=== PATIENT | female | born 1945 | race Caucasian/White ===

== ENCOUNTER → 2016-08-17 | Outpatient (CLI) | payer MEDICARE ==
[~2016-08-17] MED LIST: CLON0.5T4 PO; DICY10CA13 PO; FLUO-138 PO; FLUT16SP EA NOSTRIL; GLIP10TA9 PO; IBUP-1724 PO; LEVO50TA11 PO; LISI10TA7 PO; LISINOPRIL; LORA10TA62 PO; PANT20TA PO; TRIA1TAB3 PO
--- NOTE | 2016-08-17 17:51 | DI ---
Indication: ITS.REASON: M25.561 PAIN IN RT KNEE PROCEDURE: MRI KNEE RIGHT W/O CONTRAST: Encounter: Initial Comparison: None Technique: Multiplanar multisequence MR imaging of the right knee was performed without contrast. Findings: There is a moderate knee effusion. There are moderate arthritic changes involving primarily the medial joint compartment greater than the lateral or patellofemoral joint compartment. There is moderate diffuse chondromalacia without definite focal osteochondral defect. No definite ligamentous injury. The lateral meniscus is unremarkable. There is extensive abnormal signal involving the medial meniscus extending from the posterior horn through the body all the way to the anterior horn with probably horizontal tear reaching the free edge and the tibial articular surface. There is no definite buckle handle component or displaced component. The body of the meniscus is is extruded medially out of the joint space. The extensor tendons are unremarkable. No periarticular abnormality. Impression: Extensive complex tearing involving the body and posterior horn of the medial meniscus with advanced osteoarthritis involving predominantly the medial joint compartment and to a lesser degree the lateral and patellofemoral joint compartment. No definite ligamentous injury. .
== END ==
LOC: IMA 14:40
PROVIDERS: ATTEND Family Medicine
DX: S83.231A Complex tear of medial meniscus, current injury, right knee, initial encounter (principal); X58.XXXA Exposure to other specified factors, initial encounter; Y93.9 Activity, unspecified; Y92.9 Unspecified place or not applicable; Y99.9 Unspecified external cause status; M25.561 Pain in right knee

== ENCOUNTER → 2016-09-17 | Outpatient (CLI) | payer MEDICARE ==
--- NOTE | 2016-09-17 15:37 | DI ---
INDICATION: ITS.REASON: Z01.811 PRE OP CHEST EXAM PROCEDURE: CHEST 2-VIEWS UPRIGHT (PA \T\ LAT) Encounter: Initial COMPARISON: February 28, 2016 FINDINGS: The lungs are clear without evidence of focal abnormal airspace opacity. There is no pleural effusion or pneumothorax. The heart size, mediastinal contours and pulmonary vascularity are within normal limits. IMPRESSION: No acute cardiopulmonary disease. .
== END ==
LOC: IMA 14:58
PROVIDERS: ATTEND Family Medicine
DX: Z01.811 Encounter for preprocedural respiratory examination (principal)

== ENCOUNTER 2016-12-15 07:30 | Inpatient (IN) ==
[2016-12-15 09:26] VITALS: BMI 31.6
[2016-12-15] MEDS ORDERED: TRANEXAMIC ACID 1,000 MG in NS 100 ML IV ONE (09:33)
[2016-12-15] MEDS ORDERED: ONDANSETRON 4 MG/2 ML INJECTION IVP ONE (09:33)
[2016-12-15] MEDS ORDERED: CEFAZOLIN 1 G INJECTION IVP ONE (09:33)
[2016-12-15] MEDS ORDERED: NOZIN NASAL SWAB NAS ONE ×2 (09:33→16:50)
[2016-12-15] MEDS ORDERED: EPINEPHrine 0.25 MG, BUPIVACAINE 0.25% PF 30 ML, MORPHINE SULFATE 15 MG, KETOROLAC INJ ... OPSITE ONE (09:33)
[2016-12-15] MEDS ORDERED: ACETAMINOPHEN 500 MG TABLET PO ONE (09:33)
[2016-12-15] MEDS ORDERED: SALINE FLUSH 10ml SYRINGE IVF PRN (09:33)
[2016-12-15] MEDS ORDERED: METOCLOPRAMIDE 10mg/2ml INJECTION IVP ONE (09:33)
[2016-12-15] MEDS ORDERED: FAMOTIDINE PB 20 MG/50 ML BAG IV ONE (09:33)
[2016-12-15] MEDS ORDERED: LIDOCAINE 1% (10mg/ml) 2mL INJ PF SDV ID ONE (09:33)
[2016-12-15] MEDS: LR 1,000 ML IV SCH ×3 (10:30→15:58)
--- NOTE | 2016-12-15 12:42 | Anesthesia Preoperative Report ---
Anesthesia Preoperative Record - Date and Time Date: 12/15/16 Preoperative Diagnosis: Rt TKA M17.11 primary osteoarthrtis Proposed Procedure: right total knee NPO Since Date: 12/14/16 NPO Since Time: 23:00 Allergies/Adverse Reactions: Allergies Allergy/AdvReac Type Severity Reaction Status Date / Time levofloxacin Allergy Intermediate Verified 11/04/16 09:54 - Vital Signs Vital Signs: Temperature 98.9 F 12/15/16 09:19 Pulse Rate 55 L 12/15/16 11:11 Respiratory Rate 18 12/15/16 09:19 Blood Pressure 159/72 H 12/15/16 09:19 Pulse Oximetry 98 12/15/16 09:19 Oxygen Delivery Method Room Air Height and Weight: Height 1.57 m Weight 78.4 kg Body Mass Index 31.6 - Medications Inpatient Medications: Current Medications Epinephrine HCl 0.25 mg/Bupivacaine HCl 30 ml/Morphine Sulfate 15 mg/Ketorolac Tromethamine 60 mg/Sodium Chloride 65.25 mls @ 1 mls/hr OPSITE INTRAOP ONE PRN Reason: Protocol Stop: 12/18/16 02:47 Lactated Ringer's (Lactated Ringers) 1,000 mls @ 50 mls/hr IV .Q20H SERGIO Last Admin: 12/15/16 10:30 Dose: 50 mls/hr Sodium Chloride (Iv Flush) 10 - 80 ml IVF PRN PRN PRN Reason: Flushing Home Medications: Home Medications Medication Instructions Recorded Confirmed Type Levothyroxine Sodium 50 mcg PO ACB #0 12/01/14 12/15/16 History glipiZIDE [Glipizide] 10 mg PO DAILY #0 04/21/15 12/15/16 History Lisinopril [Prinivil] 40 mg PO HS 11/05/16 12/15/16 History Loratadine [Claritin] 10 mg PO DAILY 11/05/16 12/15/16 History clonazePAM [Clonazepam] 0.5 mg PO HS PRN 11/05/16 12/15/16 History raNITIdine HCl [Zantac] 1 tab PO BID PRN 11/05/16 12/15/16 History Amlodipine [Norvasc] 10 mg PO DAILY 12/11/16 12/15/16 History Cyanocobalamin/Folic Acid [Vitamin 1 each PO DAILY 12/11/16 12/15/16 History L11-Axsic Acid Tablet] FLUoxetine [Prozac] 20 mg PO DAILY 12/11/16 12/15/16 History Nebivolol [Bystolic] 5 mg PO DAILY 12/11/16 12/15/16 History Potassium 99 mg PO DAILY 12/11/16 12/15/16 History Triamterene/Hydrochlorothiazid 1 tab PO DAILY 12/11/16 12/15/16 History [Triamterene-Hctz 37.5-25 mg Tb] Zolpidem Tartrate [Ambien] 10 mg PO HS PRN 12/11/16 12/15/16 History - Medical History Cardiovascular: Reports: Hypertension Neuro/Musculoskeletal: Reports: Depression (anxiety ) Renal/Endocrine: Reports: Diabetes Mellitus Type 2 - Surgical History HEENT Surgeries: Reports: Nose Surgery (multiple sinus surgeries), Tonsillectomy GI Surgery/Treatments: Reports: Cholecystectomy, Colonoscopy (2012) Musculoskeletal Surgery/Tx: Reports: Other (ORIF left wrist) Reproductive Surgery/Treatment: Reports: Hysteroscopy, Tubal Ligation Hx Family Anesthesia Reaction: No History of Motion Sickness: No - Social History Smoking Status: Never smoker - Pertinent Findings Laboratory: CBC and BMP 12/15/16 09:43 BMP 12/15/16 09:43 Sodium 143 Potassium 3.7 Chloride 107 Carbon Dioxide 27 BUN 16.0 Creatinine 0.9 Glucose 149 H Calcium 9.2 EKG Rhythm: Sinus Bradycardia - Physical Exam Respiratory Exam: Present: lungs clear Cardiovascular Exam: Present: regular rate and rhythm - Airway Assessment Mallampati Score: III TMD: 2 Fingerbreadths Neck Extension: fair Teeth: partial lower dentures Overall Assessment: may be difficult intubation - Plan Anesthesia: General Inhalation Gases Peripheral Nerve Block: Saphenous-Right - Discussion Discussion: Discussed risks/options/alternatives of anesthesia and questions answered. Patient consents. Nursing pain assessment noted. Attestation Statement: Prior to the delivery of any anesthetic medication, I examined the patient, developed the plan, obtained the patient's consent and discussed the risk and benefits of the procedure with the patient/guardian.
[2016-12-15] MEDS ORDERED: MIDAZOLAM 2mg/2ml INJECTION IVP ONE (12:45)
[2016-12-15] MEDS ORDERED: SCOPOLAMINE 1.5 MG PATCH TD ONE (12:45)
[2016-12-15] MEDS ORDERED: ROPIVACAINE 0.5% (5mg/ml) 30ml INJ ONE ×2 (13:00)
[2016-12-15] MEDS ORDERED: PROPOFOL 500 MG/50 ML VIAL IV ONE (13:11)
[2016-12-15] MEDS ORDERED: FentaNYL 100 MCG/2 ML INJECTION ONE ×3 (13:11→14:16)
[2016-12-15] MEDS ORDERED: LIDOCAINE 2% (100mg/5mL) PF 5ml vl ONE (13:11)
[2016-12-15] MEDS ORDERED: KETAMINE 500 MG/10 ML INJECTION ONE (13:12)
[2016-12-15] MEDS ORDERED: MIDAZOLAM 2mg/2ml INJECTION ONE (13:12)
[2016-12-15] MEDS ORDERED: GLYCOPYRROLATE 0.4 MG/2 ML INJECTION ONE (13:22)
[2016-12-15] MEDS ORDERED: VANCOMYCIN 1,000 MG INJECTION ONE (13:27)
[2016-12-15] MEDS ORDERED: EPHEDRINE 50mg/ml INJECTION ONE (13:28)
--- NOTE | 2016-12-15 13:39 | History & Physical Update ---
- History and Physical Update Date: 12/15/16 Update: I evaluated this patient and found no changes in the history and clinical exam findings. The treatment plan and recommendations are also unchanged from the previous documentation.
[2016-12-15] MEDS ORDERED: ACETAMINOPHEN IV 1,000 MG/100 ML VIAL IV ONE (14:01)
--- NOTE | 2016-12-15 14:09 | Anesthesia Procedure Note ---
Peripheral Nerve Blockade - Procedure Physician: Lucho Lainez MD Date: 12/15/16 Surgical Procedure: right knee arthoplasty Discussion: Discussed risks/options/alternatives of anesthesia and questions answered. Patient consents. Nursing pain assessment noted. Block Start: 12:59 Block Stop: 13:04 Blocked Employed: Adductor Canal Indication: Post-Operative Pain Approach: Right Side Confirmed Position: Supine Patient: Consent, Risks/Benefits Discussed, Informed, Post Block Act. Discussed Initial Vital Signs: Temperature 98.9 F 12/15/16 09:19 Temperature Source Oral 12/15/16 09:19 Pulse Rate 50 L 12/15/16 09:19 Respiratory Rate 18 12/15/16 09:19 Blood Pressure 159/72 H 12/15/16 09:19 Blood Pressure Mean 101 12/15/16 09:19 Pulse Oximetry 98 12/15/16 09:19 Oxygen Delivery Method 12/15/16 09:19 Post Vital Signs: Temperature 98.9 F 12/15/16 09:19 Pulse Rate 50 L 12/15/16 13:04 Respiratory Rate 20 12/15/16 13:04 Blood Pressure 142/65 H 12/15/16 13:04 Pulse Oximetry 96 12/15/16 13:04 Oxygen Delivery Method Nasal Cannula Oxygen Flow Rate 2 Initial Pain Pain Score: 3 Post Block Pain Score: 3 Prep: Chlorhexadine/ETOH Ultrasound Used?: Yes - Injectate Ropivacaine (%): 0.5 Ropivacaine (mL): 20 Was Epi 1:200,000 Used?: No Injection: Injection made incrementally with constant monitoring and aspiration every ml
[2016-12-15] MEDS ORDERED: VANCOMYCIN 1,000 MG INJECTION IAR ONE (14:19)
[2016-12-15] MEDS ORDERED: ONDANSETRON 4 MG/2 ML INJECTION ONE (15:05)
--- NOTE | 2016-12-15 15:23 | Anesthesia Postoperative Note ---
- Date and Time Date: 12/15/16 Time: 15:25 - Status Patient Participated in Evaluation: Patient Participated in Person Vital Signs: Temperature 98.9 F 12/15/16 09:19 Pulse Rate 50 L 12/15/16 13:04 Respiratory Rate 20 12/15/16 13:04 Blood Pressure 142/65 H 12/15/16 13:04 Pulse Oximetry 96 12/15/16 13:04 Oxygen Delivery Method Nasal Cannula Oxygen Flow Rate 2 Respiratory Function: Airway Patent Cardiovascular Function: Regular Pulse EKG Rhythm: Normal Sinus Rhythm Mental Status: Alert and Oriented Pain Intensity: 4 Hydration: IV Infusing Complications During Recover: None Apparent - Follow-Up Instructions Instructions: Per Surgeon
[2016-12-15] MEDS: HYDROMORPHONE 2 MG/ML INJECTION IVP PRN ×3 (15:53→16:27)
--- NOTE | 2016-12-15 15:58 | Operative Note ---
- Procedure Side: right Preoperative Diagnosis: knee primary DJD Postoperative Diagnosis: Same as preoperative diagnosis. Operation: total knee arthroplasty Surgeon: Jose C Lainez MD Ed Special Education Teacher: Aroldo Gonzalez Complications: None. Anesthesia: General TIVA Peripheral Nerve Block: Saphenous-Right Estimated Blood Loss: See Anesthesia Record. Fluids: Please see Anesthesia Record. Description of Procedure: Mrs. Ge and her right knee were identified and marked in the preoperative holding area. She was brought back to the operating suite and placed supine on the operating table. Spinal anesthetic was administered. The operative lower extremity was prepped and draped in a sterile fashion. Timeout was performed. She had a fixed varus deformity with no flexion contracture. An anterior midline incision followed by medial parapatellar arthrotomy was performed. The tourniquet was not used until cementing. Hemostasis was obtained with electrocautery. The patella was resurfaced to a size 29. A distal femoral osteotomy was then performed in 5 of valgus using intramedullary guide. The femur was sized at a 3 and rotation set using the epicondylar axis. Distal femoral cuts were performed with a 4-in-1 cutting block. A proximal tibial cut was then made perpendicular to its long axis using an extramedullary guide. At this point remaining meniscus and osteophytes were removed and joint cocktail was injected throughout soft tissue. Trial components were placed with a 9 mm spacer. Partial release of the PCL was performed. This allowed for full extension and flexion and the patella tracked well. The leg was then exsanguinated and the tourniquet inflated to 250 mmHg. The tibia was then stamped at a size 3 at the proper rotation. The bone was then prepared for cementing and Edith Triathalon components were cemented into place and allowed to cure in extension. The tourniquet was then let down and hemostasis obtained with electrocautery. Betadine solution was used during the curing period for 3 minutes. 1 g of vancomycin powder was placed into the joint before the capsulotomy was repaired with #1 Vicryl. I then left my financial legal assistant close the subcutaneous tissue and skin with 2-0 Vicryl and Monocryl. Dermabond was used on the skin. The drapes were then removed and she was taken to recovery room under the care of anesthesia.
[2016-12-15] MEDS ORDERED: ONDANSETRON 4 MG/2 ML INJECTION IV ONE ×2 (16:20)
--- NOTE | 2016-12-15 16:27 | XRay Report ---
Indication: postoperative image PROCEDURE: XR knee RT 2V: Encounter: Initial Comparison: September 02, 2016 Findings: Postoperative changes of right total knee replacement are seen. There is expected postoperative subcutaneous gas. No evidence of hardware failure or acute fracture. No retained radiopaque surgical instruments or sponges. Overlying material causing artifact. Impression: New right total knee prosthesis without evidence of immediate complication. .
[2016-12-15] MEDS ORDERED: ClonazePAM 0.5 MG TABLET PO PRN (16:50)
[2016-12-15] MEDS ORDERED: Oxycodone *IR* 5 MG TABLET PO PRN (16:50)
[2016-12-15] MEDS ORDERED: DiphenhydrAMINE 25 MG CAPSULE PO PRN (16:50)
[2016-12-15] MEDS ORDERED: RANITIDINE 150 MG TABLET PO PRN (16:50)
[2016-12-15] MEDS ORDERED: ONDANSETRON 4 MG/2 ML INJECTION IVP PRN (16:50)
[2016-12-15] MEDS ORDERED: DiphenhydrAMINE 50 MG/ML INJECTION IVP PRN (16:50)
[2016-12-15] MEDS: NS 1,000 ML IV SCH (17:18)
[2016-12-15] MEDS: ACETAMINOPHEN 325 MG TABLET PO SCH (17:52)
[2016-12-15] MEDS ORDERED: ACETAMINOPHEN 160mg/5ml ORAL LIQUID PO PRN ×2 (17:55→18:24)
--- NOTE | 2016-12-15 18:53 | Consult Note ---
Consult Information - Data of Consult Consult date: 12/15/16 Requesting Physician: Lucho Lainez MD Primary Care Provider: [facility] - Consult Narrative Reason for consult: hypertension, bradycardia History of present illness: Mrs. Ge is a 71-year-old female hospitalized by Dr. Lainez for right TKA for underlying degenerative joint disease. Surgery has been previously counseled on several occasions due to uncontrolled hypertension which the patient variably attributes to severe pain, stress, and medications for her sinuses. She's recently been started on amlodipine and Bystolic although timing of medication changes is unclear. Intraoperatively bradycardia developed with heart rate as low as 45 at one point. Blood pressures have been variable with preoperative blood pressure 159/72, maximum blood pressure 201/81, and current blood pressure 145/73. The patient reports previously being treated with lisinopril ( discharged on 10 mg lisinopril and Dyazide 37.5/25 in 02/2016) which was discontinued at some point for unclear reason. She describes chronic headaches which she attributes to sinus symptoms, denies chest pain, palpitations, or hematuria. [facility] Patient Stated Medical History Hypertension Diabetes mellitus, type II-A1c reported to be 6.? In August 2016 Hyperlipidemia Hypothyroidism Depression/anxiety with panic attacks GERD DJD Bilateral sciatica requiring prior injections Surgical History: Hysterectomy, Tonsillectomy, nasal surg-multiple, cholecystectomy, Lt wrist-ORIF, tubal ligation Family History: Family History (Last Reviewed 11/04/16 @ 10:23 by Lucho Lainez MD) Father HTN (hypertension) Heart attack Mother Diabetes Osteoarthritis Family History Updates: Additional family history of breast cancer and mood disorder reported - Social History Smoking status: Never smoker Alcohol intake frequency: does not drink Current residence: Apartment/Private Home Social history: PCP-Lisa Jimenez, full code Review of Systems Comprehensive ROS: completed and no additional positive findings except those as stated (blurry vision and dry eyes, trouble swallowing pills, reflux, occasional palpitations, intermittent nausea-patient correlates with medications frequently, nocturia, some medications caused red spots on her skin , anxiety/panic attack due to severe pain in her knee, chronic sinus trouble with headaches and nasal dryness, puffy face, weakness in her legs due to knee pain. Remainder of review of systems was negative or as noted in the history of present illness.) Medications Home Medications Medication Instructions Recorded Confirmed Type Levothyroxine Sodium 50 mcg PO ACB #0 12/01/14 12/15/16 History glipiZIDE [Glipizide] 10 mg PO DAILY #0 04/21/15 12/15/16 History Lisinopril [Prinivil] 40 mg PO HS 11/05/16 12/15/16 History Loratadine [Claritin] 10 mg PO DAILY 11/05/16 12/15/16 History clonazePAM [Clonazepam] 0.5 mg PO HS PRN 11/05/16 12/15/16 History raNITIdine HCl [Zantac] 1 tab PO BID PRN 11/05/16 12/15/16 History Amlodipine [Norvasc] 10 mg PO DAILY 12/11/16 12/15/16 History Cyanocobalamin/Folic Acid [Vitamin 1 each PO DAILY 12/11/16 12/15/16 History T07-Bvrvc Acid Tablet] FLUoxetine [Prozac] 20 mg PO DAILY 12/11/16 12/15/16 History Nebivolol [Bystolic] 5 mg PO DAILY 12/11/16 12/15/16 History Potassium 99 mg PO DAILY 12/11/16 12/15/16 History Triamterene/Hydrochlorothiazid 1 tab PO DAILY 12/11/16 12/15/16 History [Triamterene-Hctz 37.5-25 mg Tb] Zolpidem Tartrate [Ambien] 10 mg PO HS PRN 12/11/16 12/15/16 History Allergies Allergy/AdvReac Type Severity Reaction Status Date / Time levofloxacin Allergy Intermediate Verified 11/04/16 09:54 Exam Vital Signs: Temperature 97.6 F 12/15/16 17:15 Pulse Rate 55 L 12/15/16 18:15 Respiratory Rate 18 12/15/16 17:15 Blood Pressure 161/77 H 12/15/16 18:15 Pulse Oximetry 95 12/15/16 18:15 Oxygen Delivery Method Room Air EXAM: General-NAD, alert HEENT-PERRL, EOMI without nystagmus, conjugate gaze, conjunctiva clear, sclera anicteric facial structures symmetric, oropharynx clear, neck supple and without adenopathy Lungs-respirations nonlabored, good airflow, breath sounds clear Cardiac-regular rhythm, S1-S2 Abd-soft, nontender, bowel sounds present Ext-without edema, Polar Pack on right knee Skin-without rash or evidence of wounds MS-no active synovitis Neuro-cranial nerves 3-12 intact, motor tone normal, no tremors evident, sensation intact to light touch symmetrically distal extremities 4, [employer] 5/5, dorsiflexion/plantarflexion intact bilaterally with retained power Psych-some push of speech and perseveration, cooperative Height/Weight/BMI: Height 1.57 m Weight 78.4 kg Body Mass Index 31.6 Results - Labs CBC & Chem 7: 12/15/16 09:43 - ECG Data Tracing #1 I reviewed this ECG and interpreted as documented below: (sinus bradycardia, rate 45, T-wave inversion in lead III without ST changes; this is unchanged from an EKG in 2016 when patient had bradycardia with rate of 45 and T inversion in lead III) Assessment and Plan (1) HTN (hypertension) Current visit: No Status: Chronic (2) Sinus bradycardia Current visit: Yes Status: Acute Resuscitation Status: Full Code Assessment and Plan: Impression: Hypertension, uncontrolled Sinus bradycardia Diabetes mellitus, diabetic nephropathy, CKD-stage II, 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 Bystolic will be held initially and blood pressures followed. Patient indicated her intent to resume lisinopril but she has listed as taking 40 mg daily on her medication list. I think there is some uncertainty about what medications the patient actually takes at home based on her reported difficulty swallowing medications and side effects she describes. At present continue amlodipine, lisinopril, and diuretic. Monitor renal function and heart rate on telemetry. Of note sinus bradycardia with heart rate of 45 previously seen on EKG a little over a year ago at which time records indicate patient was taking no blood pressure medications because "they don't work". May have underlying bradycardia not due to beta beatriz. Will additionally monitor blood sugars and assist with glucose control as needed. Agree with diabetic diet, oral agent currently on hold pending demonstration of good oral intake. Corrective insulin ordered if needed overnight. Anticipate resumption of glipizide in the next 24 hours. Continue home psychiatric regimen. Discussed with Aroldo JEFFERSON, nursing, altered records reviewed, EKGs-current/ old reviewed, laboratory data reviewed. Hospital Course Summary Disclaimer: The visit summary below is not to be considered part of the above Progress Note. Sepsis Assessment - Evaluation Sepsis screening result: No Definite Risk
[2016-12-15] MEDS ORDERED: INSULIN ASPART 100unit/ml INJECTION SQ PRN (19:17)
[2016-12-15] MEDS: ASPIRIN *EC* 325 MG TABLET PO SCH (20:50)
[2016-12-15] MEDS: CEFAZOLIN 2 G in NS 100 ML IV SCH (20:51)
[2016-12-15] MEDS: INSULIN ASPART 100unit/ml INJECTION SQ PRN (20:51)
[2016-12-15] MEDS: DOCUSATE SODIUM 100 MG CAPSULE PO SCH (20:51)
[2016-12-15] MEDS ORDERED: LISINOPRIL 40 MG TABLET PO SCH (21:00)
[2016-12-15] MEDS ORDERED: SENNOSIDES 8.6 MG TABLET PO SCH (21:00)
[2016-12-15] MEDS: ACETAMINOPHEN 160mg/5ml ORAL LIQUID PO SCH (23:00)
[2016-12-15] MEDS: NOZIN NASAL SWAB NAS SCH (23:00)
[2016-12-16] MEDS: ACETAMINOPHEN 325 MG TABLET PO SCH (00:08)
[2016-12-16] MEDS: CEFAZOLIN 2 G in NS 100 ML IV SCH (04:25)
[2016-12-16] MEDS: NOZIN NASAL SWAB NAS SCH ×2 (05:23→14:54)
[2016-12-16] MEDS: ACETAMINOPHEN 160mg/5ml ORAL LIQUID PO SCH ×3 (06:05→14:54)
[2016-12-16] MEDS: NS 1,000 ML IV SCH (06:09)
[2016-12-16] MEDS ORDERED: LEVOTHYROXINE 50 MCG TABLET PO SCH (06:30)
[2016-12-16] MEDS: FLUoxetine 20 MG CAPSULE PO SCH ×2 (08:33→10:36)
[2016-12-16] MEDS ORDERED: TRIAMTERENE/HCTZ 37.5 MG-25 MG TABLET PO SCH (09:00)
[2016-12-16] MEDS ORDERED: FOLBIC TABLET PO SCH (09:00)
[2016-12-16] MEDS ORDERED: AMLODIPINE 10 MG TABLET PO SCH (09:00)
[2016-12-16] MEDS ORDERED: POLYETHYL GLYCOL 3350 17gm PACKET PO SCH (09:00)
[2016-12-16] MEDS ORDERED: FLUTICASONE NASAL SPRAY 50mcg EA NOSTRIL SCH (09:00)
[2016-12-16] MEDS ORDERED: LORATADINE 10 MG TABLET PO SCH (09:00)
[2016-12-16] MEDS: DOCUSATE SODIUM 100 MG CAPSULE PO SCH (10:35)
[2016-12-16] MEDS: ASPIRIN *EC* 325 MG TABLET PO SCH (11:02)
[2016-12-16] MEDS ORDERED: FALL RISK - PHARMACY CONSULT MC PRN (11:22)
--- NOTE | 2016-12-16 12:12 | Orthopedic Progress Note ---
Date: Doing well. No specific concerns. Orthopedic Objective Vital signs: Temperature 97.3 F 12/16/16 07:30 Pulse Rate 60 12/16/16 08:00 Respiratory Rate 16 12/16/16 07:30 Blood Pressure 171/67 H 12/16/16 07:30 Pulse Oximetry 90 12/16/16 07:30 Oxygen Delivery Method Room Air Oxygen Flow Rate 2 Height and Weight: Height 5 ft 2 in Weight 83.6 kg Body Mass Index 31.6 - Constitutional General Appearance: Present: no acute distress - Respiratory Exam Present: non-labored - Cardiovascular Exam Present: pedal pulses intact Capillary Refill: < 2-3 Seconds - Extremities Exam Absent: calf tenderness - Neurological Exam Present: no deficits. Absent: intact to light touch - Psychiatric Exam Present: alert - Wound Management Right Knee Drainage Amount: None Primary Dressing: Mepilex - Labs Result Diagrams: 12/16/16 04:28 12/16/16 04:28 Abnormal lab results 12/16/16 12/16/16 Range/Units 04:28 04:28 WBC 11.7 H (4.5-11.0) T/MM3 RBC 3.77 L (4.00-5.20) M/MM3 Hgb 11.3 L (12-16) GM/DL Hct 35.1 L (36-46) % Potassium 3.4 L (3.6-5) MEQ/L Calcium 8.2 L D (8.4-10.2) MG/DL H & H 12/16/16 Range/Units 04:28 Hgb 11.3 L (12-16) GM/DL Hct 35.1 L (36-46) % Orthopedic Assessment and Plan (1) Arthritis of knee, right Status: Resolved Assessment and Plan: Doing well. Continue current treatment. Anticipate discharge today. Hospital Course Summary Disclaimer: The visit summary below is not to be considered part of the above Progress Note.
[2016-12-16] MEDS: INSULIN ASPART 100unit/ml INJECTION SQ PRN ×2 (12:51→15:03)
[2016-12-16 13:24] VITALS: BP 136/74; PULSE 55; RESP 20; TEMP 98.2; O2SAT 96
--- NOTE | 2016-12-16 13:44 | Discharge Summary ---
Orthopedic Discharge Info Date of admission: 12/15/16 08:57 Attending Physician: Lucho Lainez MD Consults: 12/15/16 09:33 Consult to Anesthesiology [CONS] Routine Consulting Provider: RONNY Onofre Reason For Exam: Preoperative Assessment 12/15/16 16:50 Case Management Consult [CONS] Routine Reason For Exam: Discharge Planning DME-Walker [CONS] Routine Height: 5 ft 2 in Weight: 172 lb 13.478 oz Comment: change dressing in 2 weeks Physician Consult [CONS] Routine Consulting Provider: Areli Burgos Reason For Exam: Bradycardia, Hx of HTN, Ordering Provider has Notified Special Officer Automat: No Total Joint Outpatient Therapy [CONS] Routine Comment: change dressing in 2 weeks - Discharge Diagnosis (1) Arthritis of knee, right Status: Resolved - Procedures Procedures: Procedures Replacement of Right Knee Joint with Synthetic Substitute, Cemented, Open Approach (12/15/16) - Laboratory Result Diagrams: 12/16/16 04:28 12/16/16 04:28 Laboratory: Abnormal lab results 12/16/16 12/16/16 Range/Units 04:28 04:28 WBC 11.7 H (4.5-11.0) T/MM3 RBC 3.77 L (4.00-5.20) M/MM3 Hgb 11.3 L (12-16) GM/DL Hct 35.1 L (36-46) % Potassium 3.4 L (3.6-5) MEQ/L Calcium 8.2 L D (8.4-10.2) MG/DL H & H 12/16/16 Range/Units 04:28 Hgb 11.3 L (12-16) GM/DL Hct 35.1 L (36-46) % Orthopedic Discharge HPI - HPI Comments This patient was admitted for elective surgical tx of end stage degenerative joint disease that failed to respond to conservative treatment. Further details of this is found in the admission H&P. Orthopedic Hospital Course Hospital course: 12/16/16 13:42 After appropriate preoperative clearance and signing of operative consent, the patient was given IV antibiotics, according to orthopedic protocol. The patient was taken to the operating room and underwent elective joint arthroplasty. Following surgery, antibiotics were discontinued less than 24 hours according to joint protocol. Appropriate anticoagulants were initiated and SCDs added for DVT prevention. The dressing was clean, dry, and intact. Pain control was obtained via multimodal approach. Bowel motivation addressed with scheduled and PRN medications. Early mobilization was initiated through PT services. Discharge arrangements made by a collaborative effort between the patient and Case Management. Follow-up is scheduled in 2-3 weeks. Discharge instructions given by orthopedic providers and nursing staff at discharge. Discharge condition was good. Ongoing care required?: No - Postoperative Anemia patient received IVF, labs monitored daily, no intervention required, HGB drop- acceptable - Leukocytosis due to surgical stress response Discharge Plan - Med Rec/Dispo Referrals/Follow Up: Lucho Lainez MD [Physician] - 01/06/17 10:30 am Prescriptions: New Aspirin *EC* [Ecotrin] 325 mg PO BID #84 tablet Oxycodone *Ir* [Roxicodone *Ir*] 5 - 15 mg PO Q3H PRN #60 tablet PRN Reason: Breakthrough Pain Continue glipiZIDE [Glipizide] 10 mg PO DAILY #0 Ibuprofen 200 - 400 mg PO Q4H PRN 30 Days #0 tab PRN Reason: PAIN raNITIdine HCl [Zantac] 1 tab PO BID PRN PRN Reason: Epigastric Distress Loratadine [Claritin] 10 mg PO DAILY clonazePAM [Clonazepam] 0.5 mg PO HS PRN PRN Reason: Anxiety Nebivolol [Bystolic] 5 mg PO DAILY Cyanocobalamin/Folic Acid [Vitamin K20-Axfxx Acid Tablet] 1 each PO DAILY Potassium 99 mg PO DAILY Zolpidem Tartrate [Ambien] 10 mg PO HS PRN PRN Reason: Sleep FLUoxetine [Prozac] 20 mg PO DAILY Levothyroxine Sodium 50 mcg PO ACB #0 Fluticasone Nasal Wesley [Flonase] 2 spray EA NOSTRIL DAILY 30 Days #0 ml Lisinopril [Prinivil] 40 mg PO HS Amlodipine [Norvasc] 10 mg PO DAILY Triamterene/Hydrochlorothiazid [Triamterene-Hctz 37.5-25 mg Tb] 1 tab PO DAILY - Disposition [facility]
[2016-12-16] MEDS ORDERED: SENNOSIDES 8.6 MG TABLET PO PRN (15:16)
--- NOTE | 2016-12-16 18:58 | Progress Note ---
Subjective: Mrs. Ge was seen shortly after ambulating with physical therapy this morning. She complained of minor pain in her knee but was with pleased with her surgical outcome. She continued to complain about side effects from multiple medications. She was taking by mouth well although reported some mild nausea this morning. She had minimal lightheadedness. Heart rate has been variable overnight as has blood pressure. She denied dyspnea or palpitations. Objective Vital signs: Temperature 98.2 F 12/16/16 11:00 Pulse Rate 55 L 12/16/16 11:00 Respiratory Rate 20 12/16/16 11:00 Blood Pressure 136/74 12/16/16 11:00 Pulse Oximetry 96 12/16/16 11:00 Oxygen Delivery Method Room Air EXAM General-NAD, alert, talkative HEENT-conjunctiva clear Lungs-respirations nonlabored, good airflow, breath sounds clear Cardiac-regular rhythm, S1-S2 Abd-soft, nontender, bowel sounds present Ext-without edema Neuro-moving all extremities well, ambulating without assistance Psych-push of speech, perseverates - Rhythm: Normal Sinus Rhythm Height/Weight/BMI: Height 1.57 m Weight 83.6 kg Body Mass Index 31.6 Results - Labs CBC & Chem 7: 12/16/16 04:28 12/16/16 04:28 Assessment and Plan (1) HTN (hypertension) Status: Chronic (2) Sinus bradycardia Status: Acute Assessment and Plan: Impression: Hypertension, uncontrolled Sinus bradycardia Diabetes mellitus, diabetic nephropathy, CKD-stage II, without insulin use Depression/anxiety Hyperlipidemia DJD, status post right TKA 12/15/16 Recommendations: Blood pressure has improved in general with resumption of reported home medications. Bystolic remains on hold and patient refuses to resume it although I think it's unlikely that it's related to bradycardia demonstrated yesterday. Patient advised to follow-up with her outpatient provider regarding ongoing blood pressure management and for reassessment of bradycardia in the near future. Blood glucoses adequately controlled-fasting 141, postprandial 158 after breakfast. Stable for discharge from my perspective on home medications. Laboratory data reviewed, discussed with nursing and Dr. Lainez. Sepsis Assessment - Evaluation Sepsis screening result: No Definite Risk Hospital Course Summary Disclaimer: The visit summary below is not to be considered part of the above Progress Note.
[2016-12-17] MEDS ORDERED: BISACODYL 10 MG SUPPOSITORY RECTALLY SCH (20:00)
[2016-12-18] MEDS ORDERED: SCOPOLAMINE PATCH REMOVAL TD SCH (13:00)
== END 2016-12-16 15:31 | disposition home health service (06) | DRG 470 ==
LOC: SRG 08:57
PROVIDERS: ADMIT Orthopaedic Surgery; ATTEND Orthopaedic Surgery

== ENCOUNTER 2017-01-07 17:25 | Inpatient (IN) ==
--- OUTSIDE RECORDS SUMMARY | 2017-01-07 17:32 | External Medical Summary ---
:1945 Author Organization [employer] Care Team Providers Name Role Phone Ammy Bennett Provider Role Unavailable Allergies No Known Allergies Problems No Known Problems Medications No Known Medications Results No Known Results Summary Purpose eClinical[employer] Submission
--- OUTSIDE RECORDS SUMMARY | 2017-01-07 17:32 | External Medical Summary ---
:1945 Author Organization [employer] Care Team Providers Name Role Phone Liz Weber Provider Role Unavailable Allergies No Known Allergies Problems No Known Problems Medications No Known Medications Results No Known Results Summary Purpose eClinicalWorks Submission
[2017-01-07 17:42] VITALS: BMI 31.1
[2017-01-07] MEDS ORDERED: FALL RISK - PHARMACY CONSULT MC PRN (20:41)
[2017-01-07] MEDS: HYDROCODONE/APAP 5mg/325mg TABLET PO PRN (20:53)
[2017-01-07] MEDS: ATORVASTATIN 40 MG TABLET PO SCH (20:53)
[2017-01-07] MEDS ORDERED: PNEUMOCOCCAL 13 VACCINE 0.5ml INJECTION IM ONE (21:32)
[2017-01-08] MEDS: LEVOTHYROXINE 50 MCG TABLET PO SCH (05:32)
[2017-01-08] MEDS: GlipiZIDE 5 MG TABLET PO SCH ×2 (08:29→18:27)
[2017-01-08] MEDS: ClonazePAM 0.5 MG TABLET PO SCH (08:29)
[2017-01-08] MEDS: AMLODIPINE 10 MG TABLET PO SCH (08:30)
[2017-01-08] MEDS: CLOPIDOGREL 75 MG TABLET PO SCH (08:30)
[2017-01-08] MEDS: TRIAMTERENE/HCTZ 37.5 MG-25 MG TABLET PO SCH (08:30)
[2017-01-08] MEDS: HYDROCODONE/APAP 5mg/325mg TABLET PO PRN ×2 (08:30→19:18)
[2017-01-08] MEDS: LISINOPRIL 40 MG TABLET PO SCH (08:30)
[2017-01-08] MEDS: FLUoxetine 10 MG CAPSULE PO SCH (08:31)
--- NOTE | 2017-01-08 11:10 | IRU History & Physical Report ---
[facility] IRU Date: 056 Chief complaint: Right sided weakness HPI: Ms. Ge is a very pleasant 72-year-old female who underwent a right total knee replacement by Dr. Lainez on 12/15/2016 at [facility]. She was recovering from this nicely at home. She was receiving home health services. She progressed to not even needing a walker nor a cane. Subsequently, she started feeling badly. She felt weak and lightheaded. Sultana like she was going to pass out but did not do so. Subsequently developed some slurred speech. The ambulance was called and she requested direct transfer to [facility]. She was admitted to [facility] on 01/03/[address] Ammy Rowley. While at [place], she was noted to have right sided partial hemiparesis. MRI of the brain demonstrated acute ischemia in the left anterior lynda without evidence of hemorrhagic conversion nor mass effect. Carotid ultrasound demonstrated only mild atherosclerotic plaque in both carotid systems without hemodynamically significant stenosis. CT head showed no acute intracranial hemorrhage nor CT evidence of acute stroke. Transthoracic echocardiogram demonstrated ejection fraction of around 55-65% with some dilatation of left atrium. Lipid assessment demonstrated LDL of 125 HDL 38 total cholesterol 197. 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 They recommended keeping her on a dysphagia 1 diet and continued evaluation by speech therapy. Plavix was continued while aspirin was discontinued. 8 lovastatin was continued at 40 mg. She did have some hypokalemia. Her A1c in [place] was 6.3%. She reports that she does check her blood sugars at home twice daily. Fasting sugars are always around 90 and after eating the baby up into the 138 range. She was on insulin in the distant past but has more recently been on oral agents. She notes that she has fallen a couple of times recently. She has also had a poor oral intake due to fear of choking. In addition she reports episodes of dizziness. She has taken meclizine for this with benefit. I am not clear if this is true vertigo or not based on her report. Results of the stroke have been primarily right upper arm and hand weakness, right lower extremity weakness, some slurred speech, dysphagia and numbness. In addition she has developed new diplopia when she gazes to her left. She has a long history of depression and states that she has been crying frequently since the year 1999. Uncertain really what triggered that. At home, she lives in an apartment by herself. She is . She does not have any stairs. Apart from the use of the assistive device for the knee replacement she does not routinely use a walker nor a cane. She states that her primary desire is to get back home and able to walk and care for herself. She has not been incontinent. Prior to the stroke she was independent for ADLs and able to ambulate without difficulty. She clearly continues to have difficulty with fine motor movement involving the right upper extremity. The following medical conditions are noted and require active monitoring and/or management: 1. Acute CVA Left Lynda, ischemic with neg carotids and echo: She has recently been started on Plavix. She is at risk for recurrent stroke. She will require medical management of monitoring of her neurologic status. 2. DM II: She is on oral agents. Because of her dysphagia and recent stroke she is at risk for hypoglycemia or hyperglycemia. This will need to be monitored carefully in the acute rehabilitation unit. 3. Hypertension: She is on oral agents for her hypertension. She is at risk for hypotension and further hypertension and this will also need to be monitored. 4. Dysphagia: Because of her difficulty swallowing related to the stroke as well as the cricopharyngeal bar, she is at risk for malnutrition. 5. Dizziness: She reports subacute to chronic "dizziness." Not certain if this is truly vertigo. However she has been benefited by the use of meclizine and requests that we continue this. This may impact her therapy as well. 6. Depression: This appears to be a chronic issue for her. She is on antidepressants. The following therapies will be needed: 1. Physical therapy: for transfers and ambulation and stairs. 2. Occupational therapy: for ADL's and transfers. 3. Dietitian: To ensure adequate nutrition. 4. Medical management: for the above conditions. 5. 24 hour Rehabilitation Nursing to monitor and address the following: Blood sugars, neurologic status, blood pressures, adequate nutrition. Review of Systems - Constitutional Constitutional: Present: fatigue, headache(s), night sweats, weakness, weight gain, weight loss - EENMT Eyes: Present: change in vision, diplopia. Absent: blurry vision Ears: Absent: ear discharge Balance: Present: vertigo, other (has had a couple of falls recently.) Nose: Absent: change in smell, pain Mouth/Throat: Absent: sore throat - Cardiovascular Cardiovascular: Present: heart murmur. Absent: chest pain, palpitations, syncope, dyspnea on exertion, orthopnea, edema Rhythm: Present: regular rhythm Vascular: Absent: intermittent claudication - Respiratory Respiratory: Absent: cough, dyspnea, hemoptysis, dyspnea on exertion, wheezing - Gastrointestinal Gastrointestinal: Present: constipation, diarrhea, dyspepsia, nausea, vomiting. Absent: abdominal pain, coffee ground emesis - Musculoskeletal Musculoskeletal: Present: abnormal gait, joint swelling (right knee since the surgery.). Absent: myalgias - Integumentary/Breasts Integumentary: Absent: alopecia - Neurological Neurological: Present: abnormal gait, abnormal speech (slurred speech noted.). Absent: abnormal movements, memory loss - Psychiatric Psychiatric: Present: anxiety, depression PFSH Patient Stated Medical History Hypertension Yes Sleep Apnea No Diabetes Mellitus Type 2 Yes Constipation Yes Gastroesophageal Reflux Yes Disease Other GI Yes: IBS, constipation Hx Incontinence Yes: Used to leak after hysterectomy Osteoarthritis Yes Anesthesia Reactions Yes: N/V Depression Yes: anxiety Uterine Prolapse Yes Clinic Medical History (Last Reviewed 11/04/16 @ 10:23 by Lucho Lainez MD) Hernández's palsy (Chronic Medical) Osteoarthritis (Chronic Medical) Depression (Chronic Medical) Anxiety (Chronic Medical) Thyroid disease (Chronic Medical) High cholesterol (Chronic Medical) HTN (hypertension) (Chronic Medical) Surgical History: Hysterectomy, Tonsillectomy, nasal surg-multiple, cholecystectomy, Lt wrist-ORIF, tubal ligation. Recent right total knee replacement. BS&O with the hysterectomy Family History: Family History (Last Reviewed 11/04/16 @ 10:23 by Lucho Lainez MD) Father HTN (hypertension) Heart attack Mother Diabetes Osteoarthritis Family History Updates: Mother had what sounds like hiatal hernia surgery and subsequent sepsis. She apparently from that. - Social History Smoking status: Former smoker (reports that she smoked "socially" a number of years ago. 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 She lives alone here in [place]. Formerly lived in [place] for a number of years. Medications Home Medications Medication Instructions Recorded Confirmed Type Levothyroxine Sodium 50 mcg PO ACB #0 12/01/14 01/07/17 History glipiZIDE [Glipizide] 10 mg PO BIDWM #0 04/21/15 01/07/17 History Lisinopril [Prinivil] 40 mg PO DAILY 11/05/16 01/07/17 History clonazePAM [Clonazepam] 0.5 mg PO DAILY 11/05/16 01/07/17 History Amlodipine [Norvasc] 10 mg PO DAILY 12/11/16 01/07/17 History FLUoxetine [Prozac] 30 mg PO DAILY 12/11/16 01/07/17 History Triamterene/Hydrochlorothiazid 1 cap PO DAILY 12/11/16 01/07/17 History [Triamterene-Hctz 37.5-25 mg Tb] Atorvastatin [Lipitor] 1 tab PO HS 01/07/17 01/07/17 History Clopidogrel [Plavix] 1 tab PO DAILY 01/07/17 01/07/17 History Allergies Allergy/AdvReac Type Severity Reaction Status Date / Time aspirin Allergy Intermediate Tinnitus Verified 01/07/17 20:55 latex Allergy Intermediate Rash Verified 01/08/17 05:23 levofloxacin Allergy Intermediate Verified 11/04/16 09:54 Penicillins Allergy Unknown Verified 01/07/17 20:52 Results IRU - Labs Labs: Reviewed extensive outside records from [facility]. Exam Vital Signs: Temperature 98.4 F 01/08/17 08:00 Pulse Rate 61 01/08/17 08:00 Respiratory Rate 18 01/08/17 08:00 Blood Pressure 167/79 H 01/08/17 08:00 Pulse Oximetry 98 01/08/17 08:00 Telemetry Rhythm: Sinus Rhythm Height/Weight/BMI: Height 1.57 m Weight 77.1 kg Body Mass Index 31.1 - Constitutional Present: no acute distress, obese, cooperative - Routine HEENT Exam Head: Present: normocephalic, atraumatic. Absent: cushingoid faces Eye: Absent: EOMI (left eye may be somewhat deviated to her left side.), conjunctival icterus, scleral injection ENT: Present: mucous membranes moist - Routine Neck Exam Present: supple, full ROM - Routine Respiratory Exam Present: CTA bilaterally. Absent: accessory muscle use, dyspnea, decreased breath sounds, prolonged expiratory phase, wheezes, crackles, distant breath sounds - Routine Cardiovascular Exam Present: RRR, S1, S2, murmur (grade 2-3/6 left sternal border. No gallop.) - Routine Abdominal Exam Present: soft, normoactive bowel sounds, non distended, non tender. Absent: tenderness - Routine Extremities Exam Present: no edema. Absent: cyanosis - Routine Skin Exam Present: intact, dry. Absent: erythema - Routine Neurological Exam Present: alert, oriented X3, motor deficit (fine motor movement markedly reduced right hand. Right arm strength reduced on flexion and extension.), facial asymmetry. Absent: CN II-XII intact (mild right facial droop noted. Some slurred speech.), normal speech, tremors - Routine Psychiatric Exam Present: normal affect, normal thought process, cooperative, depressed Sepsis Assessment - Evaluation Sepsis screening result: No Definite Risk IRU A/P (1) Left pontine CVA Current visit: Yes Status: Acute She has experienced a recent left pontine CVA, ischemic. This has resulted in slurred speech, diplopia, dysphagia and right-sided weakness. She will require intensive individualized occupational and physical therapy as well as medical monitoring. (2) DM type 2 (diabetes mellitus, type 2) Qualifiers: Diabetes mellitus complication status: without complication Diabetes mellitus salvage determiner insulin use: without salvage determiner use Qualified Code(s): E11.9 - Type 2 diabetes mellitus without complications Current visit: Yes Status: Chronic She is at risk for hypoglycemia in view of her reduced oral intake and recent CVA. At home she does check her sugars twice daily and she appears to be fairly well-controlled chronically prior to the stroke. This will require medical management and active monitoring. (3) Knee osteomyelits, right Current visit: Yes Status: Chronic (4) Status post total right knee replacement Current visit: Yes Status: Acute She is status post right total knee replacement. States that the knee is stiff. She would like to see Dr. Lainez. This is the affected side from her stroke as well. (5) Benign essential hypertension Current visit: Yes Status: Chronic She has a risk for hypertension or hypotension in view of the recent CVA. We will monitor her blood pressures carefully. (6) Mixed hyperlipidemia Current visit: Yes Status: Chronic She was on atorvastatin. We will monitor for side effects. Her LDL was 125. Target would be 70 or less in view of the CVA and hypertension. DVT Prophylaxis: SCD's, Lovenox Resuscitation Status: Do Not Resuscitate - Course Hospital Course: Josiah Gonzalez MD: - Interventions to Obtain Goals PT Treatment Plan: Balance/Proprioception, Functional Activities, Gait Training , Patient/Family Education, Therapeutic Exercise Goals Progress/Modifications: It is anticipated the patient will be able to return to her home with modified independent functioning. We will involve speech therapy, occupational therapy and physical therapy as well as intensive medical management for several medical conditions.
--- NOTE | 2017-01-08 11:28 | IRU 24Hr Post Admit Eval ---
24 Hr Post Admission Physical - Relevant Changes Relevant Changes: No Reviewed: I have reviewed the patient's information and concur with the finding and results of the pre-admission screen. Certification: I certify the patient for rehabilitation. - Patient Condition (1) Left pontine CVA Status: Acute Code(s): I63.50 - Cerebral infarction due to unspecified occlusion or stenosis of unspecified cerebral artery Classification: Present on IRF Admission, IRF Tx That Should Address Diagnosis, Diagnosis Requiring Medical Follow Up (2) DM type 2 (diabetes mellitus, type 2) Status: Chronic Qualifiers: Diabetes mellitus complication status: without complication Diabetes mellitus longterm insulin use: without longterm use Qualified Code(s): E11.9 - Type 2 diabetes mellitus without complications Code(s): E11.9 - Type 2 diabetes mellitus without complications Classification: Present on IRF Admission, IRF Tx That Should Address Diagnosis, Diagnosis Requiring Medical Follow Up (3) Knee osteomyelits, right Status: Chronic Code(s): M86.9 - Osteomyelitis, unspecified Classification: Present on IRF Admission, IRF Tx That Should Address Diagnosis, Complications Since IRF Admission (4) Status post total right knee replacement Status: Acute Code(s): Z96.651 - Presence of right artificial knee joint Classification: Present on IRF Admission, Diagnosis Requiring Medical Follow Up , Other Contributing Factor (5) Benign essential hypertension Status: Chronic Code(s): I10 - Essential (primary) hypertension Classification: Present on IRF Admission, Diagnosis Requiring Medical Follow Up (6) Mixed hyperlipidemia Status: Chronic Code(s): E78.2 - Mixed hyperlipidemia Classification: Present on IRF Admission, Diagnosis Requiring Medical Follow Up - Prior Functional Status Lives With: Alone Residence Type: Apartment/Private Home Assitive Devices: Front Wheeled Walker Prior Functional Status: Indep. at home or school - Current Functional Status Failed Alternative Therapy: Arrived from Acute Care Patient Requirements: The patient requires oversight by rehabilitation physician to manage their rehabilitation treatment plan and multidisciplinary approach to care that can only be provided in an IRF and requires a multidisciplinary approach to care, provided by professional PTs, OTs, STs, dieticians, RTs, rehabilitation nurses and is not available in lesser levels of care. Limitiations Req: Mobility Impairment, ADL Impairment Speech Therapy Minutes: 30 Physical Therapy Minutes: 90 Occupational Therapy Minutes: 90 Therapy: The patient is to receive therapy at least [address] Treatment Plan: Swallow Retraining/Exercises, Swallow Precautions, Modified Diet ST Treatment Plan Frequency: Five Times Per Week ROM Deficit: Right Lower Extremity - Complications/Comorbidities Barriers to Discharge: Weakness, Endurance, Pain Control, Medical Limitation - Plan to Avoid Complications Plan to Avoid Complications: The patient cannot receive this care in a lesser intensive setting such as [facility] or Outpatient Therapy due to the patient requiring the following : Recent CVA requiring close neurologic monitoring. Her blood sugars and blood pressures need to be monitored carefully. .
--- NOTE | 2017-01-08 11:30 | IRU Plan of Care ---
IRU Overall Plan of Care - Date Date: 01/08/17 - Patient Impairments (1) Left pontine CVA Code(s): I63.50 - Cerebral infarction due to unspecified occlusion or stenosis of unspecified cerebral artery Status: Acute Classification: Present on IRF Admission, IRF Tx That Should Address Diagnosis, Diagnosis Requiring Medical Follow Up (2) DM type 2 (diabetes mellitus, type 2) Qualifiers: Diabetes mellitus complication status: without complication Diabetes mellitus detention insulin use: without joint terminal attack controller use Qualified Code(s): E11.9 - Type 2 diabetes mellitus without complications Code(s): E11.9 - Type 2 diabetes mellitus without complications Status: Chronic Classification: Present on IRF Admission, IRF Tx That Should Address Diagnosis, Diagnosis Requiring Medical Follow Up (3) Knee osteomyelits, right Code(s): M86.9 - Osteomyelitis, unspecified Status: Chronic Classification: Present on IRF Admission, IRF Tx That Should Address Diagnosis, Complications Since IRF Admission (4) Status post total right knee replacement Code(s): Z96.651 - Presence of right artificial knee joint Status: Acute Classification: Present on IRF Admission, Diagnosis Requiring Medical Follow Up , Other Contributing Factor (5) Benign essential hypertension Code(s): I10 - Essential (primary) hypertension Status: Chronic Classification: Present on IRF Admission, Diagnosis Requiring Medical Follow Up (6) Mixed hyperlipidemia Code(s): E78.2 - Mixed hyperlipidemia Status: Chronic Classification: Present on IRF Admission, Diagnosis Requiring Medical Follow Up - Relevant Changes Relevant Changes: No Reviewed: I have reviewed the patient's information and concur with the finding and results of the pre-admission screen. Certification: I certify the patient for rehabilitation. - Medical Prognosis Medical Prognosis: Good Vital Signs: Last Vital Signs Temp 98.4 F 01/08/17 08:00 Pulse 61 01/08/17 08:00 Resp 18 01/08/17 08:00 BP 167/79 H 01/08/17 08:00 Pulse Ox 98 01/08/17 08:00 - Anticipated Interventions Anticipated Interventions: The patient requires inpatient IRF care for PT, OT, and/or ST for residuals remaining from recent left pontine ischemic stroke resulting in muscular weakness and strength deficits. ROM Deficit: Right Lower Extremity Strength Deficits: Right Upper Extremity, Right Lower Extremity - FIM Ambulation Distance: 74 Toileting Adaptive Equipment: Grab Bars Number of Continent Voids: 1 - Current Functional Status Failed Alternative Therapy: Arrived from Acute Care Patient Requires: The patient requires oversight by rehabilitation physician to manage their rehabilitation treatment plan and multidisciplinary approach to care that can only be provided in an IRF and requires a multidisciplinary approach to care, provided by professional PTs, OTs, STs, dieticians, RTs, rehabilitation nurses and is not available in lesser levels of care. Speech-Language Pathology Minutes: 30 Physical Therapy Minutes: 90 Occupational Therapy Minutes: 90 Therapy: The patient is to receive therapy at least [address] Treatment Plan: Swallow Retraining/Exercises, Swallow Precautions, Modified Diet ST Treatment Plan Frequency: Five Times Per Week - Anticipated LOS/Outcomes Anticipated Functional Outcome: It is anticipated the patient will be able to return home to modified independent functioning Anticipated Length of Stay: 14 Anticipated DC Destination: Home, Self Care, Home Health Service Home Safety Plan: The patient will be provided with the development of a Home Safety Plan for return to a home or home-like environment and and to ensure safety post discharge. - Plan to Avoid Complications Barriers to Attaining Goals: Weakness, Endurance, Medical Limitation Plan to Avoid Complications: The patient cannot receive this care in a lesser intensive setting such as [facility] or Outpatient Therapy due to the patient requiring the following : Patient requires close 24 rehabilitation nursing monitoring for her recent neurologic status change (stroke). In addition she requires close monitoring of blood pressures and blood sugars in this setting. Her nutritional status is also at risk. .
[2017-01-08] MEDS: MECLIZINE 12.5 MG TABLET PO SCH ×2 (14:39→21:53)
[2017-01-08] MEDS: ENOXAPARIN 40 MG/0.4 ML INJECTION SQ SCH (14:39)
--- NOTE | 2017-01-08 17:14 | Consult Note ---
<Jessica Dominguez - Last Filed: 01/08/17 17:07> Consult Information - Data of Consult Consult date: 01/08/17 Requesting Physician: Josiah Gonzalez MD Primary Care Provider: Enedelia Basurto, - Consult Narrative Reason for consult: Medical mgt post-stroke History of present illness: Zulay Ge is a 72-year-old woman who had been living at home recovering quite well from a right total knee replacement by Dr. Lainez on 12/15/16. However, she describes dizziness, seeing stars and seeing "black" on 01/03/17 - she was admitted to [facility] with an acute ischemic stroke to the left anterior lynda. She had right-sided partial hemiparesis. CT was negative for hemorrhage; carotid ultrasound was negative for hemodynamically significant stenosis. She also had an echocardiogram with an EF of 55-65%. Lipid panel was assessed; statin was increased. Norvasc was held initially for permissive HTN. She was started on Plavix. She was evaluated by speech therapy, who recommended dysphagia diet. Anemia workup was done - iron, B12, folate normal. She was discharged from [place] and admitted to [place] [facility] on 01/07/17. She was seen in the afternoon of 01/08/17 after waking up from a short nap. She is noting improvement in nearly all of her stroke symptoms. She feels like she is gaining better fine motor control in her right hand, though still describes a little bit of tingling to her fingertips. She has numbness to her right toes, but it used to be. Her entire foot. She still has difficulty with right leg weakness and ambulation. Her swallowing is stronger, and she is no longer slurring her words. She still complains of double vision in her right eye when she looks towards her nose. 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 She states that since she's been started on some new medicine. She is having increased dizziness and weakness. That is her primary complaint. She also states that she has in the past experienced intermittent and fleeting heart fluttering, but denies any chest pain or difficulty breathing. She states that she was coughing , but isn't coughing much anymore. She added that part of the reason she is coughing was to help her clear secretions. She denies any fevers. No abdominal pain or GI complaints, though was slightly uncomfortable with constipation up until today (had a small bowel movement after drinking prune juice). She states she is urinating more frequently because of a diuretic that has recently been started. She states that her right knee and right calf occasionally cramp up. She still has fluid in her right knee postoperatively. 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 Recent right total knee replacement 12/15/16. Transthoracic echocardiogram 12/2016 EF 55-65%, some dilatation of left atrium. Carotid ultrasound 12/2016 mild atherosclerotic plaque in both carotids without hemodynamically significant stenosis Family History: Father - HTN (hypertension); PA Mother - Diabetes; Osteoarthritis - Social History Smoking status: Former smoker (used to smoke "socially") Substance use type: does not use Alcohol intake frequency: does not drink Current occupational status: retired Current residence: Apartment/Private Home Review of Systems Comprehensive ROS: completed and no additional positive findings except those as stated - Constitutional Constitutional: Present: headache(s) - EENMT Balance: Present: other (has had a couple of falls recently.) Mouth/Throat: Present: as per HPI, changes in swallowing - Cardiovascular Cardiovascular: Present: palpitations - Respiratory Respiratory: Present: cough - Gastrointestinal Gastrointestinal: Present: as per HPI, constipation - Musculoskeletal Musculoskeletal: Present: as per HPI, abnormal gait, muscle cramps, muscle weakness - Neurological Neurological: Present: abnormal gait, dizziness, frequent falls, numbness, paresthesias, restless legs (right leg - since sx), weakness - Psychiatric Psychiatric: Present: anxiety, depression - Hematologic/Lymphatic Hematologic/Lymphatic: Present: easy bruising Medications Home Medications Medication Instructions Recorded Confirmed Type Levothyroxine Sodium 50 mcg PO ACB #0 12/01/14 01/07/17 History glipiZIDE [Glipizide] 10 mg PO BIDWM #0 04/21/15 01/07/17 History Lisinopril [Prinivil] 40 mg PO DAILY 11/05/16 01/07/17 History clonazePAM [Clonazepam] 0.5 mg PO DAILY 11/05/16 01/07/17 History Amlodipine [Norvasc] 10 mg PO DAILY 12/11/16 01/07/17 History FLUoxetine [Prozac] 30 mg PO DAILY 12/11/16 01/07/17 History Triamterene/Hydrochlorothiazid 1 cap PO DAILY 12/11/16 01/07/17 History [Triamterene-Hctz 37.5-25 mg Tb] Atorvastatin [Lipitor] 1 tab PO HS 01/07/17 01/07/17 History Clopidogrel [Plavix] 1 tab PO DAILY 01/07/17 01/07/17 History Allergies Allergy/AdvReac Type Severity Reaction Status Date / Time aspirin Allergy Intermediate Tinnitus Verified 01/07/17 20:55 latex Allergy Intermediate Rash Verified 01/08/17 05:23 levofloxacin Allergy Intermediate Verified 11/04/16 09:54 Penicillins Allergy Unknown Verified 01/07/17 20:52 Exam Vital Signs: Temperature 98.4 F 01/08/17 08:00 Pulse Rate 61 01/08/17 08:00 Respiratory Rate 18 01/08/17 08:00 Blood Pressure 167/79 H 01/08/17 08:00 Pulse Oximetry 98 01/08/17 08:00 Height/Weight/BMI: Height 1.57 m Weight 77.1 kg Body Mass Index 31.1 - Constitutional Present: no acute distress, well nourished, well developed - Routine HEENT Exam Head: Present: normocephalic Eye: Present: EOMI, PERRL ENT: Present: mucous membranes moist, dentition normal - Routine Neck Exam Present: supple - Routine Respiratory Exam Present: CTA bilaterally - Routine Cardiovascular Exam Present: RRR, S1, S2 - Routine Abdominal Exam Present: soft, normoactive bowel sounds, non distended. Absent: tenderness - Routine Extremities Exam Present: pulses intact, normal capillary refill, joint swelling (right knee - healing incision from TKA) - Routine Back/Spine/Pelvis Exam Back/Spine: Present: full ROM - Routine Skin Exam Present: intact, dry, warm - Routine Neurological Exam Present: alert, oriented X3, CN II-XII intact, motor deficit (decreased fine motor to right hand; decreased strength right leg), normal speech (no slurring during this assessment) - Routine Psychiatric Exam Present: normal affect, normal thought process, cooperative Results - Labs CBC & Chem 7: 01/08/17 05:32 01/08/17 05:32 Assessment and Plan (1) Left pontine CVA Current visit: Yes Status: Acute Resuscitation Status: Do Not Resuscitate Assessment and Plan: ASSESSMENT Ischemic stroke to the left anterior lynda on 01/03/17 Rt total knee replacement 12/15/16 Hypokalemia - POA and also noted during hospitalization at [place] Anemia of chronic disease - iron workup negative at [place] Type 2 diabetes - A1c 6.3% 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 Continue meclizine for dizziness. PT/OT orders per Dr. Gonzalez. Recommend reassessment by speech given her reported improvement in speech and swallow ability. KDur for hypokalemia. HTN - Norvasc 10 mg; Lisinopril 40 mg; Maxzide Reyes records reviewed - I asked nurses to verify home meds so we know which medications she will need Rx at time of discharge. Pneumococcal vaccine given. Hospital Course Summary Disclaimer: The visit summary below is not to be considered part of the above Progress Note. 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 Continue meclizine for dizziness. PT/OT orders per Dr. Gonzalez. Recommend reassessment by speech given her reported improvement in speech and swallow ability. KDur for hypokalemia. HTN - Norvasc 10 mg; Lisinopril 40 mg; Maxzide Reyes records reviewed - I asked nurses to verify home meds so we know which medications she will need Rx at time of discharge. Pneumococcal vaccine given. Sepsis Assessment - Evaluation Sepsis screening result: No Definite Risk <Mike Borja - Last Filed: 01/08/17 19:12> Consult Information - Data of Consult Requesting Physician: Josiah Gonzalez MD Primary Care Provider: Enedelia Basurto DO [facility] Patient Stated Medical History Hypertension Yes Sleep Apnea No Diabetes Mellitus Type 2 Yes Constipation Yes Gastroesophageal Reflux Yes Disease Other GI Yes: IBS, constipation Hx Incontinence Yes: Used to leak after hysterectomy Osteoarthritis Yes Anesthesia Reactions Yes: N/V Depression Yes: anxiety Uterine Prolapse Yes Clinic Medical History (Last Reviewed 11/04/16 @ 10:23 by Lucho Lainez MD) Hernández's palsy (Chronic Medical) Osteoarthritis (Chronic Medical) Depression (Chronic Medical) Anxiety (Chronic Medical) Thyroid disease (Chronic Medical) High cholesterol (Chronic Medical) HTN (hypertension) (Chronic Medical) Family History: Family History (Last Reviewed 11/04/16 @ 10:23 by Lucho Lainez MD) Father HTN (hypertension) Heart attack Mother Diabetes Osteoarthritis Exam Vital Signs: Temperature 98.4 F 01/08/17 08:00 Pulse Rate 61 01/08/17 08:00 Respiratory Rate 18 01/08/17 08:00 Blood Pressure 167/79 H 01/08/17 08:00 Pulse Oximetry 98 01/08/17 08:00 Height/Weight/BMI: Height 1.57 m Weight 77.1 kg Body Mass Index 31.1 Results - Labs CBC & Chem 7: 01/08/17 05:32 01/08/17 05:32 Assessment and Plan (1) Left pontine CVA Current visit: Yes Status: Acute Assessment and Plan: ASSESSMENT Ischemic stroke to the left anterior lynda on 01/03/17 Right hemiparesis secondary to CVA Rt total knee replacement 12/15/16 Hypokalemia - POA and also noted during hospitalization at [place] Anemia of chronic disease - iron workup negative at [place] Type 2 diabetes - A1c 6.3% 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 Chart reviewed. Case discussed with my FRONT MAKER. Above car plan developed with my supervision; agree with above. Admitted to IRU for therapy following CVA with right hemiparesis. Has made good gains with mobility of right hand, but not to prior level of function. Right knee still stiff and painful from replacement in November. Bowels slow. Breathing well-not SOA or congested. No chest pain. Eating well. Tolerating therapy and really working hard for recovery. Lungs: clear bilaterally CV: regular MSE: awake alert appropriate Plan: Agree with admission of patient to IRU to maximize functional status. Continue with medications outlined from [facility]. Encourage therapy. Monitor BP with current medications. Medically stable for IRU floor activity. Hospital Course Summary Disclaimer: The visit summary below is not to be considered part of the above Progress Note.
[2017-01-08] MEDS: ATORVASTATIN 40 MG TABLET PO SCH (21:53)
[2017-01-09] MEDS: HYDROCODONE/APAP 5mg/325mg TABLET PO PRN ×3 (03:17→17:53)
[2017-01-09] MEDS: LEVOTHYROXINE 50 MCG TABLET PO SCH (05:59)
[2017-01-09] MEDS: FLUoxetine 10 MG CAPSULE PO SCH (08:55)
[2017-01-09] MEDS: AMLODIPINE 10 MG TABLET PO SCH (08:55)
[2017-01-09] MEDS: CLOPIDOGREL 75 MG TABLET PO SCH (08:55)
[2017-01-09] MEDS: TRIAMTERENE/HCTZ 37.5 MG-25 MG TABLET PO SCH (08:55)
[2017-01-09] MEDS: LISINOPRIL 40 MG TABLET PO SCH (08:55)
[2017-01-09] MEDS: ClonazePAM 0.5 MG TABLET PO SCH (08:55)
[2017-01-09] MEDS: MECLIZINE 12.5 MG TABLET PO SCH ×3 (08:56→21:08)
[2017-01-09] MEDS: GlipiZIDE 5 MG TABLET PO SCH ×2 (08:56→17:50)
[2017-01-09] MEDS: ENOXAPARIN 40 MG/0.4 ML INJECTION SQ SCH (08:56)
--- NOTE | 2017-01-09 10:29 | Progress Note ---
<AngelicaJessica D - Last Filed: 01/09/17 10:25> Subjective: Patient was seen at breakfast table to discuss pain. She states that she is having a burning sensation to her right hip that wraps around into her groin. She notes a history of sciatica but it's been worse over the last couple of days. She's tried Neurontin in the past (300 mg) but states it made her very drowsy and gain weight, but she wants to try it at a lower dose. She also reports that Flexeril has been helpful - again at lower dose and only at night because it makes her sleepy. She wants to be able to work well with therapy. She is seeing better fine motor control of her right hand today. Otherwise no dyspnea, chest pain, abdominal pain. She is still constipated and plans on drinking warm prune juice later, which works well for her. Objective Vital signs: Temperature 98.1 F 01/09/17 08:00 Pulse Rate 68 01/09/17 08:00 Respiratory Rate 18 01/09/17 08:00 Blood Pressure 144/77 H 01/09/17 08:00 Pulse Oximetry 98 01/09/17 08:00 Height/Weight/BMI: Height 1.57 m Weight 77.1 kg Body Mass Index 31.1 - Constitutional Present: no acute distress, well nourished, well developed - Routine HEENT Exam Head: Present: normocephalic ENT: Present: mucous membranes moist - Routine Respiratory Exam Present: CTA bilaterally - Routine Cardiovascular Exam Present: RRR, S1, S2, murmur (3/6) - Routine Abdominal Exam Present: soft, non distended, non tender. Absent: normoactive bowel sounds ( slightly hypoactive) - Routine Extremities Exam Present: pulses intact, normal capillary refill - Routine Musculoskeletal Exam Musculoskeletal: Present: joint swelling (right knee), limited range of motion ( right leg especially) - Routine Skin Exam Present: intact, dry, warm - Routine Neurological Exam Present: alert, oriented X3, motor deficit (right UE and LE), normal speech - Routine Psychiatric Exam Present: normal affect, normal thought process, cooperative Results - Labs CBC & Chem 7: 01/08/17 05:32 01/08/17 05:32 Assessment and Plan (1) Left pontine CVA Current visit: Yes Status: Acute Resuscitation Status: Do Not Resuscitate Assessment and Plan: ASSESSMENT Ischemic stroke to the left anterior lynda on 01/03/17 Right hemiparesis secondary to CVA Rt total knee replacement 12/15/16 Hypokalemia - POA and also noted during hospitalization at [place] Anemia of chronic disease - iron workup negative at [place] Type 2 diabetes - A1c 6.3% 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 Constipation - prefers to try prune juice but will add PRN bowel aids in case she needs them. Repeat BMP in am to follow up on hypokalemia. BP moderately elevated - permissive HTN in setting of acute stroke. Continue with current antiHTN. BGM - good control. Sepsis Assessment - Evaluation Sepsis screening result: No Definite Risk Hospital Course Summary Disclaimer: The visit summary below is not to be considered part of the above Progress Note. 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 Continue meclizine for dizziness. PT/OT orders per Dr. Gonzalez. Recommend reassessment by speech given her reported improvement in speech and swallow ability. KDur for hypokalemia. HTN - Norvasc 10 mg; Lisinopril 40 mg; Maxzide Reyes records reviewed - I asked nurses to verify home meds so we know which medications she will need Rx at time of discharge. Pneumococcal vaccine given. 01/09/17 Add Neurontin 100 mg and Flexeril 5 mg HS to help with sciatic pain. Constipation - prefers to try prune juice but will add PRN bowel aids in case she needs them. BP moderately elevated - permissive HTN in setting of acute stroke. Continue with current antiHTN. BGM - good control. <Mike Borja D - Last Filed: 01/09/17 14:10> Objective Vital signs: Temperature 98.1 F 01/09/17 08:00 Pulse Rate 68 01/09/17 08:00 Respiratory Rate 18 01/09/17 08:00 Blood Pressure 144/77 H 01/09/17 08:00 Pulse Oximetry 98 01/09/17 08:00 Height/Weight/BMI: Height 1.57 m Weight 77.1 kg Body Mass Index 31.1 Results - Labs CBC & Chem 7: 01/08/17 05:32 01/08/17 05:32 Assessment and Plan (1) Left pontine CVA Current visit: Yes Status: Acute Assessment and Plan: ASSESSMENT Ischemic stroke to the left anterior lynda on 01/03/17 Right hemiparesis secondary to CVA Rt total knee replacement 12/15/16 Hypokalemia - POA and also noted during hospitalization at [place] Anemia of chronic disease - iron workup negative at [place] Type 2 diabetes - A1c 6.3% 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 Chart reviewed. Case discussed with my BEHAVIORAL MODIFICATION ASSISTANT. Above care plan developed with my supervision; agree with above. Doing okay other than right leg problems. Increase sciatic pain. Notes discomfort to hip and ankle with movements. Worries something happened to theses joints when she fell. Was having significant problems with right hip/ ankle prior to right knee surgery-was hopeful improvement of function of right knee would improve her hip/ankle (with recent stroke, really hasn't fully rehabbed her right knee). Is seeing improvement of function/control on right side-not to baseline, but slow gains made--this is very encouraging for her. Breathing well. Stools still not moving. Lungs: clear CV: regular AB: soft nt/nd +BS MSE: awake alert appropriate; thoughts linear Plan: Will check xrays of hip and ankle on right. Continue to work on bowel function. Continue therapy; encourage patient to continue to do exercises even when not in therapy sessions. Neurontin and Flexeril added to help her sciatic pain. Monitor lab. Medically stable to IRU floor care. Hospital Course Summary Disclaimer: The visit summary below is not to be considered part of the above Progress Note.
[2017-01-09] MEDS ORDERED: SENNA + DOCUSATE TABLET PO PRN (10:32)
[2017-01-09] MEDS ORDERED: POLYETHYL GLYCOL 3350 17gm PACKET PO PRN (10:32)
[2017-01-09] MEDS ORDERED: FALL RISK - PHARMACY CONSULT MC PRN (10:45)
[2017-01-09] MEDS ORDERED: CALCIUM CARBONATE Chewable 500mg TABLET PO PRN (17:58)
[2017-01-09] MEDS: MAG-AL + SIM ORAL LIQUID 30ml PO PRN (18:16)
[2017-01-09] MEDS: ATORVASTATIN 40 MG TABLET PO SCH (21:08)
[2017-01-09] MEDS: GABAPENTIN 100 MG CAPSULE PO SCH (21:08)
[2017-01-09] MEDS: CYCLOBENZAPRINE 5 MG TABLET PO PRN (21:11)
[2017-01-10] MEDS: HYDROCODONE/APAP 5mg/325mg TABLET PO PRN ×3 (04:03→15:58)
[2017-01-10] MEDS: LEVOTHYROXINE 50 MCG TABLET PO SCH (06:30)
[2017-01-10] MEDS: TRIAMTERENE/HCTZ 37.5 MG-25 MG TABLET PO SCH (09:10)
[2017-01-10] MEDS: GlipiZIDE 5 MG TABLET PO SCH ×2 (09:10→17:33)
[2017-01-10] MEDS: AMLODIPINE 10 MG TABLET PO SCH (09:10)
[2017-01-10] MEDS: LISINOPRIL 40 MG TABLET PO SCH (09:10)
[2017-01-10] MEDS: CLOPIDOGREL 75 MG TABLET PO SCH (09:10)
[2017-01-10] MEDS: FLUoxetine 10 MG CAPSULE PO SCH (09:10)
[2017-01-10] MEDS: MECLIZINE 12.5 MG TABLET PO SCH ×3 (09:11→20:34)
[2017-01-10] MEDS: ClonazePAM 0.5 MG TABLET PO SCH (09:11)
[2017-01-10] MEDS: ENOXAPARIN 40 MG/0.4 ML INJECTION SQ SCH (09:11)
--- NOTE | 2017-01-10 11:40 | XRay Report ---
Indication: Right hip pain PROCEDURE: XR hip RT min 2V: Encounter: Initial Comparison: None Findings: There is no acute fracture, dislocation or malalignment identified. Mild joint space narrowing and tiny osteophytes. Impression: No acute osseous abnormality. .
--- NOTE | 2017-01-10 11:41 | XRay Report ---
Indication: right ankle pain PROCEDURE: XR ankle RT min 3V: Encounter: Initial Comparison: None Findings: Artifact from socks obscuring fine bony detail. Suggestion of a possible linear lucency in the tip of the fibula seen on the AP view only. No additional area concerning for acute fracture. No dislocation. Impression: Limited exam due to artifact with a possible fracture versus artifact in the distal fibula. Recommend repeat exam with overlying material removed. .
--- NOTE | 2017-01-10 18:18 | XRay Report ---
Indication: Pain PROCEDURE: XR ankle RT min 3V: Encounter: Initial Comparison: January 09, 2017 Findings: There is no acute fracture, dislocation or malalignment identified. Prior possible lucency in the fibula is not confirmed on this exam. Lucency in the medial talar dome consistent with an osteochondral lesion. Impression: No acute osseous abnormality. .
[2017-01-10] MEDS: MAG-AL + SIM ORAL LIQUID 30ml PO PRN (19:41)
[2017-01-10] MEDS: CYCLOBENZAPRINE 5 MG TABLET PO PRN (20:34)
[2017-01-10] MEDS: RANITIDINE 150 MG TABLET PO SCH (20:34)
[2017-01-10] MEDS: GABAPENTIN 100 MG CAPSULE PO SCH (20:34)
[2017-01-10] MEDS: ATORVASTATIN 40 MG TABLET PO SCH (20:34)
[2017-01-10] MEDS ORDERED: RANITIDINE 150 MG/10 ML PO SCH (21:00)
[2017-01-11] MEDS: HYDROCODONE/APAP 5mg/325mg TABLET PO PRN ×4 (01:35→20:47)
[2017-01-11] MEDS: LEVOTHYROXINE 50 MCG TABLET PO SCH (06:05)
[2017-01-11] MEDS: ClonazePAM 0.5 MG TABLET PO SCH ×2 (09:08→20:47)
[2017-01-11] MEDS: FLUoxetine 10 MG CAPSULE PO SCH (09:08)
[2017-01-11] MEDS: TRIAMTERENE/HCTZ 37.5 MG-25 MG TABLET PO SCH (09:09)
[2017-01-11] MEDS: AMLODIPINE 10 MG TABLET PO SCH (09:09)
[2017-01-11] MEDS: LISINOPRIL 40 MG TABLET PO SCH (09:09)
[2017-01-11] MEDS: ENOXAPARIN 40 MG/0.4 ML INJECTION SQ SCH (09:09)
[2017-01-11] MEDS: GlipiZIDE 5 MG TABLET PO SCH ×2 (09:09→17:54)
[2017-01-11] MEDS: MECLIZINE 12.5 MG TABLET PO SCH ×3 (09:10→20:48)
[2017-01-11] MEDS: CLOPIDOGREL 75 MG TABLET PO SCH (09:10)
--- NOTE | 2017-01-11 09:40 | Progress Note ---
Subjective: Zulay is seen this morning during breakfast. She is very emotional and tearful as she is frustrated that she cannot move her right side. She is angry that the CVA happened to her. She reports anxiety and worry regarding going home independently and caring for herself. Objective Vital signs: Temperature 98.4 F 01/11/17 08:00 Pulse Rate 58 L 01/11/17 08:00 Respiratory Rate 18 01/11/17 08:00 Blood Pressure 156/69 H 01/11/17 08:00 Pulse Oximetry 96 01/11/17 08:00 Height/Weight/BMI: Height 1.57 m Weight 77.1 kg Body Mass Index 31.1 - Constitutional Present: no acute distress, well nourished, well developed - Routine HEENT Exam Eye: Present: EOMI ENT: Present: mucous membranes moist, dentition normal - Routine Respiratory Exam Present: CTA bilaterally. Absent: wheezes - Routine Cardiovascular Exam Present: RRR, S1, S2. Absent: murmur - Routine Abdominal Exam Present: soft, normoactive bowel sounds, non distended. Absent: tenderness - Routine Extremities Exam Present: full ROM, normal capillary refill - Routine Back/Spine/Pelvis Exam Back/Spine: Present: full ROM - Routine Skin Exam Present: intact, dry, warm - Routine Neurological Exam Present: alert, oriented X3, CN II-XII intact - Routine Lymphatic Exam Lymphatic: Absent: adenopathy - Routine Psychiatric Exam Present: cooperative, depressed, anxious Results - Labs CBC & Chem 7: 01/08/17 05:32 01/10/17 03:56 Assessment and Plan (1) Left pontine CVA Current visit: Yes Status: Acute Assessment and Plan: ASSESSMENT Ischemic stroke to the left anterior lynda on 01/03/17 Right hemiparesis secondary to CVA Rt total knee replacement 12/15/16 Hypokalemia - POA and also noted during hospitalization at [facility] Anemia of chronic disease - iron workup negative at [facility] Type 2 diabetes - A1c 6.3% 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 She was recently increased to Prozac 30 mg daily. She also uses Clonazepam 0.5 mg several times during the day and once at night. Will add the night dose to help with sleeping. Noted she was recently prescribed Ambien. Nursing staff calls following exam to reports she is now complaining of indigestion and shoulder pain. Obtain EKG and Troponin at this time. Continue with Flexeril and gabapentin for pain control Encouraged patient to work with PT/OT as she does noted improvements in right hand strength. Sepsis Assessment - Evaluation Sepsis screening result: No Definite Risk Hospital Course Summary Disclaimer: The visit summary below is not to be considered part of the above Progress Note. 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 Continue meclizine for dizziness. PT/OT orders per Dr. Gonzalez. Recommend reassessment by speech given her reported improvement in speech and swallow ability. KDur for hypokalemia. HTN - Norvasc 10 mg; Lisinopril 40 mg; Maxzide [facility] records reviewed - I asked nurses to verify home meds so we know which medications she will need Rx at time of discharge. Pneumococcal vaccine given. 01/09/17 Add Neurontin 100 mg and Flexeril 5 mg HS to help with sciatic pain. Constipation - prefers to try prune juice but will add PRN bowel aids in case she needs them. BP moderately elevated - permissive HTN in setting of acute stroke. Continue with current antiHTN. BGM - good control. 01/11/17 Reviewed external medication list. She was recently increased to Prozac 30 mg daily. She also uses Clonazepam 0.5 mg several times during the day and once at night. Will add the night dose to help with sleeping. Noted she was recently prescribed Ambien. Nursing staff calls following exam to reports she is now complaining of indigestion and shoulder pain. Obtain EKG and Troponin at this time. Continue with Flexeril and gabapentin for pain control Encouraged patient to work with PT/OT as she does noted improvements in right hand strength.
[2017-01-11] MEDS: MAG-AL + SIM ORAL LIQUID 30ml PO PRN ×2 (09:46→20:47)
--- NOTE | 2017-01-11 10:17 | IRU Progress Note ---
- Subjective/Serverity of Illness Luan was interviewed and the dining area. She was sitting by herself at the table. She is upset that she continues to have a lot of burning sciatica type of pain down her right leg. Right knee continues to hurt her since it was recently replaced. She states that she is unable to ambulate very far because of the knee pain. She would really like to be able to walk and get back home. She remains tearful and upset and anxious. I have reviewed therapy notes. She requires verbal cueing to stay on task. However she is progressing toward her goals. She denies any shortness of breath at present. She apparently has had some chest discomfort. Electrocardiogram was done and reviewed. This shows sinus mechanism and no acute changes this morning. Update on medical issues as follows: 1. Acute CVA Left Devante, ischemic with neg carotids and echo: She has recently been started on Plavix. No evidence of bleeding. No evidence of worsening neurologic status. 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 She is on several anti depressants. 2. DM II: She is on oral agents. Her blood sugars are reasonably well- controlled. 3. Hypertension: She is on oral agents for her hypertension. Her blood pressure is running a bit on the high side. This may be due to her anxiety. 4. Dysphagia: She has been evaluated and is followed by speech therapy. She has some weakness at the base of her tongue. However has minimal impairment otherwise. Per nursing, she has variable degrees of ability to swallow safely however. 5. Dizziness: She reports subacute to chronic "dizziness." Appears to be stable. 6. Depression: This appears to be a chronic issue for her. She is on antidepressants. As noted above, much of this may be pseudobulbar affect. Exam Vital Signs: Temperature 98.4 F 01/11/17 08:00 Pulse Rate 58 L 01/11/17 08:00 Respiratory Rate 18 01/11/17 08:00 Blood Pressure 156/69 H 01/11/17 08:00 Pulse Oximetry 96 01/11/17 08:00 Height/Weight/BMI: Height 1.57 m Weight 77.1 kg Body Mass Index 31.1 Comments: The patient is awake, alert and oriented and in no acute distress. However does complain of right hip and leg pain consistent with sciatica. Also she is tearful during interview. Pupils are equal. The neck is supple. Chest: Clear to auscultation bilaterally. Cor: RR with no gallop, click nor murmur Abd: soft with normo-active bowel sounds. There are no masses, no tenderness and no guarding. Extremities: No edema is noted. There is no cyanosis. Results IRU - Labs Labs: I reviewed the other progress notes as well as labs etc. Blood pressures are running a bit high. Sepsis Assessment - Evaluation Sepsis screening result: No Definite Risk IRU A/P (1) Left pontine CVA Current visit: Yes Status: Acute Patient's neurologic status appears to be stable. Her dysphagia is minimal. She is being seen by physical therapy, occupational therapy and speech therapy and these notes are reviewed. She is on Plavix. No evidence of bleeding. However she is obviously emotionally labile and likely this is related to pseudobulbar affect plus or minus her underlying depression. Consider the possibility of Nuedexta although questionable ability to afford this when she gets out. In addition we would have to decrease doses and eliminate some of the antidepressants. 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 Because of her intermittently poor oral intake however she is at risk for hypoglycemia. Currently these are stable. (3) Knee osteomyelits, right Current visit: Yes Status: Chronic (4) Status post total right knee replacement Current visit: Yes Status: Acute (5) Benign essential hypertension Current visit: Yes Status: Chronic Her blood pressures are running a bit on the high side. I will discuss with hospitalists and possibly increase her medication. (6) Mixed hyperlipidemia Current visit: Yes Status: Chronic (7) Sciatica of right side Current visit: Yes Status: Acute Complains of severe pain in the right low back and right hip down the right leg. She says this is consistent with sciatica and I would tend to agree with this. This did predate her stroke. DVT Prophylaxis: SCD's, Lovenox Resuscitation Status: Do Not Resuscitate - Course Hospital Course: Josiah Gonzalez MD: 01/11/17 10:21 Continues to progress with therapy. Dysphagia with minimal impairment. She is emotionally labile and anxious. 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 Considered use of Nuedexta but likely not able to afford it when she gets out. In addition we would have to cut back on current antidepressants. Continues to complain of right hip and low back pain and discomfort consistent with sciatica. Blood pressure a bit elevated. - Interventions to Obtain Goals PT Treatment Plan: Balance/Proprioception, Functional Activities, Gait Training , Patient/Family Education, Therapeutic Exercise OT Treatment Plan: ADL (Basic Care), Balance Training, IADL, Pt./Family Education, Ther. Exercise for ADL, UE Functional Training Goals Progress/Modifications: Time spent with patient and on floor reviewing data and documentin minutes Barriers to dismissal: Right hip and leg pain (sciatica), right knee pain ( recent total knee replacement), weakness on the right side, emotional lability. Medical decision-making: As noted above, her blood pressures running a bit high. I will discuss with the hospitalist and possibly increase her dose of medication. With regard to her emotional lability, she may benefit from Nuedexta but in my opinion this is not yet affordable. In addition we would have to stop her other antidepressants.
[2017-01-11] MEDS ORDERED: FALL RISK - PHARMACY CONSULT MC PRN (11:24)
[2017-01-11] MEDS: GABAPENTIN 100 MG CAPSULE PO SCH (20:47)
[2017-01-11] MEDS: RANITIDINE 150 MG TABLET PO SCH (20:47)
[2017-01-11] MEDS: ATORVASTATIN 40 MG TABLET PO SCH (20:48)
[2017-01-12] MEDS: HYDROCODONE/APAP 5mg/325mg TABLET PO PRN ×3 (03:28→12:45)
[2017-01-12] MEDS: LEVOTHYROXINE 50 MCG TABLET PO SCH (05:38)
[2017-01-12] MEDS: LISINOPRIL 40 MG TABLET PO SCH (08:42)
[2017-01-12] MEDS: TRIAMTERENE/HCTZ 37.5 MG-25 MG TABLET PO SCH (08:42)
[2017-01-12] MEDS: FLUoxetine 10 MG CAPSULE PO SCH (08:42)
[2017-01-12] MEDS: AMLODIPINE 10 MG TABLET PO SCH (08:43)
[2017-01-12] MEDS: GlipiZIDE 5 MG TABLET PO SCH ×2 (08:43→17:29)
[2017-01-12] MEDS: MECLIZINE 12.5 MG TABLET PO SCH ×3 (08:43→20:01)
[2017-01-12] MEDS: CLOPIDOGREL 75 MG TABLET PO SCH (08:43)
[2017-01-12] MEDS: ClonazePAM 0.5 MG TABLET PO SCH ×2 (08:43→20:01)
[2017-01-12] MEDS: ENOXAPARIN 40 MG/0.4 ML INJECTION SQ SCH (09:50)
[2017-01-12] MEDS ORDERED: AZITHROMYCIN 500 MG TABLET PO ONE (10:05)
--- NOTE | 2017-01-12 10:38 | IRU Progress Note ---
- Subjective/Serverity of Illness Luan continues to complain of significant pain in the right hip down the right leg. It feels heavy. Much of this may well be due to her stroke. Also had pre- existing sciatica she states. In addition, the right knee is hurting worse. There is more pain behind the right knee and into the right calf. The knee itself is more edematous and perhaps warm. However range of motion actually looks fairly good. While she is not able to fully extend the right knee, nevertheless when she bends that she moves fairly freely. I think this would argue against a local infection in the knee itself. She feels strongly that she has a sinus infection as characterized by blowing out discolored material from her nose. She states that an antibiotic obese helps and she would like a Z-Donnie. I told her that many of these are viral and that antibiotics may or may not be beneficial. However she virtually demands an antibiotic be given so we will give for this at this time. She denies any shortness of breath. Update on medical conditions as follows: 1. Acute CVA Left Devante, ischemic with neg carotids and echo: She has recently been started on Plavix. No evidence of bleeding. No evidence of worsening neurologic status. Appears to be stable at this time. 2. DM II: She is on oral agents. Her blood sugars are reasonably well- controlled. These look good. 3. Hypertension: She is on oral agents for her hypertension. Her BP is improved today compared to prior readings. 4. Dysphagia: She has been evaluated and is followed by speech therapy. She has some weakness at the base of her tongue. However has minimal impairment otherwise. Per nursing, she has variable degrees of ability to swallow safely however. 5. Dizziness: She reports subacute to chronic "dizziness." Appears to be stable. 6. Depression: This appears to be a chronic issue for her. She is on antidepressants. As noted above, much of this may be pseudobulbar affect. Exam Vital Signs: Temperature 98.1 F 01/12/17 08:00 Pulse Rate 61 01/12/17 08:00 Respiratory Rate 12 01/12/17 08:00 Blood Pressure 117/58 01/12/17 08:00 Pulse Oximetry 98 01/12/17 08:00 Height/Weight/BMI: Height 1.57 m Weight 77.1 kg Body Mass Index 31.1 Comments: The patient is awake, alert and oriented and in some pain from the right leg and knee. She is anxious. Pupils are equal. The neck is supple. Chest: Clear to auscultation bilaterally. Cor: RR with no gallop, click nor murmur Abd: soft with normo-active bowel sounds. There are no masses, no tenderness and no guarding. Extremities: The right knee is bending fairly well on flexion but unable to fully extend it. Her CVA has interfered with this process. The knee itself is indeed a bit warm and red. The knee is puffy. We will check a venous Doppler. Sepsis Assessment - Evaluation Sepsis screening result: No Definite Risk IRU A/P (1) Left pontine CVA Current visit: Yes Status: Acute Her neurologic status appears to be stable. 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 (3) Knee osteomyelits, right Current visit: Yes Status: Chronic (4) Status post total right knee replacement Current visit: Yes Status: Acute The knee does appear to be more warm and red and puffy today. We'll check a venous Doppler for completeness. However she is able to bend it reasonably well (although not able to fully extend it). This would argue against a primary knee joint infection at present. We will check a white count. (5) Benign essential hypertension Current visit: Yes Status: Chronic (6) Mixed hyperlipidemia Current visit: Yes Status: Chronic (7) Sciatica of right side Current visit: Yes Status: Acute She describes fairly typical sciatica on the right side. This predated her stroke although there is more heaviness and difficulty moving the right leg since the stroke obviously. Continue physical therapy. DVT Prophylaxis: SCD's, Lovenox Resuscitation Status: Do Not Resuscitate - Course Hospital Course: Josiah Gonzalez MD: 01/11/17 10:21 Continues to progress with therapy. Dysphagia with minimal impairment. She is emotionally labile and anxious. 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 Considered use of Nuedexta but likely not able to afford it when she gets out. In addition we would have to cut back on current antidepressants. Continues to complain of right hip and low back pain and discomfort consistent with sciatica. Blood pressure a bit elevated. 01/12/17 10:40 She would like an antibiotic for her sinuses. Advised to resume her may not be of benefit. We will try a Z-Donnie due to discolored drainage. Blood pressures are improved. Continues to be emotionally labile and anxious with probable pseudobulbar affect. We will check a venous Doppler due to more swelling and redness involving the right knee. We'll check a white count although she is able to bend the knee fairly well so that would argue against primary knee joint infection. May be more red and puffy just because she is using it more. - Interventions to Obtain Goals PT Treatment Plan: Balance/Proprioception, Functional Activities, Gait Training , Patient/Family Education, Therapeutic Exercise OT Treatment Plan: ADL (Basic Care), Balance Training, IADL, Pt./Family Education, Ther. Exercise for ADL, UE Functional Training Goals Progress/Modifications: Time spent with patient and on floor reviewing data and documentin minutes. Barriers to dismissal: Pain and stiffness right low back right hip and right leg , emotional lability Medical decision-making: We will check a white count regarding the knee. Also check a venous Doppler in view of the swelling and redness. Begin Z-Donnie per request.
--- NOTE | 2017-01-12 11:05 | Ultrasound Report ---
Indication: pain and swelling right leg, recent knee replacement surgery PROCEDURE: US venous doppler LE RT: Encounter: Initial Comparison: None Technique: Color Doppler duplex and grayscale sonographic imaging of the right lower extremity was performed. Findings: There is no evidence for acute deep venous thrombosis in the right thigh. Specifically, serial graded compression was performed from the inguinal ligament to the popliteal bifurcation, on the right thigh, demonstrating appropriate compressibility of the deep venous system. In addition, color and pulsed Doppler demonstrate appropriate spontaneous flow, variation with respiration, and augmentation with calf compression. At the ankle, normal flow is identified in the posterior tibial veins; these vessels are also normal in caliber. Impression: No evidence of acute DVT in the right lower limb. .
--- NOTE | 2017-01-12 13:07 | Progress Note ---
<TommyElba Liz - Last Filed: 01/12/17 13:02> Subjective: Luan is seen today in follow up for her recent CVA. She is seen while sitting in her recliner, working with therapy. She is very pleased with her therapy progress and demonstrates her improved hand mobility. She continues to complain of right hip and knee pain but admits to increased mobility with both. She denies any fevers, chills, nausea, vomiting, chest pain, shortness of breath, abdominal pain or dysuria. She does complain of feeling constipated despite recent documented bowel movements. Her appetite has been good. Review of the medical records and prior notes indicates that yesterday afternoon she complained of indigestion and right shoulder pain. An EKG and troponin were obtain and were negative. No other new labs are available for review. Due to concerns of increased swelling, redness and pain to her right thigh, knee and calf, and ultra sound was obtained this morning and was negative for acute changes or DVT. Results of the ultrasound were review with Luan and she complains of clicking sensation to the medial aspect of her right knee since she fell 3 weeks ago. She denies any prior imaging including x-ray. She was started on azithromycin today for sinus infection per the patient's strong request according to Dr. Gonzalez' note. Objective Vital signs: Temperature 98.1 F 01/12/17 08:00 Pulse Rate 61 01/12/17 08:00 Respiratory Rate 12 01/12/17 08:00 Blood Pressure 117/58 01/12/17 08:00 Pulse Oximetry 98 01/12/17 08:00 Height/Weight/BMI: Height 5 ft 2 in Weight 169 lb 15.622 oz Body Mass Index 31.1 - Constitutional Present: no acute distress, well nourished, well developed, cooperative - Routine HEENT Exam Head: Present: normocephalic, atraumatic Eye: Present: PERRL. Absent: conjunctival icterus ENT: Present: mucous membranes moist - Routine Respiratory Exam Present: CTA bilaterally. Absent: stridor, wheezes, crackles - Routine Cardiovascular Exam Present: RRR, S1, S2 - Routine Abdominal Exam Present: soft, normoactive bowel sounds, non distended, non tender - Routine Extremities Exam Present: pulses intact Comments: swelling to right knee as compared to left with healing linear incision noted to right knee that is clean, dry and intact. Mild erythema and warmth noted to anterior right knee with dry skin flaking off. - Routine Back/Spine/Pelvis Exam Back/Spine: Present: full ROM - Routine Musculoskeletal Exam Musculoskeletal: Present: moving extremities well, limited range of motion ( right side, right knee), surgical scar - Routine Skin Exam Present: intact, erythema (mild, right knee), dry, warm Comments: afebrile - Routine Neurological Exam Present: alert, oriented X3, moving all extremities, hearing grossly intact, normal speech - Routine Psychiatric Exam Present: cooperative Results - Labs CBC & Chem 7: 01/08/17 05:32 01/10/17 03:56 Assessment and Plan (1) Left pontine CVA Current visit: Yes Status: Acute DVT Prophylaxis: Lovenox GI Prophylaxis: other (Zantac) Resuscitation Status: Do Not Resuscitate Assessment and Plan: 01/12: [place]. 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 Continue to encourage participation in therapies and provide safe and supportive environment. Concern regarding increased pain to posterior thigh and calf with increased swelling to right knee and mild erythema to right knee. US obtain and was negative for DVT. Patient reports that she had her knee replaced in November and injured it when she fell 3 weeks ago. Clicking sensation noted to medial aspect of right knee which patient reports is knee. Will obtain knee x-ray and consult ortho for further evaluation and treatment recommendations. Appreciate their time and expertise. Due to patient concerns and strong requests, she was initiated on a z-pack for suspected sinus infection by Dr. Gonzalez. Monitor closely for additional signs of respiratory infections. Antibiotic to be complete on 01/16. Patient complained of indigestion and shoulder pain yesterday afternoon. Troponin was negative at <0.012. No pain or concerns currently. Continue with medication for GERD and GI protection. Continue with Flexeril and gabapentin for pain control. Continue mediations for bowel motivation. Sepsis Assessment - Evaluation Sepsis screening result: No Definite Risk Hospital Course Summary Disclaimer: The visit summary below is not to be considered part of the above Progress Note. 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 Continue meclizine for dizziness. PT/OT orders per Dr. Gonzalez. Recommend reassessment by speech given her reported improvement in speech and swallow ability. KDur for hypokalemia. HTN - Norvasc 10 mg; Lisinopril 40 mg; Maxzide [place] records reviewed - I asked nurses to verify home meds so we know which medications she will need Rx at time of discharge. Pneumococcal vaccine given. 01/09/17 Add Neurontin 100 mg and Flexeril 5 mg HS to help with sciatic pain. Constipation - prefers to try prune juice but will add PRN bowel aids in case she needs them. BP moderately elevated - permissive HTN in setting of acute stroke. Continue with current antiHTN. BGM - good control. 01/11/17 Reviewed external medication list. She was recently increased to Prozac 30 mg daily. She also uses Clonazepam 0.5 mg several times during the day and once at night. Will add the night dose to help with sleeping. Noted she was recently prescribed Ambien. Nursing staff calls following exam to reports she is now complaining of indigestion and shoulder pain. Obtain EKG and Troponin at this time. Continue with Flexeril and gabapentin for pain control Encouraged patient to work with PT/OT as she does noted improvements in right hand strength. 01/12/17: Overall, Luan is making good gains in therapy and with her strength. Continue to encourage participation in therapies and provide safe and supportive environment. Concern regarding increased pain to posterior thigh and calf with increased swelling to right knee and mild erythema to right knee. US obtain and was negative for DVT. Patient reports that she had her knee replaced in November and injured it when she fell 3 weeks ago. Clicking sensation noted to medial aspect of right knee which patient reports is knee. Will obtain knee x-ray and consult ortho for further evaluation and treatment recommendations. Appreciate their time and expertise. Due to patient concerns and strong requests, she was initiated on a z-pack for suspected sinus infection by Dr. Gonzalez. Monitor closely for additional signs of respiratory infections. Antibiotic to be complete on 01/16. Patient complained of indigestion and shoulder pain yesterday afternoon. Troponin was negative at <0.012. No pain or concerns currently. Continue with medication for GERD and GI protection. Continue with Flexeril and gabapentin for pain control. Continue mediations for bowel motivation. <Xiomy Hirsch - Last Filed: 01/13/17 20:36> Objective Vital signs: Temperature 98.6 F 01/13/17 19:47 Pulse Rate 74 01/13/17 19:47 Respiratory Rate 18 01/13/17 19:47 Blood Pressure 148/67 H 01/13/17 19:47 Pulse Oximetry 95 01/13/17 19:47 Height/Weight/BMI: Height 1.57 m Weight 77.1 kg Body Mass Index 31.1 Results - Labs CBC & Chem 7: 01/12/17 18:22 01/10/17 03:56 Assessment and Plan (1) Left pontine CVA Current visit: Yes Status: Acute Hospital Course Summary Disclaimer: The visit summary below is not to be considered part of the above Progress Note.
--- NOTE | 2017-01-12 14:32 | IRU Team Meeting ---
IRU Team Meeting - Nursing Vital Signs: Vital Signs - 24 hr 01/11/17 16:00 01/11/17 21:22 01/12/17 08:00 Temperature 98.1 F 98.6 F 98.1 F Pulse Rate 72 74 61 Respiratory Rate 16 15 12 Blood Pressure 145/69 H 147/80 H 117/58 Pulse Oximetry 95 95 98 Current Medications: Acetaminophen/Hydrocodone Bitart (Severy 5/325) 1 tab PO Q4H PRN PRN Reason: Pain Last Admin: 01/12/17 12:45 Dose: 1 tab Al Hydroxide/Mg Hydroxide (Maalox Plus) 30 ml PO Q3H PRN PRN Reason: Indigestion Last Admin: 01/11/17 20:47 Dose: 30 ml Amlodipine Besylate (Norvasc) 10 mg PO DAILY [facility] Last Admin: 01/12/17 08:43 Dose: 10 mg Atorvastatin Calcium (Lipitor) 40 mg PO HS [facility] Last Admin: 01/11/17 20:48 Dose: 40 mg Azithromycin (Zithromax Eq.) 250 mg PO ACB [facility] Stop: 01/16/17 12:00 Calcium Carbonate (Tums) 500 mg PO Q2H PRN Clonazepam (Klonopin) 0.5 mg PO DAILY [facility] Last Admin: 01/12/17 08:43 Dose: 0.5 mg Clonazepam (Klonopin) 0.5 mg PO HS [facility] Last Admin: 01/11/17 20:47 Dose: 0.5 mg Clopidogrel Bisulfate (Plavix) 75 mg PO DAILY [facility] Last Admin: 01/12/17 08:43 Dose: 75 mg Cyclobenzaprine HCl (Flexeril) 5 mg PO HS PRN PRN Reason: Muscle spasm Last Admin: 01/10/17 20:34 Dose: 5 mg Enoxaparin Sodium (Lovenox) 40 mg SQ DAILY [facility] Last Admin: 01/12/17 09:50 Dose: 40 mg Fluoxetine HCl (Prozac) 30 mg PO DAILY [facility] Last Admin: 01/12/17 08:42 Dose: 30 mg Gabapentin (Neurontin) 100 mg PO HS [facility] Last Admin: 01/11/17 20:47 Dose: 100 mg Glipizide (Glucotrol) 10 mg PO BIDWM [facility] Last Admin: 01/12/17 08:43 Dose: 10 mg Levothyroxine Sodium (Synthroid) 50 mcg PO ACB [facility] Last Admin: 01/12/17 05:38 Dose: 50 mcg Lisinopril (Prinivil) 40 mg PO DAILY [facility] Last Admin: 01/12/17 08:42 Dose: 40 mg Magnesium Hydroxide (Mom) 30 ml PO DAILY PRN PRN Reason: Constipation Meclizine HCl (Antivert) 12.5 mg PO TID [facility] Last Admin: 01/12/17 08:43 Dose: 12.5 mg Polyethylene Glycol (Miralax) 17 gm PO DAILY PRN PRN Reason: Constipation Ranitidine HCl (Zantac) 150 mg PO HS [facility] Last Admin: 01/11/17 20:47 Dose: 150 mg Senna/Docusate Sodium (Senna Plus Tablet) 1 tab PO BID PRN PRN Reason: Constipation Triamterene/HCTZ (Maxzide-25 Eqv) 1 tab PO DAILY [facility] Last Admin: 01/12/17 08:42 Dose: 1 tab Current Medical Issues: 1. Recent CVA with right-sided weakness 2. Pain in right knee with some limitation of range of motion 3. Sciatica pain right leg Comments: I certify that I personally led the interdisciplinary team meeting and agree with comments, barriers and goals indicated. Team meeting was held in the patient's room with the patient and the following family members present: Patient alone - Speech Therapy Patient is more comfortable with soft foods. She is working with speech therapy. Does have a prominent cricopharyngeal bar that will require addressing down the road. Swallow study demonstrated weakness in base of tongue and she is doing exercises in this regard. At home she will be able to consume water consistency food that she wishes. - Physical Therapy Comments: She is progressing with physical therapy. She is contact-guard assistance walking 226 feet. She declines to try the stairs. Car transfers are contact guard assistance. - Occupational Therapy Comments: She is modified independent functioning for upper body dressing, standby assistance for lower body dressing and standby assistance for baths. - Goals 1. Walk at modified independent functioning 3 and 50 feet 2. Increased standing endurance to 10 minutes 3. Work in kitchen for ADLs more - Barriers to Discharge Barriers to Attaining Goals: Pain Control, Other (anxiety) - Care Plan Anticipated DC Destination: Home, Self Care, Home Health Service I have led this team conference and agree with the plan. Anticipated Length of Stay (days): 6
--- NOTE | 2017-01-12 14:53 | XRay Report ---
Indication: knee pain; s/p TKA PROCEDURE: XR knee RT 3V: Encounter: Initial Comparison: December 15, 2016 Findings: There is no acute fracture, dislocation or malalignment identified. Total knee prosthesis appears stable in position. No evidence of hardware failure. Impression: Stable appearance of the right total knee prosthesis. .
--- NOTE | 2017-01-12 17:58 | Orthopedic Consult Note ---
Orthopedic Consultation HPI - Consultation Info Consult Date: 01/12/17 Attending Physician: Josiah Gonzalez MD Consult Reason: joint pain - History of Present Illness Mrs Ge is a 72 yo lady who had a left TKA on 12/15/[address] Lainez. She did well with her knee replacement and has been working with therapy for the rehab process. Unfortunately, she developed some right sided weakness and slurred speech about 1 1/2 weeks ago. She was seen at [facility] and diagnosed with a CVA. Pt is now in our IRU recovering from this stroke. She still has some right sided weakness but admits it is improving. She has trouble lifting the right leg and wonders if it is from the stroke or another problem. She reports that it feels like the knee needs to pop or something. Prior to the stroke she had good movement and was progressing well with PT. Nursing reports that she trouble walking normally and doesn't strike the foot on the ground normally. She does have some knee pain in the suprapatellar region and along both sides. Denies increased knee swelling or any bruising. Review of Systems - Constitutional Constitutional: Present: weakness (Recent CVA.). Absent: chills, fever(s) - EENT Eyes: Present: diplopia (when she looks to one side.) Ears, nose, mouth, throat: Absent: headaches, lightheadedness - Cardiovascular Cardiovascular: Absent: chest pain, palpitations - Respiratory Respiratory: Absent: cough, dyspnea, hemoptysis - Gastrointestinal Gastrointestinal: Absent: abdominal pain, nausea - Genitourinary Genitourinary General: Absent: chills, fever(s) - Musculoskeletal Musculoskeletal: Present: as per HPI, muscle weakness (Right CVA with weakness.) - Integumentary/Breasts Integumentary: Absent: erythema, lesions, rash - Neurological Neurological: Present: abnormal gait, weakness, change in strength, other ( Slurred speech improving.). Absent: numbness, tingling PFSH Patient Stated Medical History Hypertension Yes Sleep Apnea No Diabetes Mellitus Type 2 Yes Constipation Yes Gastroesophageal Reflux Yes Disease Other GI Yes: IBS, constipation Hx Incontinence Yes: Used to leak after hysterectomy Osteoarthritis Yes Anesthesia Reactions Yes: N/V Depression Yes: anxiety Uterine Prolapse Yes Clinic Medical History (Last Reviewed 11/04/16 @ 10:23 by Lucho Lainez MD) Hernández's palsy (Chronic Medical) Osteoarthritis (Chronic Medical) Depression (Chronic Medical) Anxiety (Chronic Medical) Thyroid disease (Chronic Medical) High cholesterol (Chronic Medical) HTN (hypertension) (Chronic Medical) Surgical History: Hysterectomy & BSO, Tonsillectomy, Multiple nasal surgeries, cholecystectomy, Lt wrist-ORIF, tubal ligation. Recent right total knee replacement 12/15/16. Transthoracic echocardiogram 12/2016 EF 55-65%, some dilatation of left atrium. Carotid ultrasound 12/2016 mild atherosclerotic plaque in both carotids without hemodynamically significant stenosis Family History: Family History (Last Reviewed 11/04/16 @ 10:23 by Lucho Lainez MD) Father HTN (hypertension) Heart attack Mother Diabetes Osteoarthritis - Social History Smoking status: Former smoker (used to smoke "socially") Current residence: Apartment/Private Home Medications Home Medications Medication Instructions Recorded Confirmed Type Levothyroxine Sodium 50 mcg PO ACB #0 12/01/14 01/07/17 History glipiZIDE [Glipizide] 10 mg PO BIDWM #0 04/21/15 01/07/17 History Lisinopril [Prinivil] 40 mg PO DAILY 11/05/16 01/07/17 History clonazePAM [Clonazepam] 0.5 mg PO DAILY 11/05/16 01/07/17 History Amlodipine [Norvasc] 10 mg PO DAILY 12/11/16 01/07/17 History FLUoxetine [Prozac] 30 mg PO DAILY 12/11/16 01/07/17 History Triamterene/Hydrochlorothiazid 1 cap PO DAILY 12/11/16 01/07/17 History [Triamterene-Hctz 37.5-25 mg Tb] Atorvastatin [Lipitor] 1 tab PO HS 01/07/17 01/07/17 History Clopidogrel [Plavix] 1 tab PO DAILY 01/07/17 01/07/17 History Allergies Allergy/AdvReac Type Severity Reaction Status Date / Time aspirin Allergy Intermediate Tinnitus Verified 01/07/17 20:55 latex Allergy Intermediate Rash Verified 01/08/17 05:23 levofloxacin Allergy Intermediate Verified 11/04/16 09:54 Penicillins Allergy Unknown Verified 01/07/17 20:52 Orthopedic Exam Vital signs: Temperature 98.3 F 01/12/17 16:00 Pulse Rate 69 01/12/17 16:00 Respiratory Rate 20 01/12/17 16:00 Blood Pressure 150/72 H 01/12/17 16:00 Pulse Oximetry 91 01/12/17 16:00 - Constitutional General Appearance: Present: alert, cooperative, no acute distress - Respiratory Exam Present: non-labored - Cardiovascular Exam Present: pedal pulses intact Capillary Refill: < 2-3 Seconds - Abdominal Exam Present: soft. Absent: tenderness, distended - Extremities Exam Present: pulses intact, normal capillary refill. Absent: calf tenderness, joint swelling Comments: Pt is unable to fully extend the knee in a seated position, but lying down she can do a SLR with no lag. She is weak with SLR and quad extension. Weak with DF of the right ankle and extension of the rt great toe. She is able to get the knee fully extended while lying down and flexes to 115 degrees. The knee has no palpable defects in the quad tendon, patellar tendon or medial capsule. Patella appears to track normally. There is no bruising or signs of traumatic injury to the knee. Surgical incision is healing normally for 3-4 weeks post op. The hip shows no pain with PROM or log roll. Leg length and rotation are normal. - Integumentary Exam Present: pink, warm, dry, intact. Absent: bruising, erythema - Neurological Exam Present: intact to light touch, other (Weakness with DF of the right ankle and extension of the rt great toe. Card Cutter strength is nearly equal. Speech improving.) - Psychiatric Exam Present: alert, oriented, normal affect - Labs Result Diagrams: 01/08/17 05:32 01/10/17 03:56 H & H 01/08/17 Range/Units 05:32 Hgb 11.0 L (12-16) GM/DL Hct 34.7 L (36-46) % Impression and Recommendation (1) Status post total right knee replacement Current visit: Yes Status: Chronic Her xrays look normal. Exam shows some right LE weakness which is consistent with her CVA dx. Continue to work with PT. I suspect her weakness will gradually improve as she has certainly shown signs of progress with the other areas. We will continue to follow her. Use a walker with ambulation as she does have some increased risk of falling due to weakness. Hospital Course Summary Disclaimer: The visit summary below is not to be considered part of the above Progress Note. 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 Continue meclizine for dizziness. PT/OT orders per Dr. Gonzalez. Recommend reassessment by speech given her reported improvement in speech and swallow ability. KDur for hypokalemia. HTN - Norvasc 10 mg; Lisinopril 40 mg; Maxzide [place] records reviewed - I asked nurses to verify home meds so we know which medications she will need Rx at time of discharge. Pneumococcal vaccine given. 01/09/17 Add Neurontin 100 mg and Flexeril 5 mg HS to help with sciatic pain. Constipation - prefers to try prune juice but will add PRN bowel aids in case she needs them. BP moderately elevated - permissive HTN in setting of acute stroke. Continue with current antiHTN. BGM - good control. 01/11/17 Reviewed external medication list. She was recently increased to Prozac 30 mg daily. She also uses Clonazepam 0.5 mg several times during the day and once at night. Will add the night dose to help with sleeping. Noted she was recently prescribed Ambien. Nursing staff calls following exam to reports she is now complaining of indigestion and shoulder pain. Obtain EKG and Troponin at this time. Continue with Flexeril and gabapentin for pain control Encouraged patient to work with PT/OT as she does noted improvements in right hand strength. 01/12/17: Overall, Luan is making good gains in therapy and with her strength. Continue to encourage participation in therapies and provide safe and supportive environment. Concern regarding increased pain to posterior thigh and calf with increased swelling to right knee and mild erythema to right knee. US obtain and was negative for DVT. Patient reports that she had her knee replaced in November and injured it when she fell 3 weeks ago. Clicking sensation noted to medial aspect of right knee which patient reports is knee. Will obtain knee x-ray and consult ortho for further evaluation and treatment recommendations. Appreciate their time and expertise. Due to patient concerns and strong requests, she was initiated on a z-pack for suspected sinus infection by Dr. Gonzalez. Monitor closely for additional signs of respiratory infections. Antibiotic to be complete on 01/16. Patient complained of indigestion and shoulder pain yesterday afternoon. Troponin was negative at <0.012. No pain or concerns currently. Continue with medication for GERD and GI protection. Continue with Flexeril and gabapentin for pain control. Continue mediations for bowel motivation.
[2017-01-12] MEDS: CYCLOBENZAPRINE 5 MG TABLET PO SCH (20:00)
[2017-01-12] MEDS: RANITIDINE 150 MG TABLET PO SCH (20:01)
[2017-01-12] MEDS: ATORVASTATIN 40 MG TABLET PO SCH (20:01)
[2017-01-12] MEDS: MAG-AL + SIM ORAL LIQUID 30ml PO PRN (20:01)
[2017-01-12] MEDS: GABAPENTIN 100 MG CAPSULE PO SCH (20:01)
[2017-01-13] MEDS: LEVOTHYROXINE 50 MCG TABLET PO SCH (06:19)
[2017-01-13] MEDS: HYDROCODONE/APAP 5mg/325mg TABLET PO PRN ×3 (07:45→21:14)
[2017-01-13] MEDS: GlipiZIDE 5 MG TABLET PO SCH ×2 (09:46→17:58)
[2017-01-13] MEDS: LISINOPRIL 40 MG TABLET PO SCH (09:46)
[2017-01-13] MEDS: ClonazePAM 0.5 MG TABLET PO SCH ×2 (09:46→20:58)
[2017-01-13] MEDS: FLUoxetine 10 MG CAPSULE PO SCH (09:46)
[2017-01-13] MEDS: AMLODIPINE 10 MG TABLET PO SCH (09:46)
[2017-01-13] MEDS: AZITHROMYCIN 250 MG TABLET PO SCH (09:46)
[2017-01-13] MEDS: MECLIZINE 12.5 MG TABLET PO SCH ×3 (09:47→20:58)
[2017-01-13] MEDS: CYCLOBENZAPRINE 5 MG TABLET PO SCH ×2 (09:47→20:58)
[2017-01-13] MEDS: ENOXAPARIN 40 MG/0.4 ML INJECTION SQ SCH (09:47)
[2017-01-13] MEDS: CLOPIDOGREL 75 MG TABLET PO SCH (09:47)
[2017-01-13] MEDS: TRIAMTERENE/HCTZ 37.5 MG-25 MG TABLET PO SCH (09:47)
--- NOTE | 2017-01-13 11:05 | IRU Progress Note ---
- Subjective/Serverity of Illness Sukh is sitting in her room with the lights out. Complains of a left-sided headache. This starts at the top of her head goes throughout the left eye area and under the right cheek and even into the left neck. She says that she has not had migraines before but does have frequent headaches. She attributes this to the sinus infection. She was started on azithromycin yesterday per her request. She continues to blow out discolored material from her nose and in fact had some blood blown out today. She complained of a lot of knee pain yesterday. She was seen by Dr. Lainez. Knee was felt to be stable. She is able to extend it fully when she is in the supine position but not in the sitting position. Continuing to work with therapy in this regard. The knee itself is actually much less red today. Venous Doppler was negative. She continues to be extremely anxious and tearful. Psychiatry has been consulted. She is perfectly fine with this. She is already on several medications in this regard. 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 Update on medical conditions as follows: 1. Acute CVA Left Devante, ischemic with neg carotids and echo: She has recently been started on Plavix. No evidence of bleeding. No evidence of worsening neurologic status. Appears to be stable at this time. She has had no new symptoms of weakness. However this certainly has affected her recovery with regard to strength on the right leg and right arm. 2. DM II: She is on oral agents. Her blood sugars are reasonably well- controlled. These are reviewed and continue to be stable. 3. Hypertension: She is on oral agents for her hypertension. Her blood pressure is quite variable and likely related to her emotional status. It is running too high at times. 4. Dysphagia: She has been evaluated and is followed by speech therapy. She has some weakness at the base of her tongue. However has minimal impairment otherwise. Per nursing, she has variable degrees of ability to swallow safely however. 5. Dizziness: She reports subacute to chronic "dizziness." Appears to be stable. 6. Depression: This appears to be a chronic issue for her. She is on antidepressants. As noted above, much of this may be pseudobulbar affect. Psychiatry has been consulted. I am not certain she will be able to afford Nuedexta but we consider this as an option. 7. Right knee pain: This is stable. The white count is normal. No evidence of infection in the redness is improved. Venous Doppler negative yesterday. 8. Possible acute sinusitis with headache: She is on azithromycin. She is afebrile and the white count is normal. Exam Vital Signs: Temperature 98.2 F 01/13/17 08:00 Pulse Rate 72 01/13/17 08:00 Respiratory Rate 18 01/13/17 08:00 Blood Pressure 150/63 H 01/13/17 08:00 Pulse Oximetry 96 01/13/17 08:00 Height/Weight/BMI: Height 1.57 m Weight 77.1 kg Body Mass Index 31.1 Comments: The patient is awake, alert and oriented. She is tearful, agitated and very worried that she may have another stroke. I attempted to reassure at this time. Her neurologic status appears to be quite stable. Pupils are equal. The neck is supple. Chest: Clear to auscultation bilaterally. Cor: RR with no gallop, click nor murmur Abd: soft with normo-active bowel sounds. There are no masses, no tenderness and no guarding. Extremities: No edema is noted. Right knee continues to have difficulty with full extension. However the redness and warmth is substantially improved today. Continues to demonstrate weakness on the right side from her recent CVA. It is not worse. Results IRU - Labs Labs: Reviewed white count which is normal. Sepsis Assessment - Evaluation Sepsis screening result: No Definite Risk IRU A/P (1) Left pontine CVA Current visit: Yes Status: Acute She is medically stable with regard to the recent CVA. Remains on Plavix without evidence of bleeding. (2) DM type 2 (diabetes mellitus, type 2) Qualifiers: Diabetes mellitus complication status: without complication Diabetes mellitus chcf insulin use: without chcf use Qualified Code(s): E11.9 - Type 2 diabetes mellitus without complications Current visit: Yes Status: Chronic Blood sugars are reasonably well controlled. (3) Knee osteomyelits, right Current visit: Yes Status: Chronic (4) Status post total right knee replacement Current visit: Yes Status: Chronic Appreciate Dr. Lainez's assessment. The knee appears to be stable. No evidence of infection. Recovery has been hampered by her CVA unfortunately. (5) Benign essential hypertension Current visit: Yes Status: Chronic (6) Mixed hyperlipidemia Current visit: Yes Status: Chronic (7) Sciatica of right side Current visit: Yes Status: Acute She had a pre-existing sciatica involving the right side. Her stroke is also made the pain worse. (8) Depression Qualifiers: Depression Type: major depressive disorder Major depression recurrence: recurrent Active/Remission status: currently active Major depression episode severity: severe Psychotic features: without psychotic features Qualified Code(s): F33.2 - Major depressive disorder, recurrent severe without psychotic features Current visit: No Status: Chronic She continued to be very anxious and tearful. 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 Psychiatry has been consulted. DVT Prophylaxis: Lovenox Resuscitation Status: Do Not Resuscitate - Course Hospital Course: Josiah Gonzalez MD: 01/11/17 10:21 Continues to progress with therapy. Dysphagia with minimal impairment. She is emotionally labile and anxious. 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 Considered use of Nuedexta but likely not able to afford it when she gets out. In addition we would have to cut back on current antidepressants. Continues to complain of right hip and low back pain and discomfort consistent with sciatica. Blood pressure a bit elevated. 01/12/17 10:40 She would like an antibiotic for her sinuses. Advised to resume her may not be of benefit. We will try a Z-Donnie due to discolored drainage. Blood pressures are improved. Continues to be emotionally labile and anxious with probable pseudobulbar affect. We will check a venous Doppler due to more swelling and redness involving the right knee. We'll check a white count although she is able to bend the knee fairly well so that would argue against primary knee joint infection. May be more red and puffy just because she is using it more. 01/13/17 11:[address] Lainez's evaluation of her knee which appears to be stable. White count is normal and there is no evidence of infection. Venous Doppler negative. Continues to experience weakness on the right side as anticipated from her stroke. It is not worse. She is neurologically stable and remains on Plavix. Continues to be very tearful and anxious and psychiatry is been consulted. - Interventions to Obtain Goals PT Treatment Plan: Balance/Proprioception, Functional Activities, Gait Training , Patient/Family Education, Therapeutic Exercise OT Treatment Plan: ADL (Basic Care), Balance Training, IADL, Pt./Family Education, Ther. Exercise for ADL, UE Functional Training Goals Progress/Modifications: Time spent with patient and on floor reviewing data and documentin minutes Barriers to dismissal: Right leg sciatica, emotional lability with anxiety and depression, right knee pain Medical decision-making: Again discussed her sinus discharge with her. Also discussed the right knee pain, right leg pain and her headache. Has multiple medical issues that we are dealing with which impacts her functional recovery from the stroke from a rehabilitation standpoint.
--- NOTE | 2017-01-13 20:46 | Progress Note ---
Subjective: The patient was seen this evening in her room. She states that her right upper extremity weakness has improved markedly since she came to rehabilitation. She states she had spasms in her right leg earlier this morning and was very worried that she was having another stroke. She admits that she gets anxious very easily. She also complains of sinus infection and headache but it is better this evening than it was this morning. She states she is eating a little better. She does complain of constipation. She also has intermittent heartburn and indigestion which has been a chronic problem for her. H2 beatriz was started 3 nights ago and she noticed her heartburn has improved. She now only notices it when she is belching and has an acid feeling in her chest. On Wednesday , she had indigestion and right shoulder pain. She states that her shoulder has been uncomfortable since her stroke because it is weak and pulls downwards. She denies any chest discomfort with activity. She has never seen a studio model before. She denies any shortness of breath with activity. She does state that she gets some dizziness when she is up walking and feels a little lightheaded. She admits that she's had difficult to control blood pressure for quite some time. Objective Vital signs: Temperature 98.6 F 01/13/17 19:47 Pulse Rate 74 01/13/17 19:47 Respiratory Rate 18 01/13/17 19:47 Blood Pressure 148/67 H 01/13/17 19:47 Pulse Oximetry 95 01/13/17 19:47 Height/Weight/BMI: Height 1.57 m Weight 77.1 kg Body Mass Index 31.1 Comments: GEN-alert, oriented, no acute distress HEENT-mild right facial droop NECK-supple CV-regular rate and rhythm CHEST-to auscultation bilaterally ABD-soft, nontender, nondistended with positive bowel sounds -no Granda EXT-no significant lower extremity edema NEURO-mild weakness in the right upper extremity, she has fairly good range of motion now and states that her arm was almost flaccid when she was admitted. She has some mild dysarthria. SKIN-warm and dry and without rashes Results - Labs CBC & Chem 7: 01/12/17 18:22 01/10/17 03:56 Assessment and Plan (1) Left pontine CVA Current visit: Yes Status: Acute Assessment and Plan: 01/13/2017-Dr. 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 Blood pressure is still a little labile. She may need additional antihypertensives. GERD has improved with Zantac. Blood sugars are currently fairly well controlled. Recheck CBC and basic metabolic profile tomorrow. Hospital Course Summary Disclaimer: The visit summary below is not to be considered part of the above Progress Note. 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 Continue meclizine for dizziness. PT/OT orders per Dr. Gonzalez. Recommend reassessment by speech given her reported improvement in speech and swallow ability. KDur for hypokalemia. HTN - Norvasc 10 mg; Lisinopril 40 mg; Maxzide [place] records reviewed - I asked nurses to verify home meds so we know which medications she will need Rx at time of discharge. Pneumococcal vaccine given. 01/09/17 Add Neurontin 100 mg and Flexeril 5 mg HS to help with sciatic pain. Constipation - prefers to try prune juice but will add PRN bowel aids in case she needs them. BP moderately elevated - permissive HTN in setting of acute stroke. Continue with current antiHTN. BGM - good control. 01/11/17 Reviewed external medication list. She was recently increased to Prozac 30 mg daily. She also uses Clonazepam 0.5 mg several times during the day and once at night. Will add the night dose to help with sleeping. Noted she was recently prescribed Ambien. Nursing staff calls following exam to reports she is now complaining of indigestion and shoulder pain. Obtain EKG and Troponin at this time. Continue with Flexeril and gabapentin for pain control Encouraged patient to work with PT/OT as she does noted improvements in right hand strength. 01/12/17: Overall, Luan is making good gains in therapy and with her strength. Continue to encourage participation in therapies and provide safe and supportive environment. Concern regarding increased pain to posterior thigh and calf with increased swelling to right knee and mild erythema to right knee. US obtain and was negative for DVT. Patient reports that she had her knee replaced in November and injured it when she fell 3 weeks ago. Clicking sensation noted to medial aspect of right knee which patient reports is knee. Will obtain knee x-ray and consult ortho for further evaluation and treatment recommendations. Appreciate their time and expertise. Due to patient concerns and strong requests, she was initiated on a z-pack for suspected sinus infection by Dr. Gonzalez. Monitor closely for additional signs of respiratory infections. Antibiotic to be complete on 01/16. Patient complained of indigestion and shoulder pain yesterday afternoon. Troponin was negative at <0.012. No pain or concerns currently. Continue with medication for GERD and GI protection. Continue with Flexeril and gabapentin for pain control. Continue mediations for bowel motivation. 01/12: [place]. 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 Continue to encourage participation in therapies and provide safe and supportive environment. Concern regarding increased pain to posterior thigh and calf with increased swelling to right knee and mild erythema to right knee. US obtain and was negative for DVT. Patient reports that she had her knee replaced in November and injured it when she fell 3 weeks ago. Clicking sensation noted to medial aspect of right knee which patient reports is knee. Will obtain knee x-ray and consult ortho for further evaluation and treatment recommendations. Appreciate their time and expertise. Due to patient concerns and strong requests, she was initiated on a z-pack for suspected sinus infection by Dr. Gonzalez. Monitor closely for additional signs of respiratory infections. Antibiotic to be complete on 01/16. Patient complained of indigestion and shoulder pain yesterday afternoon. Troponin was negative at <0.012. No pain or concerns currently. Continue with medication for GERD and GI protection. Continue with Flexeril and gabapentin for pain control. Continue mediations for bowel motivation.
[2017-01-13] MEDS: RANITIDINE 150 MG TABLET PO SCH (20:58)
[2017-01-13] MEDS: GABAPENTIN 100 MG CAPSULE PO SCH (20:58)
[2017-01-13] MEDS: ATORVASTATIN 40 MG TABLET PO SCH (20:58)
[2017-01-13] MEDS: POLYETHYL GLYCOL 3350 17gm PACKET PO SCH (20:59)
--- NOTE | 2017-01-13 22:10 | Neuropsychiatric Consult ---
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 Pt has a hx of anxiety and depression and was recently admitted to rehab after a stroke. Nursing reports pt has been complaining of depression and this AM made some morbid statements she wishes she were . On face to face the pt is pleasant. She states she is depressed due to her current situation. She denies any pain. STRESSORS: Pt states her knee surgery and her stroke have been major stressors. She states this AM she became very anxious that she was having another stroke. She states this brought on alot of fear and anxiety because the past stroke was traumatizing to her. She states this caused her to feel hopeless this AM and "I just wanted to give up". She states this has improved. PSYCH ROS: Pt reports feeling depressed with low energy and motivation, decreased interest and issues falling asleep. She states she has anxiety and has panic type symptoms at times but feel the Clonazepam is helpful. She denies any S/I. Denies bandar or psychosis. PAST PSYCH: PT has had 2 previous admissions to [facility] for S/I. She has been on Prozac and Clonazepam off and on for many years nd feels it has worked well annd would like to stay on this combination [facility] Patient Stated Medical History Hypertension Yes Sleep Apnea No Diabetes Mellitus Type 2 Yes Constipation Yes Gastroesophageal Reflux Yes Disease Other GI Yes: IBS, constipation Hx Incontinence Yes: Used to leak after hysterectomy Osteoarthritis Yes Anesthesia Reactions Yes: N/V Depression Yes: anxiety Uterine Prolapse Yes Clinic Medical History (Last Reviewed 11/04/16 @ 10:23 by Lucho Lainez MD) Hernández's palsy (Chronic Medical) Osteoarthritis (Chronic Medical) Depression (Chronic Medical) Anxiety (Chronic Medical) Thyroid disease (Chronic Medical) High cholesterol (Chronic Medical) HTN (hypertension) (Chronic Medical) Surgical History: Hysterectomy & BSO, Tonsillectomy, Multiple nasal surgeries, cholecystectomy, Lt wrist-ORIF, tubal ligation. Recent right total knee replacement 12/15/16. Transthoracic echocardiogram 12/2016 EF 55-65%, some dilatation of left atrium. Carotid ultrasound 12/2016 mild atherosclerotic plaque in both carotids without hemodynamically significant stenosis Family History: Family History (Last Reviewed 11/04/16 @ 10:23 by Lucho Lainez MD) Father HTN (hypertension) Heart attack Mother Diabetes Osteoarthritis - Social History Smoking status: Former smoker (used to smoke "socially") Current residence: Apartment/Private Home Review of Systems - EENMT Balance: Present: other (has had a couple of falls recently.) Mouth/Throat: Present: as per HPI, changes in swallowing - Cardiovascular Rhythm: Present: regular rhythm Vascular: Absent: intermittent claudication - Psychiatric Psychiatric: Present: anhedonia, anxiety, depression, hopelessness, panic attacks Mental Status Exam Vitals: Last Vital Signs Temp 98.6 F 01/13/17 19:47 Pulse 74 01/13/17 19:47 Resp 18 01/13/17 19:47 BP 148/67 H 01/13/17 19:47 Pulse Ox 95 01/13/17 19:47 Height: 1.57 m Weight: 77.1 kg - Mental Status Exam Muscle Strength/Tone: Normal Dressing: Casual Grooming: Good Attitude: Cooperative Motor Activity: Retardation Eye Contact: Fair Speech: Normal Volume: Normal Rhythm: Appropriate Rhythm Orientation: Oriented X4 Mood: Depressed Affect: Sad Rate of Thoughts: Appropriate Rate Thought Organization: Organized Associations: Intact Abstract Reasoning: Intact, able to abstract Thought Content: Normal Perception/Psychotic: Perception Normal Language: Naming Intact Fund of Knowledge: Appropriate Memory: Grossly Intact Suicidal Ideation: None Homicidal Ideation: None Insight: Fair Judgement: Fair Impulse Control: Fair - Laboratory Result Diagrams: 01/12/17 18:22 01/10/17 03:56 Laboratory Results - last 24 hr 01/13/17 01/13/17 01/13/17 06:12 11:36 17:23 Glucometer 130 179 129 01/13/17 21:12 Glucometer 168 Assessment and Plan (1) Major depressive disorder, recurrent Qualifiers: Psychotic features: without psychotic features Current visit: Yes Status: Acute Continue medical management. PT denies any S/I and does not meet criteria for IP psych admission at this time. Will increase Prozac to 40mg daily. Some concern for Prozac being a CyP2D6 inhibitor but pt feels it works well and I dont see any clear contraindications. Agree with Clonazepam.
[2017-01-14] MEDS: AZITHROMYCIN 250 MG TABLET PO SCH (06:13)
[2017-01-14] MEDS: LEVOTHYROXINE 50 MCG TABLET PO SCH (06:13)
[2017-01-14] MEDS: HYDROCODONE/APAP 5mg/325mg TABLET PO PRN ×2 (06:14→21:08)
[2017-01-14] MEDS: ClonazePAM 0.5 MG TABLET PO SCH ×2 (08:28→21:08)
[2017-01-14] MEDS: CYCLOBENZAPRINE 5 MG TABLET PO SCH ×2 (08:29→21:07)
[2017-01-14] MEDS: GlipiZIDE 5 MG TABLET PO SCH ×2 (08:29→17:44)
[2017-01-14] MEDS: LISINOPRIL 40 MG TABLET PO SCH (08:29)
[2017-01-14] MEDS: CLOPIDOGREL 75 MG TABLET PO SCH (08:29)
[2017-01-14] MEDS: AMLODIPINE 10 MG TABLET PO SCH (08:29)
[2017-01-14] MEDS: FLUoxetine 20 MG CAPSULE PO SCH (08:29)
[2017-01-14] MEDS: TRIAMTERENE/HCTZ 37.5 MG-25 MG TABLET PO SCH (08:30)
[2017-01-14] MEDS: POLYETHYL GLYCOL 3350 17gm PACKET PO SCH (08:30)
[2017-01-14] MEDS: ENOXAPARIN 40 MG/0.4 ML INJECTION SQ SCH (10:11)
[2017-01-14] MEDS: MECLIZINE 12.5 MG TABLET PO SCH ×3 (10:11→21:08)
[2017-01-14] MEDS ORDERED: PANTOPRAZOLE 20 MG TABLET PO ONE (11:43)
--- NOTE | 2017-01-14 13:01 | Cardiology Consult Note ---
History of Present Illness Consult date: 01/14/17 <Stephanie Crum - 01/14/17 13:09> Requesting physician: Xiomy Hirsch <Stephanie Crum - 01/14/17 13:09> Consult reason: chest pain <Stephanie Crum - 01/14/17 13:09> Chief complaint: recent CVA, indigestion <Stephanie Crum - 01/14/17 13:09> History of present illness: Zulay Ge is a 72-year-old woman who was admitted to [facility] with an acute ischemic stroke to the left anterior lynda with right-sided partial hemiparesis following a right total knee replacement by Dr. Lainez on 12/15/[address]. [address] negative for hemorrhage; carotid ultrasound was negative for hemodynamically significant stenosis and echocardiogram with an EF of 55-65%. Lipid panel was assessed; statin was increased. Norvasc was held initially for permissive HTN. She was started on Plavix. She was evaluated by speech therapy, who recommended dysphagia diet. She was discharged from [facility] and admitted to [facility] on 01/07/17. She has had intermittent heartburn and indigestion, which has been a chronic problem for her. H2 beatriz was started 4 days ago and she reported that her heartburn has improved. She only notices it when she is belching and has an acid feeling in her chest. On Wednesday, she had indigestion and right shoulder pain. Troponin level was obtained and was negative. EKG was Sr with nonspecific ST-T wave changes. She reports that her shoulder has been uncomfortable since her stroke, and denies any chest discomfort with activity. She has never seen a precision honer before. <Stephanie Crum - 01/14/17 13:09> Review of Systems - Constitutional Constitutional: Absent: chills, fever(s) <Stephanie Crum 01/14/17 16:37> - EENMT Eyes: Absent: change in vision <Stephanie Crum 01/14/17 16:37> Ears: Absent: ear discharge <Stephanie Crum 01/14/17 13:09> Balance: Present: other (has had a couple of falls recently.) <Stephanie Crum 01/14/17 13:09> Nose: Absent: change in smell, pain <Stephanie Crum 01/14/17 13:09> Mouth/Throat: Present: as per HPI, changes in swallowing. Absent: sore throat <Stephanie Crum 01/14/17 16:37> - Cardiovascular Cardiovascular: Present: chest pain, dyspnea on exertion. Absent: palpitations , syncope <Stephanie Crum 01/14/17 16:37> Rhythm: Present: regular rhythm <Stephanie Crum 01/14/17 13:09> Vascular: Absent: intermittent claudication <Stephanie Crum 01/14/17 13:09> - Respiratory Respiratory: Present: dyspnea, dyspnea on exertion. Absent: cough <Stephanie Crum 01/14/17 16:37> - Gastrointestinal Gastrointestinal: Absent: abdominal pain, diarrhea, nausea, vomiting <Stephanie Crum 01/14/17 16:37> - Genitourinary Genitourinary: Absent: dysuria <Stephanie Crum 01/14/17 16:37> - Integumentary/Breasts Integumentary: Absent: rash <Stephanie Crum 01/14/17 16:37> - Neurological Neurological: Absent: dizziness <Stephanie Crum 01/14/17 16:37> - Endocrine Endocrine: Absent: palpitations <Stephanie Crum 01/14/17 16:37> PFS Patient Stated Medical History Hypertension Yes Sleep Apnea No Diabetes Mellitus Type 2 Yes Constipation Yes Gastroesophageal Reflux Yes Disease Other GI Yes: IBS, constipation Hx Incontinence Yes: Used to leak after hysterectomy Osteoarthritis Yes Anesthesia Reactions Yes: N/V Depression Yes: anxiety Uterine Prolapse Yes Clinic Medical History (Last Reviewed 11/04/16 @ 10:23 by Lucho Lainez MD) Hernández's palsy (Chronic Medical) Osteoarthritis (Chronic Medical) Depression (Chronic Medical) Anxiety (Chronic Medical) Thyroid disease (Chronic Medical) High cholesterol (Chronic Medical) HTN (hypertension) (Chronic Medical) <Richard Brady - 01/15/17 14:17> Patient Stated Medical History Hypertension Yes Sleep Apnea No Diabetes Mellitus Type 2 Yes Constipation Yes Gastroesophageal Reflux Yes Disease Other GI Yes: IBS, constipation Hx Incontinence Yes: Used to leak after hysterectomy Osteoarthritis Yes Anesthesia Reactions Yes: N/V Depression Yes: anxiety Uterine Prolapse Yes Clinic Medical History (Last Reviewed 11/04/16 @ 10:23 by Lucho Lainez MD) Hernández's palsy (Chronic Medical) Osteoarthritis (Chronic Medical) Depression (Chronic Medical) Anxiety (Chronic Medical) Thyroid disease (Chronic Medical) High cholesterol (Chronic Medical) HTN (hypertension) (Chronic Medical) <Stephanie Crum - 01/14/17 13:09> Surgical History: Hysterectomy & BSO, Tonsillectomy, Multiple nasal surgeries, cholecystectomy, Lt wrist-ORIF, tubal ligation. Recent right total knee replacement 12/15/16. Transthoracic echocardiogram 12/2016 EF 55-65%, some dilatation of left atrium. Carotid ultrasound 12/2016 mild atherosclerotic plaque in both carotids without hemodynamically significant stenosis <Stephanie Crum - 01/14/17 13:09> Family History: Family History (Last Reviewed 11/04/16 @ 10:23 by Lucho Lainez MD) Father HTN (hypertension) Heart attack Mother Diabetes Osteoarthritis <Richard Brady - 01/15/17 14:17> Family History (Last Reviewed 11/04/16 @ 10:23 by Lucho Lainez MD) Father HTN (hypertension) Heart attack Mother Diabetes Osteoarthritis <Stephanie Crum - 01/14/17 13:09> - Social History Smoking status: Former smoker (used to smoke "socially") <Stephanie Crum - 13:09> Current residence: Apartment/Private Home <Stephanie Crum - 01/14/17 13:09> Medications Home Medications Medication Instructions Recorded Confirmed Type Levothyroxine Sodium 50 mcg PO ACB #0 12/01/14 01/07/17 History glipiZIDE [Glipizide] 10 mg PO BIDWM #0 04/21/15 01/07/17 History Lisinopril [Prinivil] 40 mg PO DAILY 11/05/16 01/07/17 History clonazePAM [Clonazepam] 0.5 mg PO DAILY 11/05/16 01/07/17 History Amlodipine [Norvasc] 10 mg PO DAILY 12/11/16 01/07/17 History FLUoxetine [Prozac] 30 mg PO DAILY 12/11/16 01/07/17 History Triamterene/Hydrochlorothiazid 1 cap PO DAILY 12/11/16 01/07/17 History [Triamterene-Hctz 37.5-25 mg Tb] Atorvastatin [Lipitor] 1 tab PO HS 01/07/17 01/07/17 History Clopidogrel [Plavix] 1 tab PO DAILY 01/07/17 01/07/17 History <AmiRichard lundberg - 01/15/17 14:17> Allergies Allergy/AdvReac Type Severity Reaction Status Date / Time aspirin Allergy Intermediate Tinnitus Verified 01/07/17 20:55 latex Allergy Intermediate Rash Verified 01/08/17 05:23 levofloxacin Allergy Intermediate Verified 11/04/16 09:54 Penicillins Allergy Unknown Verified 01/07/17 20:52 <Richard Brady - 01/15/17 14:17> Exam Vital signs: Temperature 98.0 F 01/15/17 08:25 Pulse Rate 76 01/14/17 21:34 Respiratory Rate 18 01/15/17 08:25 Blood Pressure 137/67 01/15/17 08:25 Pulse Oximetry 98 01/15/17 08:25 <Richard Brady - 01/15/17 14:17> Temperature 98.1 F 01/14/17 07:30 Pulse Rate 62 01/14/17 07:30 Respiratory Rate 16 01/14/17 07:30 Blood Pressure 141/79 H 01/14/17 07:30 Pulse Oximetry 94 01/14/17 07:30 <Stephanie Crum - 01/14/17 13:09> - Constitutional no acute distress, obese, cooperative <Stephanie Crum - 01/14/17 16:37> - Routine HEENT Exam Head: Present: normocephalic <Stephanie Crum - 01/14/17 16:37> ENT: Present: mucous membranes moist <Stephanie Crum - 01/14/17 16:37> - Routine Neck Exam Absent: JVD, carotid bruit <Stephanie Crum - 01/14/17 16:37> - Routine Chest/Breast/Axilla Exam Chest wall: Absent: tenderness <Stephanie Crum - 01/14/17 16:37> - Routine Respiratory Exam Present: CTA bilaterally. Absent: rales, wheezes <Stephanie Crum - 01/14/17 16:37> - Routine Cardiovascular Exam Present: RRR, murmur. Absent: JVD <Stephanie Crum - 01/14/17 16:37> - Routine Abdominal Exam Present: soft, normoactive bowel sounds <Stephanie Crum - 01/14/17 16:37> - Routine Extremities Exam Present: no edema <Stephanie Crum 01/14/17 16:37> - Routine Skin Exam Present: intact, dry, warm <Stephanie Crum 01/14/17 16:37> - Routine Neurological Exam Present: alert, oriented X3 <Stephanie Crum 01/14/17 16:37> - Routine Psychiatric Exam Present: normal affect, normal thought process <Stephanie Crum 01/14/17 16: 37> Results 01/15/17 04:47 01/15/17 06:39 <Richard Brady - 01/15/17 14:17> Cardiac Enzymes 01/15/17 Range/Units 06:39 Troponin I < 0.012 (0-0.12) ng/ml CBC 01/15/17 Range/Units 04:47 WBC 5.2 (4.5-11.0) T/MM3 RBC 3.87 L (4.00-5.20) M/MM3 Hgb 12.0 (12-16) GM/DL Hct 34.7 L (36-46) % Plt Count 237 (130-400) T/MM3 Neut # 2.5 (1.8-7.7) T/MM3 Lymph # 1.5 (1-4.8) T/MM3 [place] # 0.7 (0-0.8) T/MM3 Eos # 0.4 (0-0.5) T/MM3 Baso # 0.0 (0-0.2) T/MM3 Comprehensive Metabolic Panel 01/15/17 Range/Units 06:39 Sodium 142 (134-144) MEQ/L Potassium 4.2 (3.6-5) MEQ/L Chloride 101 (98-107) MEQ/L Carbon Dioxide 28 (22-30) MEQ/L BUN 19.0 H (7-17) MG/DL Creatinine 0.9 (0.7-1.2) MG/DL Glucose 113 H (65-110) MG/DL Calcium 9.7 (8.4-10.2) MG/DL Intake and Output 01/14/17 01/15/17 01/15/17 22:59 06:59 14:59 Intake Total 240 / 240 Balance 240 / 240 Intake: Oral 240 / 240 Other: Urine Appearance Clear Urine Color Yellow Size of Bowel Movement Small # Voids 1 1 # Incontinent Voids 0 # Bowel Movements 1 Weight 76.4 kg <Ingris Bradysein - 01/15/17 14:17> CBC 01/14/17 Range/Units 04:54 WBC 4.7 (4.5-11.0) T/MM3 RBC 4.01 (4.00-5.20) M/MM3 Hgb 11.8 L (12-16) GM/DL Hct 36.7 (36-46) % Plt Count 247 (130-400) T/MM3 Neut # 2.6 (1.8-7.7) T/MM3 Lymph # 1.2 (1-4.8) T/MM3 [place] # 0.6 (0-0.8) T/MM3 Eos # 0.4 (0-0.5) T/MM3 Baso # 0.0 (0-0.2) T/MM3 Comprehensive Metabolic Panel 01/14/17 Range/Units 04:54 Sodium 143 (134-144) MEQ/L Potassium 3.8 (3.6-5) MEQ/L Chloride 101 (98-107) MEQ/L Carbon Dioxide 28 (22-30) MEQ/L BUN 21.0 H (7-17) MG/DL Creatinine 0.8 (0.7-1.2) MG/DL Glucose 109 (65-110) MG/DL Calcium 9.6 (8.4-10.2) MG/DL Intake and Output 01/13/17 01/14/17 01/14/17 22:59 06:59 14:59 Intake Total 120 / 120 320 / 320 Balance 120 / 120 320 / 320 Intake: Oral 120 / 120 320 / 320 Laboratory Results - last 24 hr 01/13/17 01/13/17 01/14/17 17:23 21:12 04:54 WBC 4.7 RBC 4.01 Hgb 11.8 L Hct 36.7 MCV 91.5 MCH 29.4 MCHC 32.2 RDW Std Deviation 45.2 Plt Count 247 MPV 11.2 Immature Gran % (Auto) 0.4 Neut % (Auto) 54.5 Lymph % (Auto) 25.5 [place] % (Auto) 11.8 H Eos % (Auto) 7.8 H Baso % (Auto) 0.0 Neut # 2.6 Lymph # 1.2 [place] # 0.6 Eos # 0.4 Baso # 0.0 Abs Immat Gran (auto) 0.02 Turbidity Sodium Potassium Chloride Carbon Dioxide Anion Gap BUN Creatinine GFR Calculation BUN/Creatinine Ratio Glucose Glucometer 129 168 Calculated Osmolality Calcium Icterus Index Troponin I Specimen Hemolysis Stool Occult Blood 01/14/17 01/14/17 01/14/17 04:54 12:06 13:32 WBC RBC Hgb Hct MCV MCH MCHC RDW Std Deviation Plt Count MPV Immature Gran % (Auto) Neut % (Auto) Lymph % (Auto) [place] % (Auto) Eos % (Auto) Baso % (Auto) Neut # Lymph # [place] # Eos # Baso # Abs Immat Gran (auto) Turbidity < 20 Sodium 143 Potassium 3.8 Chloride 101 Carbon Dioxide 28 Anion Gap 14 BUN 21.0 H Creatinine 0.8 GFR Calculation 71 BUN/Creatinine Ratio 26 Glucose 109 Glucometer 105 Calculated Osmolality 279 Calcium 9.6 Icterus Index < 2 Troponin I < 0.012 Specimen Hemolysis < 15 < 15 Stool Occult Blood 01/14/17 14:48 WBC RBC Hgb Hct MCV MCH MCHC RDW Std Deviation Plt Count MPV Immature Gran % (Auto) Neut % (Auto) Lymph % (Auto) [place] % (Auto) Eos % (Auto) Baso % (Auto) Neut # Lymph # [place] # Eos # Baso # Abs Immat Gran (auto) Turbidity Sodium Potassium Chloride Carbon Dioxide Anion Gap BUN Creatinine GFR Calculation BUN/Creatinine Ratio Glucose Glucometer Calculated Osmolality Calcium Icterus Index Troponin I Specimen Hemolysis Stool Occult Blood Positive A <Stephanie Crum - 01/14/17 16:37> EKG interpretations - Dysrhythmias Sinus rhythms and dysrhythmias: sinus rhythm <Stephanie Crum - 01/14/17 16:37> Assessment and Plan - Attestation Attestation Narrative: 01/15/17 14:17 Recommendation After examining the patient I agree with the above assessment. I am involved in the formulation of the patient's plan of care. <Richard Brady - 01/15/17 14:17> - Assessment and Plan (1) Left pontine CVA Current visit: Yes Status: Acute (2) DM type 2 (diabetes mellitus, type 2) Current visit: Yes Status: Chronic (3) Status post total right knee replacement Current visit: Yes Status: Chronic (4) Benign essential hypertension Current visit: Yes Status: Chronic (5) Mixed hyperlipidemia Current visit: Yes Status: Chronic (6) Aortic stenosis Current visit: Yes Status: Chronic (7) Angina pectoris Current visit: Yes Status: Acute <Richard Brady - 01/15/17 14:17> (1) Aortic stenosis Current visit: Yes Status: Chronic by Dr. Brady's exam. Obtain echo for valvular and structural disease. Telemetry please. (2) Left pontine CVA Current visit: Yes Status: Acute Continue Plavix (3) Benign essential hypertension Current visit: Yes Status: Chronic Continue Amlodipine, Lisinopril and Triamterene/ HCTZ (4) DM type 2 (diabetes mellitus, type 2) Current visit: Yes Status: Chronic per hospitalist (5) Mixed hyperlipidemia Current visit: Yes Status: Chronic Continue Atorvastatin (6) Status post total right knee replacement Current visit: Yes Status: Chronic (7) Angina pectoris Current visit: Yes Status: Acute Associated with ? or CAD? Obtain echo for valvular and structural disease. Telemetry please. <Stephanie Crum - 01/15/17 12:15> Hospital Course Summary Disclaimer: The visit summary below is not to be considered part of the above Progress Note. <Richard Brady - 01/15/17 14:17> The visit summary below is not to be considered part of the above Progress Note. <Stephanie Crum - 01/14/17 13:09>
--- NOTE | 2017-01-14 15:06 | Progress Note ---
<Elba Sanders - Last Filed: 01/14/17 15:01> Subjective: Luan is seen today in follow up for her recent CVA. She is seen while ambulating in the hallway with her walker and assistance close by. She states she is doing wonderful today and is very pleased with her progress with therapy. She is in good spirits today and has been very motivated with her therapy today. Nursing notes were reviewed and indicate that she has had some increased anxiety which she reports is better today because "all her tests are negative" pertaining to her recent Doppler US and knee x-ray. She does continue to complain of occasional indigestion and belching which she states is improved with the addition of the Zantac. She states that her symptoms are similar to previous symptoms she has had and admits to taking Nexium at home, which helps, when she has the money for it. She denies any fevers, chills, chest pain, shortness of breath, abdominal pain, nausea, vomiting or dysuria. Her pain has been well controlled. Appetite is stable and bowels are moving. Review of her recent labs today revealed new anemia with hemoglobin at 11.8 and increase in her BUN. Blood sugars are well controlled. Blood pressure remains liable and she admits to feeling dizzy occasionally with standing and walking. Objective Vital signs: Temperature 98.1 F 01/14/17 07:30 Pulse Rate 81 01/14/17 12:54 Respiratory Rate 16 01/14/17 07:30 Blood Pressure 117/65 01/14/17 12:55 Pulse Oximetry 94 01/14/17 07:30 Height/Weight/BMI: Height 5 ft 2 in Weight 169 lb 15.622 oz Body Mass Index 31.1 - Constitutional Present: no acute distress, well nourished, well developed, cooperative - Routine HEENT Exam Head: Present: normocephalic, atraumatic Eye: Present: PERRL. Absent: conjunctival icterus ENT: Present: mucous membranes moist - Routine Respiratory Exam Present: CTA bilaterally - Routine Cardiovascular Exam Present: RRR, S1, S2, murmur - Routine Abdominal Exam Present: soft, normoactive bowel sounds, non distended, non tender - Routine Extremities Exam Present: no edema, full ROM, pulses intact Comments: ambulating with walker on exam - Routine Back/Spine/Pelvis Exam Back/Spine: Present: full ROM - Routine Musculoskeletal Exam Musculoskeletal: Present: moving extremities well - Routine Skin Exam Present: intact, dry, warm. Absent: jaundice Comments: afebrile - Routine Neurological Exam Present: alert, oriented X3, moving all extremities, normal speech - Routine Lymphatic Exam Lymphatic: Absent: lymphedema - Routine Psychiatric Exam Present: cooperative Results - Labs CBC & Chem 7: 01/14/17 04:54 01/14/17 04:54 Assessment and Plan (1) Left pontine CVA Current visit: Yes Status: Acute DVT Prophylaxis: Lovenox, other (Plavix) GI Prophylaxis: Protonix, Rantidine Resuscitation Status: Do Not Resuscitate Assessment and Plan: 01/13/2017-Dr. 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 Continue to encourage participation in therapies for strengthening and improvement in functional abilities. She continues to complain of indigestion and belching. Some improvement with Zantac. She reports using Nexium at home when she can afford it. Will initiate Protonix in addition to Zantac for additional relief. Prior EGD in 2011 revealed gastritis. No known history of ulcers. Blood pressure is still a little labile. Given her recent CVA with known CAD and persistent, episodic belching and indigestion, will consult Dr. Brady for further evaluation and recommendations. Appreciate their time and expertise. May consider surgical consult as outpatient for endoscopy evaluation. Blood sugars are well controlled. Continue to monitor closely. New anemia noted with Hgb at 11.8 and slight increase in BUN at 21, concerning for acute bleed. Given increased indigestion, current anticoagulation with new anemia, will check fecal Hemoccult and recheck CBC and BMP in AM to monitor blood counts, electrolytes and renal function closely. Patient reports some dizziness/lightheadedness with standing. Will obtain orthostatic vitals signs and monitor closely. - Time spent with patient 25 - 35 minutes Hospital Course Summary Disclaimer: The visit summary below is not to be considered part of the above Progress Note. 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 Continue meclizine for dizziness. PT/OT orders per Dr. Gonzalez. Recommend reassessment by speech given her reported improvement in speech and swallow ability. KDur for hypokalemia. HTN - Norvasc 10 mg; Lisinopril 40 mg; Maxzide [facility] records reviewed - I asked nurses to verify home meds so we know which medications she will need Rx at time of discharge. Pneumococcal vaccine given. 01/09/17 Add Neurontin 100 mg and Flexeril 5 mg HS to help with sciatic pain. Constipation - prefers to try prune juice but will add PRN bowel aids in case she needs them. BP moderately elevated - permissive HTN in setting of acute stroke. Continue with current antiHTN. BGM - good control. 01/11/17 Reviewed external medication list. She was recently increased to Prozac 30 mg daily. She also uses Clonazepam 0.5 mg several times during the day and once at night. Will add the night dose to help with sleeping. Noted she was recently prescribed Ambien. Nursing staff calls following exam to reports she is now complaining of indigestion and shoulder pain. Obtain EKG and Troponin at this time. Continue with Flexeril and gabapentin for pain control Encouraged patient to work with PT/OT as she does noted improvements in right hand strength. 01/12/17: Overall, Luan is making good gains in therapy and with her strength. Continue to encourage participation in therapies and provide safe and supportive environment. Concern regarding increased pain to posterior thigh and calf with increased swelling to right knee and mild erythema to right knee. US obtain and was negative for DVT. Patient reports that she had her knee replaced in November and injured it when she fell 3 weeks ago. Clicking sensation noted to medial aspect of right knee which patient reports is knee. Will obtain knee x-ray and consult ortho for further evaluation and treatment recommendations. Appreciate their time and expertise. Due to patient concerns and strong requests, she was initiated on a z-pack for suspected sinus infection by Dr. Gonzalez. Monitor closely for additional signs of respiratory infections. Antibiotic to be complete on 01/16. Patient complained of indigestion and shoulder pain yesterday afternoon. Troponin was negative at <0.012. No pain or concerns currently. Continue with medication for GERD and GI protection. Continue with Flexeril and gabapentin for pain control. Continue mediations for bowel motivation. 01/12: [place]. 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 Continue to encourage participation in therapies and provide safe and supportive environment. Concern regarding increased pain to posterior thigh and calf with increased swelling to right knee and mild erythema to right knee. US obtain and was negative for DVT. Patient reports that she had her knee replaced in November and injured it when she fell 3 weeks ago. Clicking sensation noted to medial aspect of right knee which patient reports is knee. Will obtain knee x-ray and consult ortho for further evaluation and treatment recommendations. Appreciate their time and expertise. Due to patient concerns and strong requests, she was initiated on a z-pack for suspected sinus infection by Dr. Gonzalez. Monitor closely for additional signs of respiratory infections. Antibiotic to be complete on 01/16. Patient complained of indigestion and shoulder pain yesterday afternoon. Troponin was negative at <0.012. No pain or concerns currently. Continue with medication for GERD and GI protection. Continue with Flexeril and gabapentin for pain control. Continue mediations for bowel motivation. 01/14/17. Plan Overall, the patient is showing good improvement with her weakness, especially in the right upper extremity. Continue to encourage participation in therapies for strengthening and improvement in functional abilities. She continues to complain of indigestion and belching. Some improvement with Zantac. She reports using Nexium at home when she can afford it. Will initiate Protonix in addition to Zantac for additional relief. Prior EGD in 2011 revealed gastritis. No known history of ulcers. Blood pressure is still a little labile. Given her recent CVA with known CAD and persistent, episodic belching and indigestion, will consult Dr. Brady for further evaluation and recommendations. Appreciate their time and expertise. May consider surgical consult as outpatient for endoscopy evaluation. Blood sugars are well controlled. Continue to monitor closely. New anemia noted with Hgb at 11.8 and slight increase in BUN at 21, concerning for acute bleed. Given increased indigestion, current anticoagulation with new anemia, will check fecal Hemoccult and recheck CBC and BMP in AM to monitor blood counts, electrolytes and renal function closely. Patient reports some dizziness/lightheadedness with standing. Will obtain orthostatic vitals signs and monitor closely.01/14/17 15:13 <Xiomy Hirsch - Last Filed: 01/15/17 20:38> Objective Vital signs: Temperature 97.9 F 01/15/17 16:34 Pulse Rate 77 01/15/17 16:34 Respiratory Rate 18 01/15/17 16:34 Blood Pressure 152/75 H 01/15/17 16:34 Pulse Oximetry 99 01/15/17 16:34 Height/Weight/BMI: Height 1.57 m Weight 76.4 kg Body Mass Index 31.1 Results - Labs CBC & Chem 7: 01/15/17 04:47 01/15/17 06:39 Assessment and Plan (1) Left pontine CVA Current visit: Yes Status: Acute Assessment and Plan: 01/15/2017-I reviewed this chart, the patient history, and the [employer]'s/PA's documented findings as above. We discussed and formulated the assessment and plan as above with the additions below.-Dr. Hirsch Please see my note dictated 01/15/2017. Hospital Course Summary Disclaimer: The visit summary below is not to be considered part of the above Progress Note.
[2017-01-14] MEDS: ATORVASTATIN 40 MG TABLET PO SCH (21:07)
[2017-01-14] MEDS: RANITIDINE 150 MG TABLET PO SCH (21:08)
[2017-01-14] MEDS: GABAPENTIN 100 MG CAPSULE PO SCH (21:08)
[2017-01-14] MEDS: MAG-AL + SIM ORAL LIQUID 30ml PO PRN (21:24)
[2017-01-15] MEDS: LEVOTHYROXINE 50 MCG TABLET PO SCH (06:15)
[2017-01-15] MEDS: HYDROCODONE/APAP 5mg/325mg TABLET PO PRN ×3 (06:28→20:38)
[2017-01-15] MEDS: PANTOPRAZOLE 20 MG TABLET PO SCH (06:28)
[2017-01-15] MEDS: AZITHROMYCIN 250 MG TABLET PO SCH (06:28)
--- NOTE | 2017-01-15 08:55 | IRU Progress Note ---
- Subjective/Serverity of Illness Luan was evaluated in her room today. She has had the development of several more medical issues,. We discussed these in detail. She had been complaining of some nonspecific low chest discomfort. Had a cardiology evaluation. Echocardiogram done due to murmur as well. Official reading is pending but I reviewed and this shows normal contractility with ejection fraction of 80%. Does have mitral regurgitation, tricuspid regurgitation with estimated right ventricular systolic pressure of around 49 mmHg. Has only minimal aortic stenosis with a minimal gradient of 23 mmHg and a peak velocity of 2.14 m/s. E to A ratio is reversed consistent with decreased left ventricular compliance. She reports that her discomfort is more in her abdomen and less in her chest. Also reports some black stool yesterday. However I visit with the nurse who observed the same bowel movement and she states it was brown and not black. Stool was tested for Hemoccult and is positive. Hemoglobin essentially is stable however. She has been having no nausea no vomiting. Today her abdomen is totally benign and soft and nontender. Otherwise the knee is improving. It is much less red. She is improving with therapies for both physical therapy and occupational therapy. She is concerned about her blood thinners and I reviewed this with her that she is on Plavix and Lovenox. She was seen by psychiatry. Prozac was increased. Update on medical conditions as follows: 1. Acute CVA Left Devante, ischemic with neg carotids and echo: Neurologically she is stable in this regard. 2. DM II: She is on oral agents. Her blood sugars are reasonably well- controlled. These are reviewed and continue to be stable. 3. Hypertension: She is on oral agents for her hypertension. Her blood pressure is quite variable and likely related to her emotional status. It is running too high at times. 4. Dysphagia: She has been evaluated and is followed by speech therapy. She has some weakness at the base of her tongue. Speech therapy continues to work with patient. 5. Dizziness: She reports subacute to chronic "dizziness." Appears to be stable. No new symptoms are reported in this regard. 6. Depression: Was seen by psychiatry and her Prozac was increased to 40 mg daily. 7. Right knee pain: This is stable. The white count is normal. No evidence of infection in the redness is improved. Knee discomfort is improved. Is followed by orthopedics as well. 8. Possible acute sinusitis with headache: She is on azithromycin per her request. 9. Chest discomfort: Has been evaluated by cardiology. Echocardiogram was done with results as noted above. Her electrocardiogram showed nonspecific changes. Exam Vital Signs: Temperature 98.0 F 01/15/17 08:25 Pulse Rate 76 01/14/17 21:34 Respiratory Rate 18 01/15/17 08:25 Blood Pressure 137/67 01/15/17 08:25 Pulse Oximetry 98 01/15/17 08:25 Height/Weight/BMI: Height 1.57 m Weight 76.4 kg Body Mass Index 31.1 Comments: The patient is awake, alert and oriented and in no acute distress. She is less anxious today. Less tearful as well. Pupils are equal. The neck is supple. Chest: Clear to auscultation bilaterally. Cor: RR with no gallop, click . Has systolic murmur left sternal border and second right interspace. I do not hear a gallop. Abd: soft with normo-active bowel sounds. There are no masses, no tenderness and no guarding. Extremities: No edema is noted. Exam of the right knee continues to demonstrate minimal warmth and no significant redness. It seems to be healing up nicely. Continues to have difficulty with total extension at the knee. Results IRU - Labs Labs: Reviewed hemoglobin which is stable. Still Hemoccult positive but nurse reports there was some bright red blood around the brown stool. I do not think she has had melena. I would attribute this possibly to hemorrhoids. IRU A/P (1) Left pontine CVA Current visit: Yes Status: Acute She is stable from a neurologic standpoint. Remains on Plavix. (2) DM type 2 (diabetes mellitus, type 2) Qualifiers: Diabetes mellitus complication status: without complication Diabetes mellitus half-way insulin use: without half-way use Qualified Code(s): E11.9 - Type 2 diabetes mellitus without complications Current visit: Yes Status: Chronic Blood sugars reviewed and are reasonably stable. (3) Status post total right knee replacement Current visit: Yes Status: Chronic (4) Benign essential hypertension Current visit: Yes Status: Chronic (5) Mixed hyperlipidemia Current visit: Yes Status: Chronic (6) Sciatica of right side Current visit: Yes Status: Acute (7) Depression Qualifiers: Depression Type: major depressive disorder Major depression recurrence: recurrent Active/Remission status: currently active Major depression episode severity: severe Psychotic features: without psychotic features Qualified Code(s): F33.2 - Major depressive disorder, recurrent severe without psychotic features Current visit: No Status: Chronic Prozac increased by psychiatry. (8) Osteoarthritis of knee Qualifiers: Osteoarthritis type: primary Laterality: right Qualified Code(s): M17.11 - Unilateral primary osteoarthritis, right knee Current visit: Yes Status: Chronic She is status post right total knee replacement. The knee is doing well. (9) Angina pectoris Current visit: Yes Status: Acute Diagnosis per cardiology. Today I do not elicit symptoms of chest discomfort. Echocardiogram shows normal contractility and wall motion with left ventricular hypertrophy. Ejection fraction around 80%. Mild aortic stenosis DVT Prophylaxis: Lovenox, other (Plavix) Resuscitation Status: Do Not Resuscitate - Course Hospital Course: Josiah Gonzalez MD: 01/11/17 10:21 Continues to progress with therapy. Dysphagia with minimal impairment. She is emotionally labile and anxious. 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 Considered use of Nuedexta but likely not able to afford it when she gets out. In addition we would have to cut back on current antidepressants. Continues to complain of right hip and low back pain and discomfort consistent with sciatica. Blood pressure a bit elevated. 01/12/17 10:40 She would like an antibiotic for her sinuses. Advised to resume her may not be of benefit. We will try a Z-Donnie due to discolored drainage. Blood pressures are improved. Continues to be emotionally labile and anxious with probable pseudobulbar affect. We will check a venous Doppler due to more swelling and redness involving the right knee. We'll check a white count although she is able to bend the knee fairly well so that would argue against primary knee joint infection. May be more red and puffy just because she is using it more. 01/13/17 11:[address] Lainez's evaluation of her knee which appears to be stable. White count is normal and there is no evidence of infection. Venous Doppler negative. Continues to experience weakness on the right side as anticipated from her stroke. It is not worse. She is neurologically stable and remains on Plavix. Continues to be very tearful and anxious and psychiatry is been consulted. 01/15/17 08:59 Patient is progressing with therapy. Prozac is been increased to 40 mg. Report of melena on the part of the patient but not confirmed by nursing. Hemoglobin is stable. Stool Hemoccult positive but there was some bright red blood consistent with perirectal disease. Has been seen by cardiology with diagnosis of angina. Echo with results as noted. - Interventions to Obtain Goals PT Treatment Plan: Balance/Proprioception, Functional Activities, Gait Training , Patient/Family Education, Therapeutic Exercise OT Treatment Plan: ADL (Basic Care), Balance Training, IADL, Pt./Family Education, Ther. Exercise for ADL, UE Functional Training Goals Progress/Modifications: Time spent with patient and on floor reviewing data and documentin minutes Barriers to dismissal: Right sided weakness, pain in right knee Medical decision-making: Reviewed white amount of data in terms of her angina, echocardiogram, stool Hemoccult. Discussed with nurse. Issues of GI bleeding considered although I think this is perirectal disease. Does not appear to have unstable angina at present. Echocardiogram shows only mild aortic stenosis. Normal contractility and wall motion. Left ventricular hypertrophy noted. Tolerating therapy well and is making progress.
[2017-01-15] MEDS: GlipiZIDE 5 MG TABLET PO SCH ×2 (09:16→18:12)
[2017-01-15] MEDS: MECLIZINE 12.5 MG TABLET PO SCH ×4 (09:16→20:40)
[2017-01-15] MEDS: ENOXAPARIN 40 MG/0.4 ML INJECTION SQ SCH (09:18)
[2017-01-15] MEDS: CYCLOBENZAPRINE 5 MG TABLET PO SCH ×2 (09:18→20:40)
[2017-01-15] MEDS: ClonazePAM 0.5 MG TABLET PO SCH ×2 (09:18→20:40)
[2017-01-15] MEDS: TRIAMTERENE/HCTZ 37.5 MG-25 MG TABLET PO SCH (09:19)
[2017-01-15] MEDS: AMLODIPINE 10 MG TABLET PO SCH (09:19)
[2017-01-15] MEDS: POLYETHYL GLYCOL 3350 17gm PACKET PO SCH (09:19)
[2017-01-15] MEDS: LISINOPRIL 40 MG TABLET PO SCH (09:20)
[2017-01-15] MEDS: CLOPIDOGREL 75 MG TABLET PO SCH (09:20)
[2017-01-15] MEDS: FLUoxetine 20 MG CAPSULE PO SCH (09:20)
[2017-01-15] MEDS: ATORVASTATIN 40 MG TABLET PO SCH (20:39)
[2017-01-15] MEDS: RANITIDINE 150 MG TABLET PO SCH (20:39)
[2017-01-15] MEDS: GABAPENTIN 100 MG CAPSULE PO SCH (20:40)
--- NOTE | 2017-01-15 20:41 | Progress Note ---
Subjective: The patient was seen in her room this evening. I had spoken with Dr. Brady who stated that he was concerned that her chest discomfort could be angina. He stated her echocardiogram was concerning for possible aortic stenosis. She is refusing to see him or let him discuss his findings or recommendations with her. I came and talked to the patient and she continues to have occasional heartburn. Otherwise, she states she is doing well and continuing to progress with therapy. She states she does not want to think about having any cardiac problems. I told her we wanted to rule out other medical issues that might cause another stroke and try to decrease her risk for recurrent stroke or cardiac problems. She stated that she understood this but she does not want to talk about it at this time. She states she is willing to think about it. She denies any other complaints and becomes tearful. Objective Vital signs: Temperature 97.9 F 01/15/17 16:34 Pulse Rate 77 01/15/17 16:34 Respiratory Rate 18 01/15/17 16:34 Blood Pressure 152/75 H 01/15/17 16:34 Pulse Oximetry 99 01/15/17 16:34 Height/Weight/BMI: Height 1.57 m Weight 76.4 kg Body Mass Index 31.1 Comments: GEN-tearful, anxious CV-regular rate and rhythm, 2/6 systolic murmur CHEST-clear to auscultation ABD-soft with positive bowel sounds -no Granda EXT-no edema NEURO-weakness in her right upper extremity is markedly improved SKIN-warm and dry and without rashes Results - Labs CBC & Chem 7: 01/15/17 04:47 01/15/17 06:39 Assessment and Plan (1) Left pontine CVA Current visit: Yes Status: Acute Assessment and Plan: ASSESSMENT Possible angina -refusing to discuss with cardiology Possible aortic stenosis on echocardiogram, Dr. Brady was recommending a BRITTANY. 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 Weakness is improving. She continues to have occasional "heartburn" but it is improved. It's possible that these symptoms are angina. I did try to encourage her to at least talk with the financial services intern about findings and recommendations, but she refused. She states she doesn't want to hear any other bad news. Blood sugars are doing well. Vital signs have been fairly stable. Continue with current treatment. I strongly recommend the patient discuss findings with cardiology. Regarding Hemoccult-positive stool, stools were reported as being brown and one had some red blood. Patient is no longer anemic. Consider workup as an outpatient Hospital Course Summary Disclaimer: The visit summary below is not to be considered part of the above Progress Note. 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 Continue meclizine for dizziness. PT/OT orders per Dr. Gonzalez. Recommend reassessment by speech given her reported improvement in speech and swallow ability. KDur for hypokalemia. HTN - Norvasc 10 mg; Lisinopril 40 mg; Maxzide [facility] records reviewed - I asked nurses to verify home meds so we know which medications she will need Rx at time of discharge. Pneumococcal vaccine given. 01/09/17 Add Neurontin 100 mg and Flexeril 5 mg HS to help with sciatic pain. Constipation - prefers to try prune juice but will add PRN bowel aids in case she needs them. BP moderately elevated - permissive HTN in setting of acute stroke. Continue with current antiHTN. BGM - good control. 01/11/17 Reviewed external medication list. She was recently increased to Prozac 30 mg daily. She also uses Clonazepam 0.5 mg several times during the day and once at night. Will add the night dose to help with sleeping. Noted she was recently prescribed Ambien. Nursing staff calls following exam to reports she is now complaining of indigestion and shoulder pain. Obtain EKG and Troponin at this time. Continue with Flexeril and gabapentin for pain control Encouraged patient to work with PT/OT as she does noted improvements in right hand strength. 01/12/17: Overall, Luan is making good gains in therapy and with her strength. Continue to encourage participation in therapies and provide safe and supportive environment. Concern regarding increased pain to posterior thigh and calf with increased swelling to right knee and mild erythema to right knee. US obtain and was negative for DVT. Patient reports that she had her knee replaced in November and injured it when she fell 3 weeks ago. Clicking sensation noted to medial aspect of right knee which patient reports is knee. Will obtain knee x-ray and consult ortho for further evaluation and treatment recommendations. Appreciate their time and expertise. Due to patient concerns and strong requests, she was initiated on a z-pack for suspected sinus infection by Dr. Gonzalez. Monitor closely for additional signs of respiratory infections. Antibiotic to be complete on 01/16. Patient complained of indigestion and shoulder pain yesterday afternoon. Troponin was negative at <0.012. No pain or concerns currently. Continue with medication for GERD and GI protection. Continue with Flexeril and gabapentin for pain control. Continue mediations for bowel motivation. 01/12: [place]. 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 Continue to encourage participation in therapies and provide safe and supportive environment. Concern regarding increased pain to posterior thigh and calf with increased swelling to right knee and mild erythema to right knee. US obtain and was negative for DVT. Patient reports that she had her knee replaced in November and injured it when she fell 3 weeks ago. Clicking sensation noted to medial aspect of right knee which patient reports is knee. Will obtain knee x-ray and consult ortho for further evaluation and treatment recommendations. Appreciate their time and expertise. Due to patient concerns and strong requests, she was initiated on a z-pack for suspected sinus infection by Dr. Gonzalez. Monitor closely for additional signs of respiratory infections. Antibiotic to be complete on 01/16. Patient complained of indigestion and shoulder pain yesterday afternoon. Troponin was negative at <0.012. No pain or concerns currently. Continue with medication for GERD and GI protection. Continue with Flexeril and gabapentin for pain control. Continue mediations for bowel motivation.
[2017-01-15] MEDS: MAG-AL + SIM ORAL LIQUID 30ml PO PRN (20:52)
[2017-01-16] MEDS: PANTOPRAZOLE 20 MG TABLET PO SCH (07:00)
[2017-01-16] MEDS: AZITHROMYCIN 250 MG TABLET PO SCH ×2 (07:00→08:17)
[2017-01-16] MEDS: LEVOTHYROXINE 50 MCG TABLET PO SCH (07:00)
[2017-01-16] MEDS: ClonazePAM 0.5 MG TABLET PO SCH ×2 (08:17→22:08)
[2017-01-16] MEDS: CYCLOBENZAPRINE 5 MG TABLET PO SCH ×3 (08:18→22:08)
[2017-01-16] MEDS: HYDROCODONE/APAP 5mg/325mg TABLET PO PRN ×2 (08:18→18:09)
[2017-01-16] MEDS: MECLIZINE 12.5 MG TABLET PO SCH ×3 (08:18→22:08)
[2017-01-16] MEDS: ENOXAPARIN 40 MG/0.4 ML INJECTION SQ SCH (08:18)
[2017-01-16] MEDS: TRIAMTERENE/HCTZ 37.5 MG-25 MG TABLET PO SCH (08:19)
[2017-01-16] MEDS: POLYETHYL GLYCOL 3350 17gm PACKET PO SCH (08:19)
[2017-01-16] MEDS: AMLODIPINE 10 MG TABLET PO SCH (08:19)
[2017-01-16] MEDS: CLOPIDOGREL 75 MG TABLET PO SCH (08:20)
[2017-01-16] MEDS: LISINOPRIL 40 MG TABLET PO SCH (08:20)
[2017-01-16] MEDS: FLUoxetine 20 MG CAPSULE PO SCH (08:20)
[2017-01-16] MEDS: GlipiZIDE 5 MG TABLET PO SCH ×2 (08:21→18:07)
[2017-01-16] MEDS: MAG-AL + SIM ORAL LIQUID 30ml PO PRN (19:15)
--- NOTE | 2017-01-16 20:18 | Echocardiogram ---
DATE OF PROCEDURE January 14, 2017 REFERRING PHYSICIAN Xiomy Hirsch MD This is a two-dimensional echo with spectral Doppler, color-flow and M-mode. It was obtained in a patient with chest pain. Left atrium is dilated. Left ventricle end-diastolic dimension is normal. Left ventricle wall thickness increased with posterior wall at 1.9 cm and septum at 1.4 cm. LV systolic function is hyperdynamic with ejection fraction of about 75%. Right atrium is dilated. Right ventricle is normal. Aortic root dimension is normal. Mitral annulus is calcified. Mitral valve leaflets are normal with mild mitral regurgitation. Aortic valve was not visualized well however it appears to show some fibrocalcific changes. Transaortic velocities are increased and there could be velocities across the left ventricular outflow tract. Peak velocity across the left ventricular outflow tract/aortic valve is at 2.42 m/sec with a peak gradient of 23 and mean gradient of 16. Aortic valve area is calculated at 0.83 cm2. There is no aortic insufficiency. Tricuspid valve shows mild tricuspid regurgitation with moderate pulmonary hypertension with estimated pulmonary artery systolic pressure of 44. Pulmonary valve shows no pulmonary insufficiency. There is no pericardial effusion. Left ventricular outflow velocities are increased with Valsalva maneuver. IMPRESSION 1. Hyperdynamic left ventricle with ejection fraction of about 75%. 2. Biatrial dilation. 3. Left ventricular hypertrophy. 4. Aortic stenosis versus increased velocity across left ventricular outflow tract. Velocities are peaked at 2.42 m/sec. Valve area is calculated at 0.83 cm2. 5. Mild tricuspid regurgitation. 6. Trace pulmonary insufficiency. The patient may require further evaluation such as BRITTANY for evaluation of the aortic valve and left ventricular outflow tract. MTDD
[2017-01-16] MEDS: ATORVASTATIN 40 MG TABLET PO SCH (22:08)
[2017-01-16] MEDS: GABAPENTIN 100 MG CAPSULE PO SCH (22:08)
[2017-01-16] MEDS: RANITIDINE 150 MG TABLET PO SCH (22:09)
[2017-01-17] MEDS: LEVOTHYROXINE 50 MCG TABLET PO SCH (05:49)
[2017-01-17] MEDS: PANTOPRAZOLE 20 MG TABLET PO SCH (05:49)
[2017-01-17] MEDS: CYCLOBENZAPRINE 5 MG TABLET PO SCH ×2 (09:51→21:11)
[2017-01-17] MEDS: FLUoxetine 20 MG CAPSULE PO SCH (09:51)
[2017-01-17] MEDS: AMLODIPINE 10 MG TABLET PO SCH (09:51)
[2017-01-17] MEDS: TRIAMTERENE/HCTZ 37.5 MG-25 MG TABLET PO SCH (09:51)
[2017-01-17] MEDS: MECLIZINE 12.5 MG TABLET PO SCH ×3 (09:51→21:09)
[2017-01-17] MEDS: CLOPIDOGREL 75 MG TABLET PO SCH (09:51)
[2017-01-17] MEDS: HYDROCODONE/APAP 5mg/325mg TABLET PO PRN ×2 (09:52→21:09)
[2017-01-17] MEDS: ENOXAPARIN 40 MG/0.4 ML INJECTION SQ SCH (09:52)
[2017-01-17] MEDS: ClonazePAM 0.5 MG TABLET PO SCH ×2 (09:52→21:10)
[2017-01-17] MEDS: GlipiZIDE 5 MG TABLET PO SCH ×2 (09:52→17:48)
[2017-01-17] MEDS: POLYETHYL GLYCOL 3350 17gm PACKET PO SCH (09:52)
[2017-01-17] MEDS: LISINOPRIL 40 MG TABLET PO SCH (09:53)
[2017-01-17] MEDS ORDERED: BENZOCAINE/MENTHOL SORE THROAT LOZENGE MM PRN (12:06)
[2017-01-17] MEDS: FLUTICASONE NASAL SPRAY 50mcg EA NOSTRIL SCH (14:01)
[2017-01-17] MEDS ORDERED: FALL RISK - PHARMACY CONSULT MC PRN (15:56)
--- NOTE | 2017-01-17 17:15 | Progress Note ---
Progress Note: Nursing notified hospitalist service of Luan's new complaint of scratchy sore throat and frontal headache similar to prior headaches with sinus congestion. She recently completed a z-pack prescribed at her insistence for a sinus infection. She remains afebrile and recent labs on 01/15 revealed stable WBC at 5.2. Her blood sugars have remained stable and well controlled. She was offered cough drops and Flonase for her nasal congestion which helped with her symptoms. Have discussed previously with her about initiating an antihistamine which she was reluctant to do. Would encourage continuing conservative treatment. Nursing also reports decrease in mood and lack of motivation over the weekend, with reluctance to go to the dining room for meals and then requesting to be wheeled in, instead of walking with her walker. Continue to encourage participation in floor activities and therapies to increase strength and functional abilities.
[2017-01-17 17:47] VITALS: RESP 18
[2017-01-17] MEDS: GABAPENTIN 100 MG CAPSULE PO SCH (21:09)
[2017-01-17] MEDS: ATORVASTATIN 40 MG TABLET PO SCH (21:09)
[2017-01-17] MEDS: RANITIDINE 150 MG TABLET PO SCH (21:11)
[2017-01-17] MEDS: MAG-AL + SIM ORAL LIQUID 30ml PO PRN (21:15)
[2017-01-18] MEDS: PANTOPRAZOLE 20 MG TABLET PO SCH (06:36)
[2017-01-18] MEDS: LEVOTHYROXINE 50 MCG TABLET PO SCH (06:36)
[2017-01-18 08:05] VITALS: BP 168/79; PULSE 70; TEMP 98.3; O2SAT 99
[2017-01-18] MEDS: CYCLOBENZAPRINE 5 MG TABLET PO SCH (08:22)
[2017-01-18] MEDS: MECLIZINE 12.5 MG TABLET PO SCH (08:22)
[2017-01-18] MEDS: FLUTICASONE NASAL SPRAY 50mcg EA NOSTRIL SCH (08:26)
--- NOTE | 2017-01-18 08:26 | Discharge Instructions ---
Discharge Plan - Med Rec/Dispo Referrals/Follow Up: Richard Brady MD [Physician] - 2 Weeks Additional Instructions: Follow up with Dr. Brady about abnormal echocardiogram. You may need further evaluation to look at your heart valves. You are being prescribed 2 different medications for GERD - you might be able to stop one of them in about a month. Please discuss with your PCP. Prozac dose increased to 40 mg daily (take 2 of your 20 mg tablets at home). Flonase for sinus drainage (if needed). Also added Meclizine (if needed for dizziness). Prescriptions: New FLUoxetine [Prozac] 40 mg PO DAILY #0 capsule Fluticasone Nasal [place] [Flonase] 2 spray EA NOSTRIL DAILY #1 bottle Pantoprazole Sodium [Protonix] 20 mg PO ACB #30 tablet. Ranitidine [Zantac] 150 mg PO HS #30 tab Meclizine [Antivert] 12.5 mg PO TID PRN #30 tab PRN Reason: Dizziness Continue glipiZIDE [Glipizide] 10 mg PO BIDWM #0 clonazePAM [Clonazepam] 0.5 mg PO DAILY Atorvastatin [Lipitor] 1 tab PO HS Levothyroxine Sodium 50 mcg PO ACB #0 Lisinopril [Prinivil] 40 mg PO DAILY Amlodipine [Norvasc] 10 mg PO DAILY Triamterene/Hydrochlorothiazid [Triamterene-Hctz 37.5-25 mg Tb] 1 cap PO DAILY Clopidogrel [Plavix] 1 tab PO DAILY Discontinued FLUoxetine [Prozac] 30 mg PO DAILY
[2017-01-18] MEDS: HYDROCODONE/APAP 5mg/325mg TABLET PO PRN (08:27)
[2017-01-18] MEDS: ClonazePAM 0.5 MG TABLET PO SCH (08:28)
[2017-01-18] MEDS: CLOPIDOGREL 75 MG TABLET PO SCH (08:28)
[2017-01-18] MEDS: FLUoxetine 20 MG CAPSULE PO SCH (08:28)
[2017-01-18] MEDS: GlipiZIDE 5 MG TABLET PO SCH (08:28)
[2017-01-18] MEDS: AMLODIPINE 10 MG TABLET PO SCH (08:28)
[2017-01-18] MEDS: ENOXAPARIN 40 MG/0.4 ML INJECTION SQ SCH (08:28)
[2017-01-18] MEDS: LISINOPRIL 40 MG TABLET PO SCH (08:29)
[2017-01-18] MEDS: TRIAMTERENE/HCTZ 37.5 MG-25 MG TABLET PO SCH (08:29)
[2017-01-18] MEDS: POLYETHYL GLYCOL 3350 17gm PACKET PO SCH (08:29)
--- NOTE | 2017-01-18 10:43 | IRU Progress Note ---
- Subjective/Serverity of Illness Luan was interviewed and examined in her room. She reports that she feels much better and feels good about going home. Has several questions for me today regarding her stroke etc. which I attempted to address. Her right sciatic pain continues to be an issue although it is improved. Her ability to transfer is improved as well as ambulate. Fine motor movement is significantly improved. Her previously noted headaches are much better. Sinus symptoms are improved as well. Anticipate that she will go home today with home health. Update on medical conditions as follows: 1. Acute CVA Left Devante, ischemic with neg carotids and echo: She remained stable. 2. DM II: She is on oral agents. Her blood sugars are reasonably well- controlled. These are reviewed and continue to be stable. 3. Hypertension: She is on oral agents for her hypertension. Her medications have been adjusted and blood pressures appear to be stable. 4. Dysphagia: She has been evaluated and is followed by speech therapy. She has some weakness at the base of her tongue. Speech therapy continues to work with patient. 5. Dizziness: She reports subacute to chronic "dizziness." Appears to be stable. No new symptoms are reported in this regard. 6. Depression: Was seen by psychiatry and her Prozac was increased to 40 mg daily. She states that it is starting to "kick in." Feels better in this regard. 7. Right knee pain: Recent right total knee replacement was performed. The knee is looking great. She has much improved range of motion and there is no redness. 8. Possible acute sinusitis with headache: Symptoms are improved although are likely related more to allergies at present. She has completed the Zithromax course. 9. Chest discomfort: Has been evaluated by cardiology. Consideration was given to angina. Has had no further symptoms of chest pain etc. Exam Vital Signs: Temperature 98.3 F 01/18/17 08:00 Pulse Rate 70 01/18/17 08:00 Respiratory Rate 18 01/18/17 08:00 Blood Pressure 168/79 H 01/18/17 08:00 Pulse Oximetry 99 01/18/17 08:00 Height/Weight/BMI: Height 1.57 m Weight 76.4 kg Body Mass Index 31.1 Comments: The patient is awake, alert and oriented and in no acute distress. She is quite anxious however. Pupils are equal. The neck is supple. Chest: Clear to auscultation bilaterally. Cor: RR with systolic murmur as noted before. Abd: soft with normo-active bowel sounds. There are no masses, no tenderness and no guarding. Extremities: No edema is noted. Right knee has much improved range of motion. The incision looks great. It is not red. Neurologically she is improved. Has minimal weakness and right upper extremity and right lower extremity. Fine motor movement is improved and I do not see any facial droop at present. IRU A/P (1) Left pontine CVA Current visit: Yes Status: Acute Patient has improved and stable on Plavix. She is ready to go home today. (2) DM type 2 (diabetes mellitus, type 2) Qualifiers: Diabetes mellitus complication status: without complication Diabetes mellitus ad terminal makeup operator insulin use: without ad terminal makeup operator use Qualified Code(s): E11.9 - Type 2 diabetes mellitus without complications Current visit: Yes Status: Chronic Her blood sugars are fairly well-controlled at the present time. (3) Status post total right knee replacement Current visit: Yes Status: Chronic (4) Benign essential hypertension Current visit: Yes Status: Chronic Blood pressures are improved. (5) Mixed hyperlipidemia Current visit: Yes Status: Chronic (6) Sciatica of right side Current visit: Yes Status: Acute (7) Depression Qualifiers: Depression Type: major depressive disorder Major depression recurrence: recurrent Active/Remission status: currently active Major depression episode severity: severe Psychotic features: without psychotic features Qualified Code(s): F33.2 - Major depressive disorder, recurrent severe without psychotic features Current visit: No Status: Chronic She has improved with the current dose of Prozac etc. (8) Osteoarthritis of knee Qualifiers: Osteoarthritis type: primary Laterality: right Qualified Code(s): M17.11 - Unilateral primary osteoarthritis, right knee Current visit: Yes Status: Chronic (9) Angina pectoris Current visit: Yes Status: Resolved Denies further symptoms of chest discomfort. DVT Prophylaxis: Lovenox, other (Plavix) Resuscitation Status: Do Not Resuscitate - Course Hospital Course: Josiah Gonzalez MD: 01/11/17 10:21 Continues to progress with therapy. Dysphagia with minimal impairment. She is emotionally labile and anxious. 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 Considered use of Nuedexta but likely not able to afford it when she gets out. In addition we would have to cut back on current antidepressants. Continues to complain of right hip and low back pain and discomfort consistent with sciatica. Blood pressure a bit elevated. 01/12/17 10:40 She would like an antibiotic for her sinuses. Advised to resume her may not be of benefit. We will try a Z-Donnie due to discolored drainage. Blood pressures are improved. Continues to be emotionally labile and anxious with probable pseudobulbar affect. We will check a venous Doppler due to more swelling and redness involving the right knee. We'll check a white count although she is able to bend the knee fairly well so that would argue against primary knee joint infection. May be more red and puffy just because she is using it more. 01/13/17 11:[address] Lainez's evaluation of her knee which appears to be stable. White count is normal and there is no evidence of infection. Venous Doppler negative. Continues to experience weakness on the right side as anticipated from her stroke. It is not worse. She is neurologically stable and remains on Plavix. Continues to be very tearful and anxious and psychiatry is been consulted. 01/15/17 08:59 Patient is progressing with therapy. Prozac is been increased to 40 mg. Report of melena on the part of the patient but not confirmed by nursing. Hemoglobin is stable. Stool Hemoccult positive but there was some bright red blood consistent with perirectal disease. Has been seen by cardiology with diagnosis of angina. Echo with results as noted. 01/18/17 10:45 She is progress for nicely with therapy. Feels better regarding her depression. Hemoglobin is stable. No further chest pain. - Interventions to Obtain Goals PT Treatment Plan: Balance/Proprioception, Functional Activities, Gait Training , Patient/Family Education, Therapeutic Exercise OT Treatment Plan: ADL (Basic Care), Balance Training, IADL, Pt./Family Education, Ther. Exercise for ADL, UE Functional Training Goals Progress/Modifications: Arrangements are made for her to go home today with home health.
--- NOTE | 2017-01-18 10:54 | Discharge Instructions ---
Discharge Plan - Med Rec/Dispo Referrals/Follow Up: Richard Brady MD [Physician] - 2 Weeks (Dr. Ron Brady on 01/27/17 at 10:30 am for follow-up. [facility] [address] [place] [address] Dr. Fernandez [address] [place] [address] ) Favian Lin DO [Physician] - (Dr. Carolyn Lin on 02/04/17 at 10:30 am for hosp follow-up. Check in at 10:15. [facility] [address] Alar[address] [place] [address]) Additional Instructions: Follow up with Dr. Brady about abnormal echocardiogram. You may need further evaluation to look at your heart valves. You are being prescribed 2 different medications for GERD - you might be able to stop one of them in about a month. Please discuss with your PCP. Prozac dose increased to 40 mg daily (take 2 of your 20 mg tablets at home). Flonase for sinus drainage (if needed). Also added Meclizine (if needed for dizziness). Prescriptions: New FLUoxetine [Prozac] 40 mg PO DAILY #0 capsule Fluticasone Nasal [place] [Flonase] 2 spray EA NOSTRIL DAILY #1 bottle Pantoprazole Sodium [Protonix] 20 mg PO ACB #30 tablet. Ranitidine [Zantac] 150 mg PO HS #30 tab Meclizine [Antivert] 12.5 mg PO TID PRN #30 tab PRN Reason: Dizziness Continue glipiZIDE [Glipizide] 10 mg PO BIDWM #0 clonazePAM [Clonazepam] 0.5 mg PO DAILY Atorvastatin [Lipitor] 1 tab PO HS Levothyroxine Sodium 50 mcg PO ACB #0 Lisinopril [Prinivil] 40 mg PO DAILY Amlodipine [Norvasc] 10 mg PO DAILY Triamterene/Hydrochlorothiazid [Triamterene-Hctz 37.5-25 mg Tb] 1 cap PO DAILY Clopidogrel [Plavix] 1 tab PO DAILY Discontinued FLUoxetine [Prozac] 30 mg PO DAILY Discharge Instructions/Outpatient Orders: Final Provider Discharge Instructions Location: Determined By Patient - Disposition 01 Discharged Home, Self-Care
--- NOTE | 2017-01-18 10:58 | Discharge Summary ---
Discharge Information Date of admission: 01/07/17 17:25 Anticipated date of discharge: 01/18/17 Attending Physician: Josiah Gonzalez MD Primary care physician: Enedelia Basurto DO Consults: 01/07/17 18:57 Physician Consult [CONS] Routine Consulting Provider: Mike Borja Reason For Exam: Medical Management Ordering Provider has Notified Account Information Clerk: Diana 01/08/17 11:31 Dietary Consult [CONS] Routine Comment: Reason For Exam: DM 2 on oral agents, elevated lipids, recent CVA 01/12/17 13:18 Doctor [Physician Consult] [CONS] Routine Consulting Provider: Lucho Lainez Reason For Exam: s/p knee replacement, pain, clicking Ordering Provider has Notified Account Information Clerk: No 01/12/17 15:03 Physician Consult [CONS] Routine Consulting Provider: Magui Benitez Reason For Exam: tearfulness, depression, anxiety Ordering Provider has Notified Account Information Clerk: No Comment: Or other psychiatrist 01/14/17 11:48 Physician Consult [CONS] Routine Consulting Provider: Richard Brady Reason For Exam: recent CVA, chest pain Ordering Provider has Notified Account Information Clerk: No - Discharge Diagnosis (1) Left pontine CVA Status: Acute Discharge Diagnosis: Left pontine CVA (2) DM type 2 (diabetes mellitus, type 2) Status: Chronic Discharge Diagnosis: Diabetes Mellitus, Type 2, not on insulin (3) Status post total right knee replacement Status: Chronic Discharge Diagnosis: Osteoarthritis of right knee, S/P right total knee replacement (4) Benign essential hypertension Status: Chronic Discharge Diagnosis: Benign essential hypertension (5) Mixed hyperlipidemia Status: Chronic Discharge Diagnosis: Mixed hyperlipidemia (6) Sciatica of right side Status: Acute Discharge Diagnosis: Sciatica right side (7) Depression Status: Chronic Discharge Diagnosis: Major depression, recurrent (8) Osteoarthritis of knee Status: Chronic Discharge Diagnosis: Osteoarthritis of right knee, primary (9) Angina pectoris Status: Resolved Discharge Diagnosis: Angina Pectoris, without myocardial infarction - Laboratory Labs: 01/18/17 05:03 01/18/17 05:03 History of Present Illness HPI: 01/18/17 10:57 Luan is a 72-year-old female with history of osteoarthritis of the knees. She underwent right total knee replacement by Dr. Lainez at [facility] on 12/15/2016. She was doing well with rehabilitation at home with home health and physical therapy. She then developed some slurred speech and weakness and called an ambulance on 01/03/2017. She requested direct transport to [facility]. At that location an MRI was done demonstrating an ischemic infarction in left lynda. There was no hemorrhagic transformation. Carotids were evaluated and noted only minimal atherosclerotic disease. Transthoracic echocardiogram done in [place] demonstrated ejection fraction of around 55-65%. No cardiac source of embolus was identified. She did not have evidence of atrial fibrillation. She was started on Plavix. She was stabilized and subsequent sent back to the inpatient rehabilitation unit at [facility]. 01/18/17 10:59 Hospital Course This is a general summary of the patient's hospital course. For more details refer to the complete medical record. The patient was admitted to the acute inpatient rehabilitation unit at [facility] for an intensive individualized course of physical therapy, occupational therapy, speech therapy and medical management of several medical conditions. She was seen in consultation by the hospitalist service. In addition she was seen in consultation by Dr. Brady for an episode of chest discomfort. Cardiology did feel that likely she had had an episode of angina pectoris. Echocardiogram was done suspecting aortic stenosis. Only minimal stenosis was identified. Contractility was normal. She did not have any further episodes of chest discomfort. A follow-up appointment with Dr. Brady is scheduled. The patient did experience discomfort in the right leg consistent with right leg sciatica which predated all of these medical and surgical issues. In addition, the patient had some discomfort and redness in the right knee. However there was no evidence of any infection in the knee joint nor in the incision. She was seen in consultation by Dr. Lainez as well. Range of motion of the knee improved dramatically during the rehabilitation time. She did improve with therapy. From an occupational therapy standpoint grooming improved from standby assistance to modified independent. Bathing improved from bag bath to modified independent status with showering with a grab bar present. Upper extremity dressing improved from moderate assistance to independent functioning. Lower extremity dressing improved from minimal assistance to independent functioning. Toilet transfers improved from modified assistance to modified independent functioning. From a physical therapy standpoint, she improved. Her transfers were standby assistance improving to essentially independent functioning. Walking initially was contact-guard assistance at 257 feet and by the conclusion of therapy with standby assistance at 625 feet. She was seen in consultation by speech therapy due to some dysphagia. 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 Swallowing improved but it is recommended that she gets a cricopharyngeal bar evaluated by ENT at some point as an outpatient. She is being dismissed today to her home with home health consultation. They will monitor her blood sugars, blood pressures as well as be involved with physical therapy and occupational therapy. Her blood sugars were very well controlled while on the rehabilitation unit. Blood pressures were quite variable. Her medications were adjusted in this regard. 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 Continue meclizine for dizziness. PT/OT orders per Dr. Gonzalez. Recommend reassessment by speech given her reported improvement in speech and swallow ability. KDur for hypokalemia. HTN - Norvasc 10 mg; Lisinopril 40 mg; Maxzide [facility] records reviewed - I asked nurses to verify home meds so we know which medications she will need Rx at time of discharge. Pneumococcal vaccine given. 01/09/17 Add Neurontin 100 mg and Flexeril 5 mg HS to help with sciatic pain. Constipation - prefers to try prune juice but will add PRN bowel aids in case she needs them. BP moderately elevated - permissive HTN in setting of acute stroke. Continue with current antiHTN. BGM - good control. 01/11/17 Reviewed external medication list. She was recently increased to Prozac 30 mg daily. She also uses Clonazepam 0.5 mg several times during the day and once at night. Will add the night dose to help with sleeping. Noted she was recently prescribed Ambien. Nursing staff calls following exam to reports she is now complaining of indigestion and shoulder pain. Obtain EKG and Troponin at this time. Continue with Flexeril and gabapentin for pain control Encouraged patient to work with PT/OT as she does noted improvements in right hand strength. 01/12/17: Overall, Luan is making good gains in therapy and with her strength. Continue to encourage participation in therapies and provide safe and supportive environment. Concern regarding increased pain to posterior thigh and calf with increased swelling to right knee and mild erythema to right knee. US obtain and was negative for DVT. Patient reports that she had her knee replaced in November and injured it when she fell 3 weeks ago. Clicking sensation noted to medial aspect of right knee which patient reports is knee. Will obtain knee x-ray and consult ortho for further evaluation and treatment recommendations. Appreciate their time and expertise. Due to patient concerns and strong requests, she was initiated on a z-pack for suspected sinus infection by Dr. Gonzalez. Monitor closely for additional signs of respiratory infections. Antibiotic to be complete on 01/16. Patient complained of indigestion and shoulder pain yesterday afternoon. Troponin was negative at <0.012. No pain or concerns currently. Continue with medication for GERD and GI protection. Continue with Flexeril and gabapentin for pain control. Continue mediations for bowel motivation. 01/12: [place]. 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 Continue to encourage participation in therapies and provide safe and supportive environment. Concern regarding increased pain to posterior thigh and calf with increased swelling to right knee and mild erythema to right knee. US obtain and was negative for DVT. Patient reports that she had her knee replaced in November and injured it when she fell 3 weeks ago. Clicking sensation noted to medial aspect of right knee which patient reports is knee. Will obtain knee x-ray and consult ortho for further evaluation and treatment recommendations. Appreciate their time and expertise. Due to patient concerns and strong requests, she was initiated on a z-pack for suspected sinus infection by Dr. Gonzalez. Monitor closely for additional signs of respiratory infections. Antibiotic to be complete on 01/16. Patient complained of indigestion and shoulder pain yesterday afternoon. Troponin was negative at <0.012. No pain or concerns currently. Continue with medication for GERD and GI protection. Continue with Flexeril and gabapentin for pain control. Continue mediations for bowel motivation. Time spent with patient: 25 - 35 minutes Discharge Plan - Med Rec/Dispo Referrals/Follow Up: Richard Brady MD [Physician] - 2 Weeks (Dr. Ron Brady on 01/27/17 at 10:30 am for follow-up. Cardiovascular [address] [place] [address] ) Favian Lin DO [Physician] - (Dr. Carolyn Lin on 02/04/17 at 10:30 am for hosp follow-up. Check in at 10:15. Primary Care [address] [place] [address]) Additional Instructions: Follow up with Dr. Brady about abnormal echocardiogram. You may need further evaluation to look at your heart valves. You are being prescribed 2 different medications for GERD - you might be able to stop one of them in about a month. Please discuss with your PCP. Prozac dose increased to 40 mg daily (take 2 of your 20 mg tablets at home). Flonase for sinus drainage (if needed). Also added Meclizine (if needed for dizziness). Prescriptions: New FLUoxetine [Prozac] 40 mg PO DAILY #0 capsule Fluticasone Nasal [place] [Flonase] 2 spray EA NOSTRIL DAILY #1 bottle Pantoprazole Sodium [Protonix] 20 mg PO ACB #30 tablet. Ranitidine [Zantac] 150 mg PO HS #30 tab Meclizine [Antivert] 12.5 mg PO TID PRN #30 tab PRN Reason: Dizziness Continue glipiZIDE [Glipizide] 10 mg PO BIDWM #0 clonazePAM [Clonazepam] 0.5 mg PO DAILY Atorvastatin [Lipitor] 1 tab PO HS Levothyroxine Sodium 50 mcg PO ACB #0 Lisinopril [Prinivil] 40 mg PO DAILY Amlodipine [Norvasc] 10 mg PO DAILY Triamterene/Hydrochlorothiazid [Triamterene-Hctz 37.5-25 mg Tb] 1 cap PO DAILY Clopidogrel [Plavix] 1 tab PO DAILY Discontinued FLUoxetine [Prozac] 30 mg PO DAILY Discharge Instructions/Outpatient Orders: Final Provider Discharge Instructions Location: Determined By Patient
== END 2017-01-18 12:15 | disposition home health service (06) | DRG 57 ==
PROVIDERS: ADMIT Internal Medicine; ATTEND Internal Medicine

== ENCOUNTER 2017-05-27 09:49 | Observation (INO) ==
[2017-05-27] MEDS ORDERED: SALINE FLUSH 10ml SYRINGE IVF PRN (10:06)
--- NOTE | 2017-05-27 10:08 | Emergency Department Report ---
General Adult HPI - General Stated complaint: cp Time Seen by Provider: 05/27/17 10:05 Source: patient, EMS Mode of arrival: EMS Limitations: no limitations - History of Present Illness HPI narrative: 72-year-old female presents to the emergency department with a chief complaint of suicidal ideation. Patient also notes anxiety with palpitations. She denies true chest pain or discomfort. Patient states that she has been experiencing dizziness and palpitations secondary to anxiety since her stroke several years ago. These are not new symptoms. She denies any current pain or discomfort. She does admit to being suicidal. She will not elaborate to me whether or not she has a plan to commit suicide. She denies self injury or self -harm. She denies homicidal ideation or plan. No other complaints or associated symptoms. She was at home when her symptoms began. Symptoms have been persistent in nature since onset. She does not note any exacerbating or remitting factors. - Related Data Home Medications Medication Instructions Recorded Confirmed Levothyroxine Sodium 50 mcg PO ACB #0 12/01/14 05/27/17 glipiZIDE [Glipizide] 10 mg PO BIDWM #0 04/21/15 05/27/17 Amlodipine [Norvasc] 10 mg PO DAILY 12/11/16 05/27/17 Prozac (fluoxetine) 20 mg capsule 20 mg PO DAILY cap 04/29/17 05/27/17 LORazepam [Ativan] 0.5 mg PO TID PRN 05/27/17 05/27/17 Suvorexant [Belsomra] 5 mg PO HS 05/27/17 05/27/17 Allergies Allergy/AdvReac Type Severity Reaction Status Date / Time latex Allergy Intermediate Rash Verified 05/27/17 10:22 levofloxacin Allergy Intermediate Verified 05/27/17 10:22 aspirin Allergy Unknown Tinnitus Verified 05/27/17 10:22 Penicillins Allergy Unknown Verified 05/27/17 10:22 lisinopril AdvReac Severe Cough Verified 05/27/17 10:22 Review of Systems Constitutional: Denies: fever, chills Eyes: Denies: eye pain, vision change ENT: Denies: ear pain, throat pain Cardiovascular: Reports: palpitations. Denies: chest pain Respiratory: Denies: cough, dyspnea Gastrointestinal: Denies: abdominal pain, nausea, vomiting, diarrhea Genitourinary: Denies: urgency, dysuria, frequency Musculoskeletal: Denies: back pain, arthralgia Integumentary: Denies: erythema, rash Neurological: Denies: headache, numbness, paresthesias Psychiatric: Reports: suicidal thoughts. Denies: anxiety, depression, homicidal thoughts, auditory hallucinations, visual hallucinations Endocrine: Denies: fatigue, heat or cold intolerance Hematological/Lymphatic: Denies: easy bleeding, easy bruising, lymphadenopathy Allergic/Immunologic: Denies: facial swelling, urticaria PFSH Patient Stated Medical History Transient Ischemic Attacks ( Yes: right side weakness TIA) Hypertension Yes Sleep Apnea No Diabetes Mellitus Type 2 Yes Constipation Yes Gastroesophageal Reflux Yes Disease Other GI Yes: IBS, constipation Hx Incontinence Yes: Used to leak after hysterectomy Osteoarthritis Yes Anesthesia Reactions Yes: N/V Depression Yes: anxiety Uterine Prolapse Yes Clinic Medical History (Last Reviewed 11/04/16 @ 10:23 by Lucho Lainez MD) Hernández's palsy (Chronic Medical) Osteoarthritis (Chronic Medical) Depression (Chronic Medical) Anxiety (Chronic Medical) Thyroid disease (Chronic Medical) High cholesterol (Chronic Medical) HTN (hypertension) (Chronic Medical) Surgical History: Hysterectomy & BSO, Tonsillectomy, Multiple nasal surgeries, cholecystectomy, Lt wrist-ORIF, tubal ligation. Recent right total knee replacement 12/15/16. Transthoracic echocardiogram 12/2016 EF 55-65%, some dilatation of left atrium. Carotid ultrasound 12/2016 mild atherosclerotic plaque in both carotids without hemodynamically significant stenosis Family History: Family History (Last Reviewed 11/04/16 @ 10:23 by Lucho Lainez MD) Father HTN (hypertension) Heart attack Mother Diabetes Osteoarthritis - Social History Smoking status: Former smoker (used to smoke "socially") Substance use type: marijuana Alcohol intake frequency: does not drink Current residence: Apartment/Private Home Physical Exam - Limitations Limitations: no limitations - General General appearance: alert, in no apparent distress - Normal Exams: Head:: Normocephalic without trauma Eyes:: Pupils are PERRLA w/ EOMI, No scleral icterus, irritation, or foreign bodies noted ENMT:: No facial trauma, nasal exudates, pharyngeal erythema, or exudates are noted Dental: No fractured, loose, or missing teeth noted Neck:: Full range of motion, without adenopathy, JVD, bruits or thyromegaly Chest/Respirations:: Clear all owens, with good airflow, and symmetry bilaterally Cardiovascular:: Regular rate and rhythm, without murmur or gallop, Pulses 2+ all extremities, capillary refill, <2 seconds all extremities Abdomen:: Bowel sounds positive, soft, non-tender, non-distended, no hepatosplenomegaly, masses or bruits noted Lymphatic:: No lymphadenopathy, or lymphedema noted Musculoskeletal:: No tenderness, or deformity noted, good range of motion, all extremities Integumentary:: No rashes, hives, or bruising noted, hair and nails, without abnormality Neurological:: Patient is alert, and oriented, cranial nerves, motor/sensory/ cerebellar, exams w/o gross deficits, to observation Psychiatric:: Patient exhibits, appropriate attention, emotion and affect Course Vital Signs Temperature 99.1 F 05/27/17 09:50 Pulse Rate 80 05/27/17 09:50 Respiratory Rate 28 H 05/27/17 09:50 Blood Pressure 169/91 H 05/27/17 09:50 Pulse Oximetry 98 05/27/17 09:50 Temperature 99.1 F 05/27/17 09:50 Pulse Rate 97 05/27/17 11:24 Respiratory Rate 20 05/27/17 11:24 Blood Pressure 148/71 H 05/27/17 11:24 Pulse Oximetry 99 05/27/17 11:24 Medical Decision Making - [facility] Narrative Medical decision making narrative: Original plan was to admit the patient to [facility] after supplementing the hypokalemia of 2.9 with 40 mEq of potassium by mouth times one at approximately 1330. financial assistance advisor was placed to [facility] and generations underwent screenings and multiple consultations with psychiatry and other providers. After approximately 2-1/2 hours [facility] declines to admit the patient and recommending medical admission due to the hypokalemia of 2.9. Patient is discussed with Dr. Favian Lin who is her primary care physician who declines to admit the patient citing that he is signed out to the hospitalist service at this time. Patient is then discussed with the hospitalist Dr. Burgos who agrees to admit the patient to the CCU to her service due to the suicidal ideation and hypokalemia. Patient has 2 negative troponins and an EKG without ischemic changes. Her symptoms are chronic in nature and not new. Patient is admitted for suicidal ideation/hypokalemia. She is admitted to the service of the hospitalist Dr. Burgos in improved condition. No further orders from accepting physician who is in agreement with the current plan of management. Patient has no urinary symptoms at this time. - Differential Diagnosis depression, anxiety, suicidal ideation, metabolic disorder - Lab Data Result diagrams: 05/27/17 10:34 05/27/17 10:34 Lab Results 05/27/17 05/27/17 05/27/17 Range/Units 10:34 10:34 13:22 WBC 9.2 (4.5-11.0) T/MM3 RBC 4.78 (4.00-5.20) M/MM3 Hgb 14.3 (12-16) GM/DL Hct 41.4 (36-46) % MCV 86.6 (80-100) UM3 MCH 29.9 (26-34) UUG MCHC 34.5 (31-37) GM/DL RDW Std Deviation 40.4 (36.9-50.2) FL Plt Count 348 (130-400) T/MM3 MPV 10.2 (9.4-12.4) UM3 Immature Gran % (Auto) Not performed Neut % (Auto) Not performed Lymph % (Auto) Not performed Harmon % (Auto) Not performed Eos % (Auto) Not performed Baso % (Auto) Not performed Neut # (Auto) Not performed Lymph # (Auto) Not performed Harmon # (Auto) Not performed Eos # (Auto) Not performed Baso # (Auto) Not performed Abs Immat Gran (auto) Not performed Neutrophils % (Manual) 86.0 H (33-66) % Band Neutrophils % 3.0 (0-6) % Lymphocytes % (Manual) 7.0 L (23-45) % Monocytes % (Manual) 4.0 (0-9.0) % Neutrophils # (Manual) 7.9 H (1.8-7.7) T/MM3 Band Neutrophils # 0.3 T/MM3 Lymphocytes # (Manual) 0.6 L (1-4.8) T/MM3 Monocytes # (Manual) 0.4 (0-0.8) T/MM3 RBC Morph Comment Normal Turbidity < 20 (0-20) Sodium 141 (134-144) MEQ/L Potassium 2.9 L* (3.6-5) MEQ/L Chloride 104 (98-107) MEQ/L Carbon Dioxide 23 (22-30) MEQ/L Anion Gap 14 (5-15) MEQ/L BUN 18.0 H (7-17) MG/DL Creatinine 1.2 (0.7-1.2) MG/DL GFR Calculation 44 BUN/Creatinine Ratio 15 (6-26) RATIO Glucose 158 H (65-110) MG/DL Calculated Osmolality 276 (261-280) MOSM/KG Calcium 9.7 (8.4-10.2) MG/DL Total Bilirubin 1.00 (0.20-1.30) MG/DL Icterus Index < 2 (0-7) AST 17 (14-36) U/L ALT 21 (9-52) U/L Alkaline Phosphatase 100 (38-126) U/L Troponin I < 0.012 (0-0.12) ng/ml Total Protein 8.1 (6.3-8.2) G/DL Albumin 4.9 (3.5-5.0) G/DL Globulin 3.2 (2.4-3.6) G/DL Albumin/Globulin Ratio 1.5 (1.1-2.2) RATIO TSH 1.46 (0.47-4.68) MIU/L Specimen Hemolysis < 15 (0-25) Ur Collection Type Urine, void-cc/notcc Urine Color Yellow (YELLOW) Urine Clarity Sl cloudy Urine pH 6.0 (5.0-8.0) Ur Specific [place] 1.025 (1.015-1.025) Urine Protein 1+ A (NEGATIVE) Urine Glucose (UA) Negative (NEGATIVE) Urine Ketones 1+ A (NEGATIVE) Urine Occult Blood Negative (NEGATIVE) Urine Nitrate Negative (NEGATIVE) Urine Bilirubin 2+ A (NEGATIVE) Urine Urobilinogen 0.2 (NORMAL) EU/DL Ur Leukocyte Esterase Negative (NEGATIVE) Urine RBC 0-1 (0-3) /HPF Urine WBC 5-10 H (0-5) /HPF Ur Squamous Epith Cells None seen Urine Bacteria Trace H (NEGATIVE) Hyaline Casts 3-5 /LPF Urine Mucus Present Ur Culture Indicated? Cult not indicated Salicylates < 1.0 L (2-20) MG/DL Urine Opiates Screen ng/mL Ur Oxycodone Screen ng/mL Urine Methadone Screen ng/mL Ur Propoxyphene Screen ng/mL Acetaminophen < 10 L (10-30) UG/ML Ur Barbiturates Screen ng/mL U Tricyclic Antidepress ng/mL Ur Phencyclidine Scrn ng/mL Ur Amphetamines Screen ng/mL U Methamphetamines Scrn ng/mL U Benzodiazepines Scrn ng/mL Urine Cocaine Screen ng/mL U Cannabinoids Screen ng/mL Ur Drug Screen Confirm Alcohol, Quantitative <10 (<10) MG/DL 05/27/17 05/27/17 05/27/17 Range/Units 13:22 13:22 13:22 WBC (4.5-11.0) T/MM3 RBC (4.00-5.20) M/MM3 Hgb (12-16) GM/DL Hct (36-46) % MCV (80-100) UM3 MCH (26-34) UUG MCHC (31-37) GM/DL RDW Std Deviation (36.9-50.2) FL Plt Count (130-400) T/MM3 MPV (9.4-12.4) UM3 Immature Gran % (Auto) Neut % (Auto) Lymph % (Auto) Harmon % (Auto) Eos % (Auto) Baso % (Auto) Neut # (Auto) Lymph # (Auto) Harmon # (Auto) Eos # (Auto) Baso # (Auto) Abs Immat Gran (auto) Neutrophils % (Manual) (33-66) % Band Neutrophils % (0-6) % Lymphocytes % (Manual) (23-45) % Monocytes % (Manual) (0-9.0) % Neutrophils # (Manual) (1.8-7.7) T/MM3 Band Neutrophils # T/MM3 Lymphocytes # (Manual) (1-4.8) T/MM3 Monocytes # (Manual) (0-0.8) T/MM3 RBC Morph Comment Turbidity (0-20) Sodium (134-144) MEQ/L Potassium (3.6-5) MEQ/L Chloride (98-107) MEQ/L Carbon Dioxide (22-30) MEQ/L Anion Gap (5-15) MEQ/L BUN (7-17) MG/DL Creatinine (0.7-1.2) MG/DL GFR Calculation BUN/Creatinine Ratio (6-26) RATIO Glucose (65-110) MG/DL Calculated Osmolality (261-280) MOSM/KG Calcium (8.4-10.2) MG/DL Total Bilirubin (0.20-1.30) MG/DL Icterus Index (0-7) AST (14-36) U/L ALT (9-52) U/L Alkaline Phosphatase (38-126) U/L Troponin I < 0.012 (0-0.12) ng/ml Total Protein (6.3-8.2) G/DL Albumin (3.5-5.0) G/DL Globulin (2.4-3.6) G/DL Albumin/Globulin Ratio (1.1-2.2) RATIO TSH (0.47-4.68) MIU/L Specimen Hemolysis < 15 (0-25) Ur Collection Type Urine Color (YELLOW) Urine Clarity Urine pH (5.0-8.0) Ur Specific [place] (1.015-1.025) Urine Protein (NEGATIVE) Urine Glucose (UA) (NEGATIVE) Urine Ketones (NEGATIVE) Urine Occult Blood (NEGATIVE) Urine Nitrate (NEGATIVE) Urine Bilirubin (NEGATIVE) Urine Urobilinogen (NORMAL) EU/DL Ur Leukocyte Esterase (NEGATIVE) Urine RBC (0-3) /HPF Urine WBC (0-5) /HPF Ur Squamous Epith Cells Urine Bacteria (NEGATIVE) Hyaline Casts /LPF Urine Mucus Ur Culture Indicated? Salicylates (2-20) MG/DL Urine Opiates Screen Negative ng/mL Ur Oxycodone Screen Negative ng/mL Urine Methadone Screen Negative ng/mL Ur Propoxyphene Screen Negative ng/mL Acetaminophen (10-30) UG/ML Ur Barbiturates Screen Negative ng/mL U Tricyclic Antidepress Negative ng/mL Ur Phencyclidine Scrn Negative ng/mL Ur Amphetamines Screen Negative ng/mL U Methamphetamines Scrn Negative ng/mL U Benzodiazepines Scrn Positive ng/mL Urine Cocaine Screen Negative ng/mL U Cannabinoids Screen Positive ng/mL Ur Drug Screen Confirm Sent out Alcohol, Quantitative (<10) MG/DL - Radiology Data CT Head - No acute processes. CXR - No acute processes. - EKG Data EKG #1 EKG results narrative: Sinus rhythm. 76 bpm. No STEMI. Disposition Clinical Impression: Suicidal ideation Disposition: 02 To [facility] Condition: Improved Time of Disposition: 13:20 - Seen By: physician
--- OUTSIDE RECORDS SUMMARY | 2017-05-27 10:20 | External Medical Summary | Continuity of Care Document ---
:1945 Author Organization [facility] Allergies Active Description Code Type Severity Reaction Onset Reported/ Identified Relationship Clinical to Patient Status Yes Penicillins Penic Drug Severe THROAT 2017 illin Aller SWELLS, s gy CAN NOT BREATHE, RASH Yes aspirin aspir Drug Moderate SEVERE 2017 in Aller HEADACHE gy AND LOUD RINGING IN EARS, GI UPSET. Yes levofloxacin levof Drug Mild NAUSEA, 2017 loxac Aller TENDONS in gy "POP PING ALL OVER THE PLACE&quo t;. Yes levofloxacin levof Drug Unknown UNKNOWN 2017 loxac Aller in gy Medications There is no data. 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, SINGLE EPISODE, UNSPECI 2017 Schwasinger F F41.9 ANXIETY DISORDER, Ammy Whipple UNSPECIFIED 2017 Schwasinger F G47.00 INSOMNIA, Ammy Whipple UNSPECIFIED 2017 Schwasinger F 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 Results Test Result Range TROPONIN I BEDSIDE - 01/03/17 02:44 METHOD Bedside TROPONIN I < 0.04 ng/mL < 0.11 CBC - 01/03/17 02:47 MEAN CELL HGB 29.4 pg 27.0-33.0 MEAN CELL HGB CONCENTRATION 33.0 g/dL 32.0-37.0 MEAN CELL VOLUME 89.3 fl 80.0-100.0 MEAN PLATELET VOLUME 10.4 fl 8.5-10.9 RED BLOOD CELL 3.91 m/cumm 4.00-6.00 RED CELL DISTRIBUTION WIDTH 12.9 % 11.0-15.6 WHITE BLOOD CELL 11.0 k/cumm 5.0-10.0 HEMOGLOBIN 11.5 gm/dL 12.0-16.0 HEMATOCRIT 34.9 % 37.0-47.0 PLATELET COUNT 333 k/cumm 150-400 PROTHROMBIN TIME WITH INR - 01/03/17 02:47 INTERNATIONAL NORMAL RATIO 1.1 0.9-1.1 PROTHROMBIN TIME 12.6 sec 10.0-12.8 METABOLIC PANEL, BASIC - 01/03/17 02:47 POTASSIUM 3.0 mmol/L 3.5-5.3 EST GFR (MDRD) 55 mL/min > 59 ANION GAP 16 mmol/L 5-15 EST CrCl (CG) 50 mL/min > 59 GLUCOSE 123 mg/dL 70-99 CALCIUM 8.6 mg/dL 8.5-10.1 BLOOD UREA NITROGEN 19 mg/dL 7-20 CREATININE 1.0 mg/dL 0.6-1.0 SODIUM 137 mmol/L 135-148 CHLORIDE 100 mmol/L 98-110 CARBON DIOXIDE 21 mmol/L 21-32 LIPID PANEL - 01/03/17 02:47 CHOLESTEROL/HDL RATIO 5.2 < 5.0 LDL CHOLESTEROL 125 mg/dL < 100 VLDL CHOLESTEROL 34 mg/dL < 30 TRIGLYCERIDES 170 mg/dL < 150 CHOLESTEROL 197 mg/dL < 200 HDL CHOLESTEROL 38 mg/dL > 39 THYROID STIM HORMONE (TSH) - 01/03/17 02:47 THYROID STIM HORMONE (TSH) 1.05 uIU/mL 0.34-4.82 IRON - 01/03/17 02:47 IRON 62 mcg/dL 35-150 FERRITIN - 01/03/17 02:47 FERRITIN 312 ng/mL 8-252 VITAMIN B12 - 01/03/17 02:47 VITAMIN B12 > 2000 pg/mL 211-911 FOLIC ACID,SERUM - 01/03/17 02:47 FOLIC ACID,SERUM > 24.0 ng/mL > 3.4 HEMOGLOBIN A1C - 01/03/17 02:47 HEMOGLOBIN A1C 6.3 % < 5.7 GLUCOSE (POC) - 01/03/17 07:45 GLUCOSE (POC) 128 mg/dL 70-99 GLUCOSE (POC) - 01/03/17 11:10 GLUCOSE (POC) 111 mg/dL 70-99 GLUCOSE (POC) - 01/03/17 16:30 GLUCOSE (POC) 118 mg/dL 70-99 GLUCOSE (POC) - 01/03/17 20:51 GLUCOSE (POC) 120 mg/dL 70-99 METABOLIC PANEL, BASIC - 01/04/17 04:50 POTASSIUM 3.5 mmol/L 3.5-5.3 EST GFR (MDRD) > 60 mL/min > 59 ANION GAP 9 mmol/L 5-15 EST CrCl (CG) > 60 mL/min > 59 GLUCOSE 130 mg/dL 70-99 CALCIUM 8.5 mg/dL 8.5-10.1 BLOOD UREA NITROGEN 16 mg/dL 7-20 CREATININE 0.7 mg/dL 0.6-1.0 SODIUM 140 mmol/L 135-148 CHLORIDE 107 mmol/L 98-110 CARBON DIOXIDE 24 mmol/L 21-32 CBC - 01/04/17 04:50 MEAN CELL HGB 29.0 pg 27.0-33.0 MEAN CELL HGB CONCENTRATION 33.1 g/dL 32.0-37.0 MEAN CELL VOLUME 87.7 fl 80.0-100.0 MEAN PLATELET VOLUME 10.8 fl 8.5-10.9 RED BLOOD CELL 3.89 m/cumm 4.00-6.00 RED CELL DISTRIBUTION WIDTH 13.4 % 11.0-15.6 WHITE BLOOD CELL 5.8 k/cumm 5.0-10.0 HEMOGLOBIN 11.3 gm/dL 12.0-16.0 HEMATOCRIT 34.1 % 37.0-47.0 PLATELET COUNT 329 k/cumm 150-400 MAGNESIUM - 01/04/17 04:50 MAGNESIUM 2.0 mg/dL 1.8-2.4 PHOSPHORUS - 01/04/17 04:50 PHOSPHORUS 2.6 mg/dL 2.5-4.9 GLUCOSE (POC) - 01/04/17 06:40 GLUCOSE (POC) 144 mg/dL 70-99 GLUCOSE (POC) - 01/04/17 10:57 GLUCOSE (POC) 128 mg/dL 70-99 GLUCOSE (POC) - 01/04/17 16:04 GLUCOSE (POC) 128 mg/dL 70-99 GLUCOSE (POC) - 01/04/17 20:39 GLUCOSE (POC) 112 mg/dL 70-99 CBC - 01/05/17 05:10 MEAN CELL HGB 29.2 pg 27.0-33.0 MEAN CELL HGB CONCENTRATION 33.2 g/dL 32.0-37.0 MEAN CELL VOLUME 88.0 fl 80.0-100.0 MEAN PLATELET VOLUME 10.5 fl 8.5-10.9 RED BLOOD CELL 4.07 m/cumm 4.00-6.00 RED CELL DISTRIBUTION WIDTH 13.5 % 11.0-15.6 WHITE BLOOD CELL 5.7 k/cumm 5.0-10.0 HEMOGLOBIN 11.9 gm/dL 12.0-16.0 HEMATOCRIT 35.8 % 37.0-47.0 PLATELET COUNT 343 k/cumm 150-400 RENAL FUNCTION PANEL - 01/05/17 05:10 POTASSIUM 3.6 mmol/L 3.5-5.3 EST GFR (MDRD) > 60 mL/min > 59 ANION GAP 8 mmol/L 5-15 EST CrCl (CG) > 60 mL/min > 59 GLUCOSE 128 mg/dL 70-99 CALCIUM 8.9 mg/dL 8.5-10.1 BLOOD UREA NITROGEN 14 mg/dL 7-20 CREATININE 0.6 mg/dL 0.6-1.0 SODIUM 143 mmol/L 135-148 CHLORIDE 109 mmol/L 98-110 CARBON DIOXIDE 26 mmol/L 21-32 ALBUMIN 3.4 gm/dL 3.4-5.0 PHOSPHORUS 2.4 mg/dL 2.5-4.9 MAGNESIUM - 01/05/17 05:10 MAGNESIUM 2.0 mg/dL 1.8-2.4 GLUCOSE (POC) - 01/05/17 05:51 GLUCOSE (POC) 119 mg/dL - GLUCOSE (POC) - 01/05/17 12:37 GLUCOSE (POC) 112 mg/dL - GLUCOSE (POC) - 01/05/17 16:25 GLUCOSE (POC) 125 mg/dL 70-99 GLUCOSE (POC) - 01/05/17 20:38 GLUCOSE (POC) 146 mg/dL 70-99 CBC - 01/06/17 04:35 MEAN CELL HGB 29.5 pg 27.0-33.0 MEAN CELL HGB CONCENTRATION 33.4 g/dL 32.0-37.0 MEAN CELL VOLUME 88.2 fl 80.0-100.0 MEAN PLATELET VOLUME 10.6 fl 8.5-10.9 RED BLOOD CELL 3.90 m/cumm 4.00-6.00 RED CELL DISTRIBUTION WIDTH 13.6 % 11.0-15.6 WHITE BLOOD CELL 5.1 k/cumm 5.0-10.0 HEMOGLOBIN 11.5 gm/dL 12.0-16.0 HEMATOCRIT 34.4 % 37.0-47.0 PLATELET COUNT 322 k/cumm 150-400 RENAL FUNCTION PANEL - 01/06/17 04:35 POTASSIUM 3.6 mmol/L 3.5-5.3 EST GFR (MDRD) > 60 mL/min > 59 ANION GAP 10 mmol/L 5-15 EST CrCl (CG) > 60 mL/min > 59 GLUCOSE 137 mg/dL 70-99 CALCIUM 8.8 mg/dL 8.5-10.1 BLOOD UREA NITROGEN 13 mg/dL 7-20 CREATININE 0.7 mg/dL 0.6-1.0 SODIUM 141 mmol/L 135-148 CHLORIDE 106 mmol/L 98-110 CARBON DIOXIDE 25 mmol/L 21-32 ALBUMIN 3.5 gm/dL 3.4-5.0 PHOSPHORUS 3.3 mg/dL 2.5-4.9 MAGNESIUM - 01/06/17 04:35 MAGNESIUM 2.1 mg/dL 1.8-2.4 GLUCOSE (POC) - 01/06/17 06:16 GLUCOSE (POC) 144 mg/dL 70-99 GLUCOSE (POC) - 01/06/17 11:20 GLUCOSE (POC) 150 mg/dL 70-99 GLUCOSE (POC) - 01/06/17 17:08 GLUCOSE (POC) 108 mg/dL 70-99 GLUCOSE (POC) - 01/06/17 19:55 GLUCOSE (POC) 140 mg/dL 70-99 GLUCOSE (POC) - 01/07/17 05:31 GLUCOSE (POC) 135 mg/dL 70-99 CBC - 01/07/17 05:40 MEAN CELL HGB 29.5 pg 27.0-33.0 MEAN CELL HGB CONCENTRATION 33.0 g/dL 32.0-37.0 MEAN CELL VOLUME 89.5 fl 80.0-100.0 MEAN PLATELET VOLUME 10.5 fl 8.5-10.9 RED BLOOD CELL 4.30 m/cumm 4.00-6.00 RED CELL DISTRIBUTION WIDTH 13.9 % 11.0-15.6 WHITE BLOOD CELL 4.6 k/cumm 5.0-10.0 HEMOGLOBIN 12.7 gm/dL 12.0-16.0 HEMATOCRIT 38.5 % 37.0-47.0 PLATELET COUNT 333 k/cumm 150-400 RENAL FUNCTION PANEL - 01/07/17 05:40 POTASSIUM 4.0 mmol/L 3.5-5.3 EST GFR (MDRD) > 60 mL/min > 59 ANION GAP 10 mmol/L 5-15 EST CrCl (CG) > 60 mL/min > 59 GLUCOSE 139 mg/dL 70-99 CALCIUM 9.3 mg/dL 8.5-10.1 BLOOD UREA NITROGEN 13 mg/dL 7-20 CREATININE 0.8 mg/dL 0.6-1.0 SODIUM 140 mmol/L 135-148 CHLORIDE 105 mmol/L 98-110 CARBON DIOXIDE 25 mmol/L 21-32 ALBUMIN 3.6 gm/dL 3.4-5.0 PHOSPHORUS 3.4 mg/dL 2.5-4.9 MAGNESIUM - 01/07/17 05:40 MAGNESIUM 2.2 mg/dL 1.8-2.4 GLUCOSE (POC) - 01/07/17 11:01 GLUCOSE (POC) 156 mg/dL 70-99 Encounters ACCT Visit Discharge Status Pt. Type Provider Facility Loc./Unit Complaint No. Date/Time [id number] 2017 01/07/2017 [id number]
--- NOTE | 2017-05-27 10:58 | XRay Report ---
Indication: Chest pain PROCEDURE: XR chest 1V: Encounter: Initial Comparison: September 17, 2016 FINDINGS: The lungs are clear. There is no abnormal airspace opacity, pleural effusion or pneumothorax identified. The heart size, pulmonary vasculature and mediastinum are within normal limits. No significant skeletal abnormality is seen. IMPRESSION: No acute cardiopulmonary abnormality. .
--- NOTE | 2017-05-27 11:16 | CT Scan Report ---
Indication: dizzy PROCEDURE: CT head/brain wo con: Encounter: Initial Comparison: May 25, 2015 and July 14, 2014 Technique: Axial CT images through the head were performed without contrast. Iterative Reconstruction dose reducing technique was utilized. FINDINGS: Stable 1 cm left frontal extra-axial lesion that could represent a meningioma or arachnoid cyst. This is unchanged back to 2014. The ventricles are of normal size, shape, and contour for the patient's age. There are scattered areas of low attenuation in the white matter which most likely represent changes from chronic microvascular ischemia. The brainstem, cerebellum, and cerebral hemispheres otherwise have a normal morphology and CT attenuation. There is no evidence of midline displacement. No hemorrhage, signs of acute territorial stroke, mass effect, mass lesions, or edema is evident. The visualized portions of the skull base, midface, and calvarium demonstrate no abnormality. Prior sinus surgeries with chronic appearing ethmoid sinus disease. The tympanic and mastoid cavities appear normal. IMPRESSION: No acute intracranial abnormality or hemorrhage. Stable head CT. .
[2017-05-27] MEDS ORDERED: NS 1,000 ML IV ONE (12:01)
[2017-05-27] MEDS: ACETAMINOPHEN 500 MG TABLET PO PRN (18:30)
[2017-05-27] MEDS ORDERED: MAGNESIUM CITRATE 296ml PO ONE (19:20)
[2017-05-27] MEDS: AMLODIPINE 10 MG TABLET PO SCH (20:14)
--- NOTE | 2017-05-27 20:22 | History & Physical Report ---
History of Present Illness Date: 05/27/17 Chief complaint: suicidal ideation/threats HPI: Ms. Ge is a 72 yo woman with multiple chronic complaints and chronic pain who reports that she just doesn't want to hurt anymore. She was seen in Dr. Lin's office earlier today and apparently reported that she wanted to kill herself; she subsequently reiterated this on evaluation in the emergency room although did not describe a plan. While undergoing evaluation in the emergency room potassium was found to be 2.9 and she is subsequently admitted to the medical service in the ICU for medical stabilization prior to consideration of psychiatric admission. On evaluation to the ICU the patient talks nonstop about weird sensations in her head, feeling that the left side of her body is weak intermittently although past stroke affected her right side, minor noises causing her to startle and frighten her if she is awake or awaken her from sleep repetitively and subsequently she gets no rest. She describes tingling and piercing pains in various places throughout her body most notably in the right hip and groin where she's been told she has sciatica. She also describes her left knee giving out and that these symptoms "just scare me to ". She believes she has a pinched nerve in her neck causing her to have frequent headaches and that she feels like there are things crawling in/on her neck. She reports that she frequently panics when she has any sort of pain and that she simply can't go on living like this. She went on to say she doesn't think anyone is listening to her and that nothing is being done to help her. She expressed concern that she had cancer or brain tumor or an infection or some other problem. She is caring multiple records from hospitalization at [facility] and points out prior diagnoses related to her stroke questioning why they told her she had dementia although dementia was not listed; she additionally has a CD of diagnostic studies done while she was hospitalized at [facility] for her stroke. Following her stroke fluoxetine dose was increased from 30 mg daily to 40 mg daily but since that time doses been decreased to 20 mg a day. Review of Systems Review of systems: 10 point review of system was completed and is positive virtually across the board with patient describing visual blurring, her left eye spasming when she looks different directions; she has occasional nosebleeds and sinus pressure. She's had extensive sinus surgery in the past and is sure she has sinusitis. She describes severe pain in the right frontal sinus in particular. She has tinnitus and things fibroid in her ears. She has trouble swallowing frequently and feels that her upper esophagus closes off. She denied recent dental work. She has episodes of dyspnea but did not describe cough or sputum production. She has palpitations but did not characterize them is painful only frightening. She has chronic constipation and her last bowel movement was 4 days ago. Nausea and reflux were not reported. She has difficulty urinating/incontinence which seems to date back to her hysterectomy (timing of many of the patient's symptoms is uncertain-many of her symptoms date back to hysterectomy which she cites as the onset of her downfall). She describes spasms in her right leg, neuropathic pain in her right leg, pain with various characterization that can be located virtually anywhere at any given time. She describes fatigue, lack of motivation including not bathing. She describes intermittent numbness and weakness in either leg although these symptoms seem to be greater in the right than left. Remarkably she did not describe rashes but is concerned about physical appearance of the scar from her right TKA. She is losing weight due to difficulty swallowing but did not identify how much wt has been lost. She has not had fevers or chills. She describes extreme anxiety that only lorazepam helps control. Past Medical History Clinic Medical History (Last Updated 05/27/17 @ 20:14 by Areli Burgos MD) Adult hypothyroidism Aortic stenosis - AV 0.83 cm December 2016 Cerebrovascular accident (CVA) of left pontine structure (01/10) Diabetes mellitus, type 2 IBS (irritable bowel syndrome) Sciatica of right side Anxiety Hernández's palsy Depression HTN (hypertension) High cholesterol Osteoarthritis Surgical History: Hysterectomy & BSO, Tonsillectomy, Multiple nasal surgeries, cholecystectomy, Lt wrist-ORIF, tubal ligation,. Right total knee replacement . Transthoracic echocardiogram 12/2016 EF 55-65%, some dilatation of left atrium. Carotid ultrasound 12/2016 mild atherosclerotic plaque in both carotids without hemodynamically significant stenosis Family History: Family History (Last Reviewed 05/27/17 @ 20:06 by Areli Burgos MD) Father HTN (hypertension) Heart attack Mother Diabetes Osteoarthritis Family History Updates: Denies family history of depression, bipolar affective disorder, or suicide - Social History Smoking status: Never smoker (past records indicate history of social tobacco use but patient adamantly denies) Substance use type: does not use Alcohol intake frequency: does not drink Current residence: Apartment/Private Home Social history: PCP-Dr. Lin CODE STATUS-DO NOT RESUSCITATE Alternate decision maker-has not assigned DPOA but refers to her brother as probable alternate decision-maker Medications Home Medications Medication Instructions Recorded Confirmed Type Levothyroxine Sodium 50 mcg PO ACB #0 12/01/14 05/27/17 History glipiZIDE [Glipizide] 10 mg PO BIDWM #0 04/21/15 05/27/17 History Amlodipine [Norvasc] 10 mg PO DAILY 12/11/16 05/27/17 History Prozac (fluoxetine) 20 mg capsule 20 mg PO DAILY cap 04/29/17 05/27/17 History LORazepam [Ativan] 0.5 mg PO TID PRN 05/27/17 05/27/17 History Suvorexant [Belsomra] 5 mg PO HS 05/27/17 05/27/17 History Allergies Allergy/AdvReac Type Severity Reaction Status Date / Time latex Allergy Intermediate Rash Verified 05/27/17 10:22 levofloxacin Allergy Intermediate Verified 05/27/17 10:22 aspirin Allergy Unknown Tinnitus Verified 05/27/17 10:22 Penicillins Allergy Unknown Verified 05/27/17 10:22 lisinopril AdvReac Severe Cough Verified 05/27/17 10:22 Exam Vital Signs: Temperature 98.6 F 05/27/17 17:46 Pulse Rate 82 05/27/17 19:30 Respiratory Rate 50 H 05/27/17 19:30 Blood Pressure 153/73 H 05/27/17 19:26 Pulse Oximetry 96 -RA 05/27/17 19:30 EXAM: General-anxious female, push of speech HEENT-PERRL, EOMI without nystagmus, conjugate gaze, conjunctiva clear, sclera anicteric, facial structures symmetric, oropharynx clear, neck supple and without adenopathy Lungs-respirations nonlabored, good airflow, breath sounds clear Cardiac-regular rhythm, S1-S2-no murmur appreciated at this time however patient talked throughout the exam Abd-soft, nontender, bowel sounds present Ext-without edema Skin-no obvious wounds/rashes MS-degenerative changes and small joints of the hands, hypertropic changes of the knees Neuro-cranial nerves 3-12 intact, sensation intact to light touch across the face, both upper extremities, and both lower extremities, normal motor tone, using upper extremities actively/fluid leak, cycle repairer equal-4+/5, dorsiflexion/ plantarflexion intact bilateral lower extremities and able to raise each leg off the bed slightly-not tested further due to other testing going on at time of eval Psych-anxious, tearful at times Telemetry Rhythm: Sinus Rhythm Results - Labs CBC & Chem 7: 05/27/17 10:34 02 10:34 Labs: A1C 5.5, TSH 1.46; liver enzymes normal Troponin < 0.0122 Urine drug screen positive for benzos, cannabinoids UA unremarkable - ECG Data Tracing #1 I reviewed this ECG and interpreted as documented below: (sinus rhythm, diffuse T-wave flattening, no acute changes, prolonged QT interval) - Imaging and Cardiology CT scan - head Status: image reviewed by me (no acute intracranial abnormalities; no evidence of acute sinusitis. Stable 1 cm left frontal extra-axial lesion-probable meningioma or arachnoid cyst which is unchanged from 2015 per radiology.) Chest x-ray Status: image reviewed by me (NAD) Assessment and Plan (1) Suicidal ideation Current visit: Yes Status: Acute (2) Hypokalemia Current visit: Yes Status: Acute Assessment and Plan: Assessment: Suicidal ideation Hypokalemia Major depression/anxiety disorder Chronic pain syndrome Diabetes mellitus Sciatica, right-sided DJD Hypertension Aortic stenosis History left pontine CVA Hypothyroidism Hyperlipidemia IBS with constipation Plan: Luan is admitted to the intensive care unit due to suicidal ideation expressed in both Dr. Lin office and the emergency room. Talking with now her she continues to describe not wanting to live "this way" although does not describe any intent actually harm herself. She is clearly depressed and very anxious. Current psychiatric medications in adequately controlling symptoms. She has loss of interest in activities and caring for herself; has insomnia, poor oral intake, and perseveration on physical symptoms. Dr. Brock will be consulted and I suspect she would benefit from psychiatric admission. Prozac will be held and patient will be started on mirtazapine due to impaired appetite and sleep pending formal psychiatric evaluation. Potassium is low on admission although medication list does not indicate she is currently on a diuretic. We will need to clarify with Dr. Lin's office tomorrow. When discharged from rehabilitation last fall she was on Dyazide but was also on several medications including Plavix, lisinopril, and atorvastatin that do not appear on her current medication list. Given ischemic stroke 4 months ago patient clearly should be on an antiplatelet agent at a minimum. Statin would be desirable. Plavix will be restarted pending further clarification. Additionally need to clarify what if any evaluation of the lumbar spine has been pursued as patient has significant complaints that seem to center around right-sided sciatica. May require imaging if it is not been done previously. Description of pain does not suggest diabetic neuropathy but patient may benefit from Neurontin or Lyrica. Monitor blood sugars, diabetic diet, corrective insulin in conjunction with glipizide per 1/2 home dose. A1c well controlled. It is noted the patient reports taking [id number] and by mail nutritional supplements including bioequivalent estrogen replacement therapy in addition to other products for a variety of her concerns. PT/OT/speech therapy evaluations. DVT Prophylaxis: SCD's Resuscitation Status: Do Not Resuscitate - Physician Narrative Narrative: Date: 05/27/17 Time: 2014 Hospital Course Summary Disclaimer: The visit summary below is not to be considered part of the above Progress Note. Hospital Course: 05/27/17 Luan is admitted to the intensive care unit due to suicidal ideation expressed in both Dr. Lin office and the emergency room. Talking with her she continues to describe not wanting to live this way although does not describe any intent actually harm herself. She is clearly depressed and very anxious. Current psychiatric medications in adequately controlling symptoms. She has loss of interest in activities and caring for herself, insomnia, poor oral intake, and perseveration on physical symptoms. Dr. Brock will be consulted and I suspect she would benefit from psychiatric admission. Prozac will be held and patient will be started on mirtazapine due to impaired appetite and sleep pending formal psychiatric evaluation. Potassium is low on admission although medication list does not indicate she is currently on a diuretic. We will need to clarify with Dr. Lin's office tomorrow. When discharged from rehabilitation last fall she was on Dyazide but was on several medications including Plavix, lisinopril, and atorvastatin that do not appear on her current medication list. Given ischemic stroke 4 months ago patient clearly should be on an antiplatelet agent at a minimum. Statin would be desirable. Plavix will be restarted pending further clarification. Additionally need to clarify what if any evaluation of the lumbar spine has been pursued as patient has significant complaints that seem to center around right-sided sciatica. May require imaging if it is not been done previously. Description of pain does not suggest diabetic neuropathy but patient may benefit from Neurontin or Lyrica.
[2017-05-27 20:50] VITALS: BMI 28.6
[2017-05-27] MEDS ORDERED: INSULIN ASPART 100unit/ml INJECTION SQ PRN (20:53)
[2017-05-27] MEDS ORDERED: MIRTAZAPINE 15 MG TABLET PO SCH (21:00)
[2017-05-27] MEDS: LORazepam 0.5 MG TABLET PO PRN (23:04)
[2017-05-28] MEDS ORDERED: LEVOTHYROXINE 50 MCG TABLET PO SCH (06:30)
[2017-05-28] MEDS ORDERED: NON-FORMULARY MEDICATION 1 EACH EACH (Glipizide [Glipizide] 10 MG) PO SCH (08:00)
[2017-05-28] MEDS ORDERED: GlipiZIDE 5 MG TABLET PO SCH (08:00)
[2017-05-28] MEDS: LORazepam 0.5 MG TABLET PO PRN ×2 (08:35→13:44)
[2017-05-28] MEDS: AMLODIPINE 10 MG TABLET PO SCH (08:36)
[2017-05-28] MEDS ORDERED: CLOPIDOGREL 75 MG TABLET PO SCH (09:00)
[2017-05-28] MEDS ORDERED: POLYETHYL GLYCOL 3350 17gm PACKET PO SCH ×2 (09:00→21:00)
[2017-05-28] MEDS ORDERED: FLEET PHOSPHO - SODA ENEMA 133ml PR PRN (09:35)
[2017-05-28] MEDS ORDERED: BISACODYL 10 MG SUPPOSITORY RECTALLY PRN (09:35)
[2017-05-28 10:16] VITALS: TEMP 98.7
[2017-05-28] MEDS ORDERED: LOSARTAN 50 MG TABLET PO SCH (10:45)
[2017-05-28] MEDS ORDERED: METOCLOPRAMIDE 10mg/2ml INJECTION IVP ONE (12:30)
[2017-05-28] MEDS: ACETAMINOPHEN 500 MG TABLET PO PRN (14:21)
[2017-05-28 19:27] VITALS: BP 123/89; PULSE 101; RESP 68; O2SAT 94
[2017-05-28] MEDS ORDERED: SENNA + DOCUSATE TABLET PO SCH (21:00)
[2017-05-28] MEDS ORDERED: RANITIDINE 150 MG TABLET PO SCH (21:00)
--- NOTE | 2017-05-28 21:43 | Discharge Summary ---
Discharge Information Date of admission: 05/27/17 17:16 Anticipated date of discharge: 05/28/17 Attending Physician: Areli Burgos MD Primary care physician: Enedelia Basurto DO Consults: Consulting Provider: Dipti Brock Reason For Exam: suicidal ideation [facility] Screen [CONS] Routine - Discharge Diagnosis (1) Suicidal ideation Status: Acute (2) Hypokalemia Status: Acute Suicidal ideation Hypokalemia Major depression/anxiety disorder Chronic pain syndrome Diabetes mellitus Sciatica, right-sided DJD Hypertension Aortic stenosis History left pontine CVA Hypothyroidism Hyperlipidemia IBS with constipation - Laboratory Labs: On admission CBC was unremarkable, electrolytes were notable only for potassium of 3.3, liver enzymes were normal, troponin was <0.012 x 3, and TSH 1.46 05/28/17 06:11 - Radiology Radiology: Chest x-ray demonstrated no acute cardiopulmonary abnormality. Noncontrast CT of the head revealed a stable 1 cm left frontal extra-axial lesion consistent with meningioma or arachnoid cyst which was unchanged compared to 07/14/2014. There are scattered areas of low attenuation in the white matter consistent with chronic microvascular ischemia. No evidence of acute intracranial pathology. History of Present Illness HPI: Ms. Ge is a 72 yo woman with multiple chronic complaints and chronic pain who reports that she just doesn't want to hurt anymore. She was seen in Dr. Lin's office earlier today and apparently reported that she wanted to kill herself; she subsequently reiterated this on evaluation in the emergency room although did not describe a plan. While undergoing evaluation in the emergency room potassium was found to be 2.9 and she is subsequently admitted to the medical service in the ICU for medical stabilization prior to consideration of psychiatric admission. On evaluation to the ICU the patient talks nonstop about weird sensations in her head, feeling that the left side of her body is weak intermittently although past stroke affected her right side, minor noises causing her to startle and frighten her if she is awake or awaken her from sleep repetitively and subsequently she gets no rest. She describes tingling and piercing pains in various places throughout her body most notably in the right hip and groin where she's been told she has sciatica. She also describes her left knee giving out and that these symptoms "just scare me to ". She believes she has a pinched nerve in her neck causing her to have frequent headaches and that she feels like there are things crawling in/on her neck. She reports that she frequently panics when she has any sort of pain and that she simply can't go on living like this. She went on to say she doesn't think anyone is listening to her and that nothing is being done to help her. She expressed concern that she had cancer or brain tumor or an infection or some other problem. She is caring multiple records from hospitalization at [facility] and points out prior diagnoses related to her stroke questioning why they told her she had dementia although dementia was not listed; she additionally has a CD of diagnostic studies done while she was hospitalized at [facility] for her stroke. Following her stroke fluoxetine dose was increased from 30 mg daily to 40 mg daily but since that time doses been decreased to 20 mg a day. Objective Vital signs: 123/89, 97.5 Rhythm: Normal Sinus Rhythm Height/Weight/BMI: Height 1.57 m Weight 71 kg Body Mass Index 28.6 - Constitutional Present: no acute distress - Routine Respiratory Exam Comments: Respirations are nonlabored, good airflow, breath sounds clear - Routine Cardiovascular Exam Present: RRR, S1, S2 - Routine Abdominal Exam Present: soft, non tender - Routine Neurological Exam L-SLR 90, R-SLR 85 and limited by hamstring tightness, sciatica/hip/lateral leg pain not described - Routine Psychiatric Exam Present: anxious (less push of speech and perseveration today than yesterday). Absent: suicidal ideation Hospital Course This is a general summary of the patient's hospital course. For more details refer to the complete medical record. Hospital course: 05/27/17 Luan is admitted to the intensive care unit due to suicidal ideation expressed in both Dr. Lin office and the emergency room. Talking with her she continues to describe not wanting to live this way although does not describe any intent actually harm herself. She is clearly depressed and very anxious. Current psychiatric medications in adequately controlling symptoms. She has loss of interest in activities and caring for herself, insomnia, poor oral intake, and perseveration on physical symptoms. Dr. Brock will be consulted and I suspect she would benefit from psychiatric admission. Prozac will be held and patient will be started on mirtazapine due to impaired appetite and sleep pending formal psychiatric evaluation. Potassium is low on admission although medication list does not indicate she is currently on a diuretic. We will need to clarify with Dr. Lin's office tomorrow. When discharged from rehabilitation last fall she was on Dyazide but was on several medications including Plavix, lisinopril, and atorvastatin that do not appear on her current medication list. Given ischemic stroke 4 months ago patient clearly should be on an antiplatelet agent at a minimum. Statin would be desirable. Plavix will be restarted pending further clarification. Additionally need to clarify what if any evaluation of the lumbar spine has been pursued as patient has significant complaints that seem to center around right-sided sciatica. May require imaging if it is not been done previously. Description of pain does not suggest diabetic neuropathy but patient may benefit from Neurontin or Lyrica. 05/28/17 Luan reports that breathing is significantly better today and no longer describes feeling that life isn't worth living. She continues to struggle with constipation which is her primary concern today and she requested additional laxatives and an enema. After several doses of milk of magnesia/prune juice and part of a fleets enema in conjunction with some manual disimpaction she had several bowel movements and felt significantly better other than irritation of hemorrhoids. She ambulated in the halls with physical therapy and was calmer today overall compared to admission. It's noted that when she worked with physical therapy that she seemed to perseverate on fear of dying alone which she did not voice when speaking with me. Medications were reviewed with the patient extensively and she indicated she discontinued atorvastatin due to intolerance and Plavix because it aggravated constipation and irritable bowel syndrome. I pointed out that she still had both of those things and that perhaps it was worth resuming it to minimize risk of recurrent stroke she later agreed that she would try it again. She discontinued lisinopril due to cough and was willing to try losartan. She reported that blood sugars have been low at home and I recommended reduction in dose of glipizide. She was seen in consultation by Dr. Brock and did not describe suicidal thoughts or intent. Continued outpatient management was recommended for chronic anxiety and personality disorder. Patient reported sleeping well with mirtazapine and it will be continued. Patient stable for discharge today with adjustment in medications as noted below : Resumption of Plavix 75 mg daily Initiation of losartan 50 mg daily Initiation of mirtazapine 7.5 mg daily Amlodipine decreased to 5 mg daily Glipizide decreased to 10 mg daily Addition of MiraLAX and senna twice daily to help with chronic constipation Discontinuation of prior sleeping medication and Colace was recommended. Patient was given a prescription for 12 tablets of lorazepam until she can contact her usual behavioral health provider for further refills. Home health was recommended for further strengthening and case management will assist in coordination if patient is agreeable to doing so post discharge as final discharge arrangements were made after hours. Time spent with patient: greater than 35 minutes Discharge Plan - Discharge Disposition Discharge Date: 05/28/17 Disposition: 01 Discharged Home, Self-Care *Condition: Improved Reason For Visit (Visit label in EMR): suicidal statements - Discharge Medications *Discharge Medications: New Clopidogrel [Plavix] 75 mg PO DAILY #30 tab Losartan [Cozaar] 50 mg PO DAILY #30 tab PEG 3350 17gm PACKET [Miralax] 17 gm PO BID packet Senna + Docusate [Senna Plus Tablet] 2 tab PO BID tablet Mirtazapine [Remeron] 7.5 mg PO HS #15 tab Continue raNITIdine HCl [Zantac] 1 tab PO HS LORazepam [Ativan] 0.5 mg PO TID PRN #12 tab PRN Reason: Anxiety Levothyroxine Sodium 50 mcg PO ACB #0 Changed Amlodipine [Norvasc] 5 mg PO DAILY #0 glipiZIDE [Glipizide] 10 mg PO DAILY #0 FLUoxetine [Prozac] 30 mg PO DAILY #0 cap Discontinued Suvorexant [Belsomra] 5 mg PO HS Docusate Sodium [Colace] 1 cap PO 6XD PRN PRN Reason: Stool Softening - Discharge Packet/Instructions *Diet: diabetic *Activity: as tolerates, exercise is good for you *Pain Management/Treatment: Tylenol if something is needed *Wound Care: Not applicable Additional Instructions: -Add MiraLAX twice daily to help with bowel function and help manage irritable bowel syndrome; and alternate fiber supplement is fine if you prefer something else. -Try senna or Senokot 2 tablets twice daily in place of Colace to help with constipation. -Decrease glipizide to 10 mg once daily, continue to monitor your blood sugars. -Decrease Norvasc ( amlodipine) to 5 mg daily--1/2 of 10 mg tablet daily. -Add losartan (Cozaar) 50 mg daily to help with blood pressure control and minimize risk of potassium being low. -Add mirtazapine (Remeron) 7.5 mg at bedtime to help with depression and sleep--1/2 of 15 mg tablet. -Resume Plavix 75 mg daily to prevent stroke; talk to Dr. Lin about [id number] cholesterol rechecked to determine if you should consider a cholesterol lowering medicine. *Expected Signs/Symptoms: Anticipate diarrhea after multiple medications taken during the hospitalization for constipation; continued anxiety-follow up with your mental health provider. *Notify Physician if: Any significant change-especially if you feel you would harm herself *During Business Hours Contact: [facility] *After Business Hours Contact: Call [facility] at [phone] and ask that the on-call physician be paged for Dr. Lin *Pending Lab/Results: No Pending Lab - Referrals/Follow Up *Referrals/Follow Up: Favian Lin DO [Physician] - 1 Week - Patient Handouts Patient Handouts: Irritable Bowel Syndrome (DC), Constipation (DC), Generalized Anxiety Disorder (GEN) - Dismissal Complete Discharge Instructions are:: Complete Physician Narrative - Narrative Attestation Narrative: Date: 05/28/17 Time: 2138
[2017-05-29] MEDS ORDERED: AMLODIPINE 5 MG TABLET PO SCH (09:00)
--- NOTE | 2017-05-29 14:57 | Neuropsychiatric Consult ---
[facility] Date: 05/29/17 Requesting Physician: Areli Burgos Reason for Consultation: Safety evaluation Start Time: 13:20 Stop Time: 14:00 History of Present Illness: Patient is a 72-year-old female who initially came to the ED on 05/28 with SI related to not feeling well physically. Per ED physician, "Patient also notes anxiety with palpitations. She denies true chest pain or discomfort. Patient states that she has been experiencing dizziness and palpitations secondary to anxiety since her stroke several years ago. These are not new symptoms." In the ED, patient was found to have a potassium level of 2.9; potassium was replaced and patient was admitted to medical floor for observation. Psychiatry was then consulted for a safety evaluation. The clinical program consultant of [facility] spoke with the patient earlier in the day and she denied any current suicidality at that time, saying she had reported those thoughts due to not wanting to go on feeling that way physically - but now that she is feeling better, no longer having morbid thoughts. On interview, patient is fully oriented but can be quite tangential and difficult to keep on topic. She has a long history of seeing psychiatrists and typically is not happy with any of them for various reasons. She tells me that she has had sadness since her mother in 1999 and she has had morbid thoughts throughout her life, but she has no plan to act on them. She feels that God really wants her to be alive. She states that if she became more serious about harming herself, she would reach out to someone. She denied symptoms consistent with a severe depression other than difficulty sleeping and increased anxiety. She was able to sleep well here last night with mirtazapine. Now she just feels that she needs to relieve her constipation and she would prefer to go home and f /u with her outpatient psychiatrist (Samantha Campos at [facility]) who knows her well. She tells me, "I just need Ativan 5mg three times a day." I told her I would not be prescribing that to her in the hospital though she states it really helps and she feels it is safe. Patient denies current SI, HI, AVH, symptoms consistent with bandar. Depression: Increased Anxiety, Difficulty Sleeping Anxiety: Chest Pain, Extremity Numbness/Tingling PFS Patient Stated Medical History Transient Ischemic Attacks ( Yes: right side weakness Dec TIA) Hypertension Yes Sleep Apnea No Diabetes Mellitus Type 2 Yes Gastroesophageal Reflux Yes Disease Other GI Yes: IBS, constipation Hx Incontinence Yes: Used to leak after hysterectomy Osteoarthritis Yes Anesthesia Reactions Yes: N/V Depression Yes Uterine Prolapse Yes Clinic Medical History (Last Updated 05/27/17 @ 20:14 by Areli Burgos MD) Adult hypothyroidism (Acute Medical) Aortic stenosis (Acute Medical) Cerebrovascular accident (CVA) of left pontine structure (Acute Medical) Diabetes mellitus, type 2 (Acute Medical) IBS (irritable bowel syndrome) (Acute Medical) Sciatica of right side (Acute Medical) Anxiety (Chronic Medical) Hernández's palsy (Chronic Medical) Depression (Chronic Medical) HTN (hypertension) (Chronic Medical) High cholesterol (Chronic Medical) Osteoarthritis (Chronic Medical) Surgical History: Hysterectomy & BSO, Tonsillectomy, Multiple nasal surgeries, cholecystectomy, Lt wrist-ORIF, tubal ligation,. Right total knee replacement . Transthoracic echocardiogram 12/2016 EF 55-65%, some dilatation of left atrium. Carotid ultrasound 12/2016 mild atherosclerotic plaque in both carotids without hemodynamically significant stenosis Family History: Family History (Last Reviewed 05/27/17 @ 20:06 by Areli Burgos MD) Father HTN (hypertension) Heart attack Mother Diabetes Osteoarthritis - Social History Current residence: Apartment/Private Home Review of Systems All systems: reviewed and no additional remarkable complaints except as stated - Constitutional Constitutional: Present: fatigue - Cardiovascular Cardiovascular: Present: as per HPI - Respiratory Respiratory: Present: dyspnea - Gastrointestinal Gastrointestinal: Present: abdominal pain, constipation - Neurological Neurological: Absent: memory loss - Psychiatric Psychiatric: Present: as per HPI, abnormal sleep pattern, anxiety. Absent: auditory hallucinations, behavioral changes, homicidal ideation, suicidal ideation, visual hallucinations Mental Status Exam Vitals: Last Vital Signs Temp 98.7 F 05/28/17 10:00 Pulse 101 H 05/28/17 19:00 Resp 68 H 05/28/17 19:00 BP 123/89 05/28/17 18:01 Pulse Ox 94 05/28/17 17:00 Height: 1.57 m Weight: 71 kg - Mental Status Exam Muscle Strength/Tone: Normal Dressing: Casual Grooming: Fair Attitude: Cooperative, Manipulative Motor Activity: Normal Eye Contact: Good Speech: Rapid Volume: Normal Rhythm: Appropriate Rhythm Sensory: Alert Orientation: Oriented X4 Mood: Neutral Affect: Anxious Rate of Thoughts: Appropriate Rate Thought Organization: Tangential Associations: Intact Abstract Reasoning: Poor abstract reasoning Thought Content: Ruminations, Somatic Concerns Perception/Psychotic: Perception Normal Language: Naming Intact Fund of Knowledge: Appropriate Memory: Grossly Intact Suicidal Ideation: Denies Homicidal Ideation: Denies Insight: Fair Judgement: Fair Impulse Control: Fair - Laboratory Result Diagrams: 05/27/17 10:34 05/28/17 06:11 Assessment and Plan (1) Anxiety disorder, unspecified Status: Acute History of CVA Symptoms resolved now that patient is medically stable. Continue home psychiatric medications and f/u with outpatient psychiatrist at [facility] as soon as possible. Patient states that she would prefer to continue care with this provider, who knows her well. She denies any active SI and states she would call 911 if this were to happen after discharge.
== END 2017-05-28 19:10 | disposition home or self-care (01) ==
LOC: CCU 09:49 → ED 09:49 → CCU 17:30
PROVIDERS: ADMIT Internal Medicine; ATTEND Internal Medicine